=== PATIENT | female | born 1955 | race Caucasian/White ===

== ENCOUNTER 2019-06-23 18:11 | Emergency (ER) | payer MEDICAID, SELFPAY ==
--- NOTE | 2019-06-23 18:24 | XR_ITS ---
WS: [id number] RIGHT KNEE: 3 VIEW(S) TECHNIQUE: AP, oblique(s) and lateral. HISTORY: injury COMPARISON: 10/21/2018 Mild narrowing of the medial and patellofemoral compartments. Chondrocalcinosis in the medial and lat eral compartments. No joint effusion. XR/XR knee RT 3V* [id number] IMPRESSION: 1. Mild osteoarthritis medial and patellofemoral compartments. 2. No fracture.
[2019-06-23 18:50] VITALS: BMI 39.3
--- NOTE | 2019-06-23 19:52 | W.ED.EXTPRO ---
HPI - Extremity Problem General: Chief complaint: Extremity Problem,Nontraumatic Stated complaint: right knee pain Time Seen by Provider: 06/23/19 19:52 History of Present Illness: HPI Narrative: Kellie is a very nice 63-year-old female who comes in complaining of right medial knee pain. She states that she does not remember a specific injury but it is very possible she may have twisted or turned on her knee wrong. She states that she has chronic pain in it for secondary to osteoarthritis. When asked to indicate where her pain was she states is primarily along the medial aspect but when she bears weight it hurts more around to the front. She denies any fever, knee swelling, redness, pain in her thigh or calf, or chest pain or shortness of breath. Associated symptoms: Deny chest pain, fever(s) or rash Review of Systems General: Reports: other (negative unless marked) Const: Denies: fever, chills, body aches, fatigue, malaise or diaphoresis Eyes: Denies: change in vision or blurry vision ENMT: Denies: throat pain, painful swallowing, hoarseness, ear pain, ear discharge, Change in hearing or nasal discharge Card: Denies: chest pain, palpitations, irregular heart rhythm, syncope, pre-syncope, shortness of breath on exertion or shortness of breath when lying down Resp: Denies: shortness of breath, productive cough, non-productive cough, wheezing, coughing up blood or chest congestion GI: Denies: abdominal pain, nausea, vomiting, vomiting blood, coffee grounds in vomit, diarrhea, constipation, cramping, blood in stool or black tarry stool : Denies: flank pain, painful urination, urinary frequency, urinary urgency, decreased urine ouput, urinary incontinence or blood in urine Musc: Reports: joint pain; Denies: neck pain, back pain, extremity pain, extremity swelling, joint swelling, joint warmth or joint stiffness Skin/Breast: Denies: rash, skin tenderness or yellow skin Neuro: Denies: headache, numbness in extremities, weakness in extremities, changes in sensation, lack of coordination, difficulty walking, dizziness, vertigo or confusion Endo: Denies: excessive thirst, tired all the time, cold intolerance, excessive sweating, flushing or hot flashes [place]/Lymph: Denies: easy bruising, easy bleeding, petechiae or enlarged lymph nodes All/Imm: Denies: hives, throat swelling, tongue swelling, facial swelling or acute wheezing PFSH ED PFSH: Medical History Coronary artery disease Fibromyalgia GERD (gastroesophageal reflux disease) Hyperlipidemia Hypertension Surgical History History of left knee replacement Family History Other CAD (coronary artery disease) Cancer Diabetes Social History Smoking and tobacco status: never smoked Physical Exam Extremity: OTHER: Right knee with mild pain while patient along the medial joint line and medial collateral ligament. No warmth to the touch, no swelling noted. No pain in the popliteal fossa. No cordlike structure or pain in the calf or thigh. Negative Homans sign. No evidence of DVT based upon exam. Leg is neurovascularly intact distal. MDM - Extremity (Nontraumatic) MDM Narrative: Medical decision making narrative: Ms. Cash is a very nice 63-year-old female who comes in complaining of right knee pain along the medial joint line and anterior aspect. Her x-rays reveal osteoarthritis changes but no other acute findings. Patient states that she has more pain when she bears weight and the pain radiates around to the front of her knee. At this point time I do not suspect a septic joint as she has no fever, no chills, the knee is not swollen or hot. I did discuss with her the possibility of a DVT although she has no history of DVT. Her pain is only in her knee and not in her lower leg or thigh. Her pain is mostly when she ambulates and not at rest. She adamantly denies any chest pain or shortness of breath. Nonetheless I recommended we do an ultrasound to evaluate for this but she refuses. She was to be discharged home with something for pain. She states she would rather have a work-up done by Dr. Chacon as he is worked on her in the past and she chooses to follow-up with him the weight here and have anything else done. I believe some of this decision is secondary to the pandemic of COVID-19 and she does not want to be around here but simply wants something for pain. I do believe pain medication is warranted here but I wish she would let us evaluate her knee further but she declines. She understands the risks of a DVT including ultimately or severe permanent disability by pulmonary embolism but despite this she refuses any further work-up and wants to be discharged home. Imaging Data^: Rt. Knee : Attestation: I personally reviewed and interpreted this imaging study as follows: My impression: Degenerative changes but no evidence of acute fracture or dislocation. Discharge Plan Discharge Patient Disposition: Home, Self-Care Clinical Impression: Acute knee pain Qualifiers: Laterality: right Qualified Code(s): M25.561 - Pain in right knee Condition: Stable Prescriptions: [place] 5-325 mg tablet 1 tab PO Q6H PRN (Reason: pain) 5 Days Qty: 10 RF: 0 Discharge Orders: Discharge Order (Routine); Ordered 06/23/19 Ordered By: Gertrudis Morelos Referrals: Bhargav Chacon MD [Physician] - 1-3 days Ghulam Pettit MD [Primary Care Provider] - Discharge Diet: Advance as tolerated Discharge Activity: Limit activity as instructed and Use walker/crutches as instructed Patient Instructions: Knee Pain (ED) Activity Restrictions/Additional Instructions: Please return to the ER immediately for any of the signs or symptoms listed on your discharge instruction sheets, worsening/changing of your symptoms, you are not getting better as quickly as expected, or for ANY other cause or concerns. Use your knee immobilizer and crutches at all times and do not bear weight on your leg if you have pain. I have recommended and offered to do an ultrasound to rule out a blood clot in your leg which can be a life-threatening issue but you have refused. If you change your mind or you develop pain in your upper leg or your calf it is imperative you return for further evaluation and care. Be certain to follow-up with Dr. Chacon as soon as possible. Discharge Date/Time: 06/23/19 20:04 Coding Level of Care Code ED Health Safety Engineer for Blaise Burks
--- NOTE | 2019-06-23 21:21 | PC.NURSE ---
assess patient in triage, Dr Morelos saw pt in triage room. pt refused ultrasound of leg. states that she has an appt with ortho dr in july. wrapped pts knee up and provided her with discharge paperwork
--- NOTE | 2019-06-25 09:56 | DCPLANNER ---
manager field had message to schedule follow up appointment for patient with ortho. manager field called the ortho clinic, spoke with Kimmie, gave clinic patients information. manager field was told that patients information would be printed and reviewed. Clinic will call family preservation caseworker and patient with appointment information.
--- NOTE | 2019-06-26 12:40 | DCPLANNER ---
Patient has a follow up appointment scheduled for July at 3:[address] Chacon. Clinic will call patient with appointment information.
--- NOTE | 2019-08-27 15:15 | DCPLANNER ---
Patient did attend appointment scheduled for 07.23.19 with ortho.
== END 2019-06-23 20:04 | disposition home or self-care (01) ==
LOC: ER 20:04
PROVIDERS: Emergency Provider Emergency Medicine; Family Provider Family Medicine; PCP Family Medicine
DX: M25.561 Pain in right knee (principal); I25.10 Atherosclerotic heart disease of native coronary artery without angina pectoris; M79.7 Fibromyalgia; E78.5 Hyperlipidemia, unspecified; K21.9 Gastro-esophageal reflux disease without esophagitis; I10 Essential (primary) hypertension; Z82.49 Family history of ischemic heart disease and other diseases of the circulatory system; Z83.3 Family history of diabetes mellitus
CPT/HCPCS: 12345; 73562; 99281; 99283

== ENCOUNTER 2019-09-21 12:07 | Observation (INO) | payer MEDICAID, SELFPAY ==
[2019-09-18 08:06] VITALS: BMI 38.7
--- NOTE | 2019-09-18 08:16 | ECG_ITS ---
[facility] Test Date: 2019-09-18 Pat Name: Kellie Cash Department: Room: Gender: Female Diagram Clerk: : 1955 Requested By: Jabier Bryant Order Number: [id number] Shyla MD: Santosh Salguero M.D. Measurements Intervals [place] Rate: 57 P: 26 AL: 167 QRS: 5 QRSD: 94 T: 21 QT: 423 QTc: 414 Interpretive Statements SINUS BRADYCARDIA Compared to ECG 05/28/2017 12:56:28 Sinus rhythm no longer present Electronically Signed On 09-18-2019 19:06:14 CDT by Santosh Salguero M.D. [id number]
--- NOTE | 2019-09-18 08:26 | ANES.PREANE2 ---
Pre-Anesthetic Assessment Pre-Anesthetic Assessment: Height/Weight: Height 1.57 m Weight 96.162 kg Preop Diagnosis: Osteoarthritis left knee Proposed Procedure: Operation Date: 09/21/19 09:25 Proposed Procedures p Total Knee Arthroplasty Right/76427 M17.11(Right) - Bhargav Chacon MD Social: Social History: No alcohol and No tobacco Exam: Pre-Anes Outpt Exam: alert, oriented x 3, clear to auscultation bilaterally and regular rate & rhythm Airway: Submandibular: WNL Cervical ROM: WNL MP: 2 Dentition: Other (poor dentation) History/ROS: No significant history except as noted Pulmonary: Pulmonary: None reported CV/HEM: CV/HEM: CAD and HTN : : None reported Hepatic: Hepatic: None reported GI: GI: None reported Metabolic: Metabolic: DM, Hyperlipidemia and Morbid obesity Musc/skel: Musc/skel: Lower Back Pain and OA/DJD Neuropsych: Neuropsych: None reported Anesthetic Plan: ASA status: 3 Anesthesia: Anesthesia Evaluation, Eval. for regional block, General and Regional (specify below) (right AC) Risk of > 500 ml blood loss (7ml/kg in children): No PFSH Anesthesia PFSH: Medical History Coronary artery disease Fibromyalgia GERD (gastroesophageal reflux disease) Hyperlipidemia Hypertension Surgical History History of left knee replacement Family History Other CAD (coronary artery disease) Cancer Diabetes Social History Smoking and tobacco status: never smoked Data Anesthesia Cardiac Studies: No Data to Display
[2019-09-18 09:07] LABS: Basophils # 0.1 10^3/uL (0.0-0.1); Basophils % 0.7 %; Eosinophils # 0.2 10^3/uL (0.0-0.8); Eosinophils % 2.2 %; Hematocrit 40.3 % (37.0-47.0); Hemoglobin 13.4 g/dL (11.5-15.3); Lymphocytes # 2.9 10^3/uL (0.8-4.8); Lymphocytes % 39.6 %; Mean Corpuscular HGB Conc 33.3 g/dL (30.0-36.0); Mean Corpuscular Hemoglobin 31.9 pg (28.0-34.0); Mean Platelet Volume 11.9 fL (7.4-10.4); Monocytes # 0.5 10^3/uL (0.2-0.9); Monocytes % 7.4 %; Neutrophils # 3.59 10^3/uL (1.8-7.7); Neutrophils % 49.8 %; Nucleated Red Blood Cells % 0 %; Platelet Count 218 10^3/cmm (130-400); Red Cell Distribution Width 12.5 % (12.1-15.1); White Blood Count 7.2 10^3/uL (4.0-10.0)
[2019-09-18 09:26] LABS: Add Urine Culture? No; Add Urine Microscopic? YES; Bacteria Urine 1+; Bilirubin Urine Neg (NEGATIVE); Blood Urine Neg (Negative); Glucose Urine UA Norm (Normal); Ketones Urine Negative (Negative); Leukocyte Esterase Urine 2+ (Negative); Mucus Urine 1+; Nitrate Urine Negative (Negative); Protein Urine Neg (Negative); RBC Urine 0-4 /hpf (0-2); Specific Gravity, Urine 1.015 (1.005-1.030); Urine Appearance SL Hazy (CLEAR); Urine Color Yellow (Yellow); Urobilinogen Urine 1 mg/dL (Negative); pH Urine 5 (5-7)
[2019-09-18 10:42] LABS: Alanine Aminotransferase 20 U/L (0-33); Albumin Level 4.2 g/dL (3.5-5.2); Alkaline Phosphatase 72 IU/L (35-105); Anion Gap 15.5 (5-19); Aspartate Amino Transferase 22 U/L (0-32); Blood Urea Nitrogen 10 mg/dL (8-23); Calcium 9.1 mg/dL (8.5-10.5); Carbon Dioxide 27 mmol/L (22-29); Chloride 100 mmol/L (98-107); Globulin 2.7 g/dL (1.3-4.6); Glomerular Filtration Rate 124.6 mL/min (90-130); Glucose 124 mg/dL (65-115); Osmolality Calculated 285 mOsm/kg (285-295); Potassium 3.5 mmol/L (3.5-5.1); Sodium 139 mmol/L (136-145); Total Bilirubin 0.3 mg/dL (0.15-1.2); Total Protein 6.9 g/dL (6.6-8.7)
[2019-09-21] VITALS (20 sets, daily range): BP systolic 123–175; BP diastolic 79–99; PULSE 62–108; RESP 12–18; TEMP 36.4–37; O2SAT 90–100
[2019-09-21] MEDS: sodium chloride 0.9% 1,000 ML 30 ML IV (07:54)
[2019-09-21 07:55] LABS: Glucose Point of Care 144 mg/dL (70-110)
[2019-09-21] MEDS: fentaNYL 50 mcg/mL INJ 2mL 100 MCG IVP (08:35)
--- NOTE | 2019-09-21 08:36 | ANES.PREANE2 ---
Pre-Anesthetic Assessment Pre-Anesthetic Assessment: Height/Weight: Height 1.57 m Weight 96.162 kg Temp Pulse Resp BP Pulse Ox 97.9 F 62 17 155/95 95 09/21/19 07:38 09/21/19 07:38 09/21/19 08:35 09/21/19 07:38 09/21/19 07:38 Preop Diagnosis: Osteoarthritis left knee Proposed Procedure: Operation Date: 09/21/19 09:25 Proposed Procedures p Total Knee Arthroplasty Right/85022 M17.11(Right) - Bhargav Chacon MD Was Beta Quinn taken within 24 hours: Yes Last intake: Intake Last Liquid Date 09/21/19 Last Liquid Time 06:00 Last Solid Date 09/20/19 Last Solid Time 18:00 Social: Social History: No alcohol and No tobacco Exam: Pre-Anes Outpt Exam: alert, oriented x 3, clear to auscultation bilaterally and regular rate & rhythm Airway: Submandibular: WNL Cervical ROM: WNL MP: 2 History/ROS: No significant complaints Pulmonary: Pulmonary: None reported CV/HEM: CV/HEM: HTN : : None reported Hepatic: Hepatic: None reported GI: GI: GERD Metabolic: Metabolic: DM and Morbid obesity Musc/skel: Musc/skel: OA/DJD Neuropsych: Neuropsych: None reported Anesthetic Plan: ASA status: 3 Anesthesia: General and Regional (specify below) Other: Right Adductor Canal Block Risk of > 500 ml blood loss (7ml/kg in children): Yes, adequate IV access and fluids planned Meds/Allergies Current Medications: Current Medications Generic Name Dose Route Start Last Admin Trade Name Freq PRN Reason Stop Dose Admin Sodium Chloride 1,000 mls @ 30 ml s/hr 09/21/19 07:30 09/21/19 07:54 Sodium Chloride 0.9% IV 09/22/19 07:29 30 mls/hr .Q24H ALESSIO Administration PFSH Anesthesia PFSH: Medical History Coronary artery disease Fibromyalgia GERD (gastroesophageal reflux disease) Hyperlipidemia Hypertension Surgical History History of left knee replacement Family History Other CAD (coronary artery disease) Cancer Diabetes Social History Smoking and tobacco status: never smoked Data Anesthesia CBC & Chem 7: 09/18/19 08:42 09/18/19 08:42 Other Labs: Laboratory Results - last 48 hr 09/21/19 07:53 POC Glucose 144 Cardiac Studies: No Data to Display
--- NOTE | 2019-09-21 08:39 | ANES.PREANE2 ---
Pre-Anesthetic Assessment Pre-Anesthetic Assessment: Height/Weight: Height 1.57 m Weight 96.162 kg Temp Pulse Resp BP Pulse Ox 97.9 F 62 17 155/95 95 09/21/19 07:38 09/21/19 07:38 09/21/19 08:35 09/21/19 07:38 09/21/19 07:38 Preop Diagnosis: Osteoarthritis left knee Proposed Procedure: Operation Date: 09/21/19 09:25 Proposed Procedures p Total Knee Arthroplasty Right/15496 M17.11(Right) - Bhargav Chacon MD Last intake: Intake Last Liquid Date 09/21/19 Last Liquid Time 06:00 Last Solid Date 09/20/19 Last Solid Time 18:00 Meds/Allergies Current Medications: Current Medications Generic Name Dose Route Start Last Admin Trade Name Freq PRN Reason Stop Dose Admin Sodium Chloride 1,000 mls @ 30 ml s/hr 09/21/19 07:30 09/21/19 07:54 Sodium Chloride 0.9% IV 09/22/19 07:29 30 mls/hr .Q24H ALESSIO Administration PFSH Anesthesia PFSH: Medical History Coronary artery disease Fibromyalgia GERD (gastroesophageal reflux disease) Hyperlipidemia Hypertension Surgical History History of left knee replacement Family History Other CAD (coronary artery disease) Cancer Diabetes Social History Smoking and tobacco status: never smoked Data Anesthesia CBC & Chem 7: 09/18/19 08:42 09/18/19 08:42 Other Labs: Laboratory Results - last 48 hr 09/21/19 07:53 POC Glucose 144 Cardiac Studies: No Data to Display Anesthesia Procedures Nerve Block ^: Nerve Block 1: Time Out Performed: No Consent: requested by attending/covering physician, risks and benefits reviewed and patient agrees to proceed Nerve block location: adductor canal (Right) Anesthesia monitors applied: pulse oximetry and BP cuff Nerve block position: supine Anesthetic Used: ropivicaine 0.5% (20 ml) Ultrasound used to: recognize landmarks Nerve Stimulator Used?: No Interscalene/Femoral BLK: 4 stimuplex 21 g needle used for position and inplane approach Injection: neg aspiration of heme Patient Tolerated Procedure: well, no complications and other Complications: none
--- NOTE | 2019-09-21 08:52 | P.HP_ITS ---
Same Day Surgery H&P Indication for Procedure/HPI DATE OF PROCEDURE: September 21, 2019 CHIEF COMPLAINT/INDICATIONFOR SURGICAL PROCEDURE: Osteoarthritis right knee PREOP DIAGNOSIS: Osteoarthritis left knee PLANNED PROCEDRUE: Operation Date: 09/21/19 09:25 Proposed Procedures p Total Knee Arthroplasty Right/77633 M17.11(Right) - Bhargav Chacon MD Medications/Allergies* Home Medications Medication Instructions Recorded Confirmed Type aspirin 325 mg PO DAILY 09/18/19 09/21/19 History cetirizine 10 mg PO DAILY 09/18/19 09/21/19 History cholecalciferol (vitamin D3) 25 mcg PO DAILY 09/18/19 09/21/19 History [Vitamin D3] famotidine 20 mg PO BID 09/18/19 09/21/19 History fluoxetine 20 mg PO DAILY 09/18/19 09/21/19 History gabapentin 400 mg PO BID 09/18/19 09/21/19 History indapamide 2.5 mg PO DAILY 09/18/19 09/21/19 History metformin 1,000 mg PO BID 09/18/19 09/21/19 History metoprolol tartrate 25 mg PO BID 09/18/19 09/21/19 History potassium chloride 20 meq PO DAILY 09/18/19 09/21/19 History simvastatin 20 mg PO DAILY 09/18/19 09/21/19 History Allergies/Adverse Reactions Allergy/AdvReac Type Severity Reaction Status Date / Time celecoxib [From Celebrex] Allergy ALGY-Rash Verified 09/21/19 07:38 codeine Allergy ALGY-Rash Verified 09/21/19 07:38 lisinopril Allergy ALGY-Rash Verified 09/21/19 07:38 lorazepam [From Ativan] Allergy ADR-Halluci Verified 09/21/19 07:38 nating naproxen Allergy ALGY-Rash Verified 09/21/19 07:38 nitroglycerin Allergy ALGY-Rash Verified 09/21/19 07:38 oxycodone [From Percodan] Allergy ALGY-Rash Verified 09/21/19 07:38 tramadol [From Ultram] Allergy ALGY-Rash Verified 09/21/19 07:38 Current Medications: Generic Name Dose Route Start Last Admin Trade Name Freq PRN Reason Stop Dose Admin Sodium Chloride 1,000 mls @ 30 mls/hr 09/21/19 07:30 09/21/19 07:54 Sodium Chloride 0.9% IV 09/22/19 07:29 30 mls/hr .Q24H ALESSIO Administration Pertinent History/Comorbid Conditions* Medical History (Updated 07/01/19 @ 00:00 by ) Coronary artery disease Fibromyalgia GERD (gastroesophageal reflux disease) Hyperlipidemia Hypertension Surgical History (Updated 06/23/19 @ 20:56 by Gertrudis Morelos) History of left knee replacement Family History (Updated 06/23/19 @ 20:56 by Gertrudis Morelos) Diabetes CAD (coronary artery disease) Cancer Social History Smoking and tobacco status: never smoked Pertinent Exam Findings alert, oriented x 3, clear to auscultation bilaterally and regular rate & rhythm Recommendations Surgery/Procedure today Coding Level of Care Code Acute Casting Machine Adjuster for Blaise Burks
--- NOTE | 2019-09-21 10:31 | SUR.OPER ---
1027 - Pt's Eliazar updated on surgery progress and pt status via his cell phone.
[2019-09-21] MEDS: tranexamic acid 1,000 mg/10mL SDV 1000 MG IRRIGATION (10:44)
[2019-09-21] MEDS: EPINEPHrine 1 mg/mL INJ XX (10:47)
[2019-09-21] MEDS: ketorolac 30 mg/mL INJ XX (10:47)
--- NOTE | 2019-09-21 11:18 | P.OP_ITS ---
Operative Report Date of procedure: September 21, 2019 Pre-op Diagnosis: Osteoarthritis right knee Post-op diagnosis: same Post-op Findings: Same Procedure Done: Right total knee arthroplasty Implants: Eris total knee arthroplasty components were used includin) Size 3 triathalon cruciate retaining femoral component 2) Size 3 Tritanium tibial component 3) 29 mm /9 mm thickness Tritanium asymetric patella 4) Size 3/11 mm thickness CR tibial bearing insert Pathology: none sent Surgeon: Bhargav Chacon Anesthesia: General and Nerve Block (Adductor canal) Estimated blood loss (mL): 200 Complications: None Findings: Patient had eburnated bone of the medial femoral condyle, medial tibial plateau, patella and trocar Condition: stable Disposition: PACU Procedure: The patient was taken to the operating room. Patient was given 1 g of tranexamic acid . The above anesthesia provided by the anesthesia service. A timeout was performed. The patient was prepped and draped in the usual fashion with the lower extremity exposed. A anterior incision was made, midline, from a point proximal to the patella to the distal tibial tubercle. Knee was entered through a medial parapatellar approach the patella could be displaced laterally and the knee flexed. The patellar fat pad was resected to provide better visibility. Retractors were placed medially and laterally adjacent to the tibial plateau. The femoral canal was drilled in line with the longitudinal axis of the femur. Intramedullary femoral guide for used to make a distal femoral cut in 5 degrees of valgus, resecting 8 mm from the more prominent condyle. Next the extra medullary tibial guide was placed in alignment with the longitudinal axis of the tibia. The cutting guides were set to remove just over 9 mm from the high tibial plateau. The proximal tibia was then cut. The femoral measuring guide was then placed over the distal femur. Rotation was verified checking the relationship of the guide to the condyle and the trochlear groove. The femur was measured and cut for the desired femoral component. The desired tibial baseplate was then chosen. A trial reduction with the femur tibial baseplate and polyethylene was done, assuring that the knee was stable throughout full mot ion. Ligament balancing release of the deep medial collateral ligaments from the tibia and removal of medial osteophytes off of the femur.The tibia was prepared for the tibial baseplate. Patellar thickness was then measured. The patella was cut removing articular cartilage and prepared for appropriate size patellar button. All surfaces were cleaned with pulsatile lavage. The femur tibia and patella were then press-fit into place. The posterior capsule and collateral ligaments were then injected with a solution of 100 mL of 0.2% ropivacaine, 1 mL of a 1:1000 epinephrine solution, and 30 mg of Toradol. Final polyethylene component was then snapped into place into the tibia. 2 grams of tranexamic acid were applied to the wound. The tourniquet was deflated. The tranxanemic acid was left contact with the knee for 5 minutes before the knee was irrigated with saline. The extensor retinaculum was closed with 1 Ethibond. The subcutaneous tissues were closed with 2-0 Vicryl and the skin was closed with skin gama. A compressive dressing was applied. The patient was taken to recovery room in stable condition.
--- NOTE | 2019-09-21 11:34 | XR_ITS ---
WS: [id number] Right knee, AP and lateral views, 09/21/2019 Clinical Data: That is post right total knee Comparison: Right knee, 06/23/2019. Findings: The patient has had a right knee arthroplasty. The components are in good position. Anterior gama are present. XR/XR knee RT 3V* [id number] Impression: Right knee arthroplasty.
--- NOTE | 2019-09-21 11:40 | SUR.PHASEI ---
1139- ORAL AIRWAY AND NASAL TRUMPET REMOVED. SIMPLE MASK IN PLACE AT 6LPM, SAT 98%
[2019-09-21 13:18] LABS: Glucose Point of Care 152 mg/dL (70-110)
[2019-09-21] MEDS: sodium chloride 0.9% 1,000 ML 80 ML IV (13:28)
[2019-09-21] MEDS: chlorhexidine gluconate 0.12% Btl 473 mL 30 ML MUCOUS MEM ×3 (13:29→20:50)
[2019-09-21] MEDS: HYDROcodone-acetaminophen 5-325 mg Tablet 1 TAB PO ×2 (16:07→20:36)
[2019-09-21 17:24] LABS: Glucose Point of Care 138 mg/dL (70-110)
[2019-09-21] MEDS: ondansetron 2 mg/ML SDV 2 mL 4 MG IVP (18:17)
[2019-09-21] MEDS: gabapentin 400 mg Capsule PO (18:19)
[2019-09-21] MEDS: metoprolol tartrate 25 mg Tablet PO (18:19)
[2019-09-21] MEDS: mupirocin oint 22 gm 1 APPLIC TOPICAL (18:19)
[2019-09-21] MEDS: sennosides-docusate Tablet 2 TAB PO (18:19)
[2019-09-21 20:25] LABS: Glucose Point of Care 169 mg/dL (70-110)
[2019-09-22] VITALS (7 sets, daily range): BP systolic 116–132; BP diastolic 65–83; PULSE 67–85; RESP 16–19; TEMP 36.1–36.8; O2SAT 93–94
[2019-09-22] MEDS: sodium chloride 0.9% 1,000 ML 80 ML IV (01:53)
[2019-09-22] MEDS: HYDROcodone-acetaminophen 5-325 mg Tablet 1 TAB PO ×2 (01:56→07:11)
[2019-09-22] MEDS: morphine 4 mg/mL SDV 1 mL 2 MG IVP (03:14)
[2019-09-22 03:56] LABS: Hemoglobin 10.7 g/dL (11.5-15.3)
[2019-09-22 06:32] LABS: Glucose Point of Care 186 mg/dL (70-110)
--- NOTE | 2019-09-22 07:41 | P.PN_ITS ---
Subjective Subjective: Interval history: Patient complains of pain with foot pumps as well as knee. Incomplete pain relief with Brooks 5. Tolerating some p.o. intake. Vitals/I&O/Wt Last Vital Signs Temp 97.4 F L 09/22/19 07:26 Pulse 85 09/22/19 07:26 Resp 16 09/22/19 07:26 BP 116/73 09/22/19 07:26 Pulse Ox 93 09/22/19 07:26 09/21/19 09/22/19 09/22/19 22:59 06:59 14:59 Intake Total 240 / 1600 993.333 / 2593.333 Output Total 810 / 1110 Balance 240 / 1300 183.333 / 1483.333 Physical Exam Narrative: EXAM NARRATIVE: Right knee dressing clean and dry Moves toes and ankle right foot Urinary Catheter Management^: [place]: Cath Placed During This Visit: yes, but has since been removed by the nurse Reason for Continuing Indwelling Catheter: Decision to DC Catheter Urinary Catheter Date of Insertion: 09/21/19 Urinary Catheter Time of Insertion: 09:40 Date Urinary Catheter Removed: 09/22/19 Time Urinary Catheter Discontinued: 07:00 Data : 09/22/19 03:35 09/18/19 08:42 A&P Assessment and plan (1) Status post right knee replacement: Patient with pain unrelieved on Brooks 5. Unfortunately multiple allergies we have is a few options for pain control. Will increase Brooks to 7.5. Continue to mobilize with therapy. Status: Acute (2) Diabetes mellitus: Blood sugars under good control Status: Acute Attestations Medical Necessity Statement*: Will reevaluate for pain control this afternoon. May need additional day hospitalization. Coding Level of Care Code Acute Social Services Director for Blaise Fwd Diagnoses Status post right knee replacement Z96.651 Diabetes mellitus E11.9
[2019-09-22] MEDS: sennosides-docusate Tablet 2 TAB PO ×2 (09:02→17:06)
[2019-09-22] MEDS: fluoxetine 20 mg Capsule PO (09:03)
[2019-09-22] MEDS: atorvastatin 40 mg Tablet 20 MG PO (09:03)
[2019-09-22] MEDS: aspirin 325 mg Tablet PO (09:03)
[2019-09-22] MEDS: cetirizine 10 mg Tablet PO (09:03)
[2019-09-22] MEDS: metoprolol tartrate 25 mg Tablet PO ×2 (09:03→17:06)
[2019-09-22] MEDS: gabapentin 400 mg Capsule PO ×2 (09:03→17:07)
[2019-09-22] MEDS: potassium chloride ER 10 mEq Tablet 20 MEQ PO (09:04)
[2019-09-22] MEDS: mupirocin oint 22 gm 1 APPLIC TOPICAL ×2 (09:05→17:07)
[2019-09-22] MEDS: chlorhexidine gluconate 0.12% Btl 473 mL 30 ML MUCOUS MEM ×2 (09:09→11:57)
[2019-09-22 11:36] LABS: Glucose Point of Care 232 mg/dL (70-110)
[2019-09-22] MEDS: HYDROcodone-acetaminophen 7.5-325 mg Tablet 1 TAB PO (11:58)
[2019-09-22 16:28] LABS: Glucose Point of Care 197 mg/dL (70-110)
--- NOTE | 2019-09-23 12:49 | PM.DCS ---
Discharge Providers Date of Admission: 09/21/19 12:07 Date of Discharge: September 23, 2019 Attending Provider at Admission: Bhargav Chacon MD Attending Provider at Discharge: Bhargav Chacon MD Primary Care Provider: Ghulam Pettit MD Diagnoses at Discharge Discharge Diagnosis (1) Status post right knee replacement: Status: Acute (2) Diabetes mellitus: Status: Acute Reason for Visit Reason for Visit: Primary osteoarthritis of right knee Hospital Course Hospital Course: The patient was admitted for an elective right total knee arthroplasty. Postoperatively she did well. By the first postoperative day her pain was under good control and she was thought stable for discharge. He was managed on aspirin and foot pumps for DVT prophylaxis. She remained hemodynamically stable throughout her hospitalization. Physical Exam Narrative: EXAM NARRATIVE: On the day of discharge Ms. Shailesh gallo incision was clean. She had minimal swelling in her knee and calf. She can flex extend her toes and her ankle without any motor deficits. Her sensation was intact light touch. Urinary Catheter Management^: [place]ak[place]: Cath Placed During This Visit: yes, but has since been removed by the nurse Reason for Continuing Indwelling Catheter: Decision to DC Catheter Urinary Catheter Date of Insertion: 09/21/19 Urinary Catheter Time of Insertion: 09:40 Date Urinary Catheter Removed: 09/22/19 Time Urinary Catheter Discontinued: 07:00 Discharge Data Data Completed and Pending: Completed Studies During Hospitalization Category Date Time Status XR knee RT 3V* [id number] 562 Routine Exams 09/21/19 11:34 Completed Labs from last 24 hours 09/22/19 16:23 POC Glucose 197 Vitals: Last Vital Signs Temp 97.1 F L 09/22/19 17:15 Pulse 72 09/22/19 17:15 Resp 16 09/22/19 17:15 BP 129/78 09/22/19 17:15 Pulse Ox 94 09/22/19 17:15 Discharge Plan Discharge Patient Disposition: Home, Self-Care Condition: Stable Prescriptions: New hydrocodone-acetaminophen 7.5-325 mg Tablet 1 tab PO Q4H PRN (Reason: Moderate Pain) Qty: 30 RF: 0 Continued mupirocin 2 % ointment 1 applic TOPICAL BID Qty: 22 RF: 0 cetirizine 10 mg Tablet 10 mg PO DAILY RF: 0 indapamide 2.5 mg tablet 2.5 mg PO DAILY RF: 0 aspirin 325 mg Tablet 325 mg PO DAILY RF: 0 gabapentin 400 mg capsule 400 mg PO BID RF: 0 potassium chloride 20 mEq tablet,ER particles/crystals 20 meq PO DAILY RF: 0 famotidine 20 mg Tablet 20 mg PO BID RF: 0 simvastatin 20 mg tablet 20 mg PO DAILY RF: 0 metformin 1,000 mg tablet 1,000 mg PO BID RF: 0 fluoxetine 20 mg capsule 20 mg PO DAILY RF: 0 cholecalciferol (vitamin D3) [Vitamin D3] 25 mcg (1,000 unit) Capsule 25 mcg PO DAILY RF: 0 metoprolol tartrate 25 mg tablet 25 mg PO BID RF: 0 Discharge Orders: Discharge Order (Routine); Ordered 09/22/19 Ordered By: Bhargav Chacon Other Ambulatory Orders: Physical Therapy Eval and Treat Outpatient (Order) Timeframe: 2 Days Facility: [facility] - Location: Physical Therapy Ordered By: Bhargav Chacon Referrals: Bhargav Chacon MD [Physician] - 10/05/19 2:15 pm Discharge Activity: Limit activity as instructed Patient Instructions: Type 2 Diabetes, Hydrocodone/Acetaminophen (By mouth), Total Knee Replacement (DC), Surgical Site Infections (GEN) Activity Restrictions/Additional Instructions: Discontinue hospital dressing in 48 hours Change dressing as needed for drainage Okay to sponge bathe and showers while gama in place as long as incision is free of drainage Full weight bearing with walker. Range of motion as tolerated Pain medications: [place] 7.5 Discharge Date/Time: 09/22/19 17:16 Discharge Attestations Time Spent in Discharge Care*: other Quality Metrics Clinical Quality Measures During this hospital stay, did patient experience: None Coding Level of Care Code Acute Mirror Machine Feeder for [facility] Fwd Diagnoses Status post right knee replacement Z96.651 Diabetes mellitus E11.9
== END 2019-09-22 17:16 | disposition home or self-care (01) ==
LOC: MEDSURG 12:07
PROVIDERS: Anesthesiology; Admitting Provider Orthopaedic Surgery; PCP Family Medicine; Visit Provider Orthopaedic Surgery
PROC: (CPT 27447; principal; 2019-09-21 09:25)
DX: M17.11 Unilateral primary osteoarthritis, right knee (principal); E11.9 Type 2 diabetes mellitus without complications; Z79.82 Long term (current) use of aspirin; Z79.84 Long term (current) use of oral hypoglycemic drugs; I25.10 Atherosclerotic heart disease of native coronary artery without angina pectoris; E78.5 Hyperlipidemia, unspecified; M79.7 Fibromyalgia; Z82.49 Family history of ischemic heart disease and other diseases of the circulatory system; Z83.3 Family history of diabetes mellitus; I10 Essential (primary) hypertension; E66.01 Morbid (severe) obesity due to excess calories; Z68.38 Body mass index [BMI] 38.0-38.9, adult; M19.90 Unspecified osteoarthritis, unspecified site
CPT/HCPCS: 27447; 12345; 36415; 36416; 51702; 73562; 80053; 81001; 81003; 82962; 85018; 85025; 93005; 94669; 96361; 96365; 96372; 96374; 96375; 97110; 97116; 97161; 97165; 97530; C1776; G0378; J0171; J0690; J1580; J1815; J1885; J2270; J2405; J2704; J2795; J3010; J3490; J7030

== ENCOUNTER 2019-10-06 09:25 | Outpatient (RCR) | payer SELFPAY | END 2019-10-09 23:59 | disposition home or self-care (01) | LOC: SPT 09:25 | PROVIDERS: PCP Family Medicine; Referring Provider Orthopaedic Surgery; Visit Provider Orthopaedic Surgery | DX: Z47.1 Aftercare following joint replacement surgery (principal); Z96.651 Presence of right artificial knee joint | CPT/HCPCS: 97110; 97161 ==

== ENCOUNTER 2019-10-10 06:00 | Outpatient (RCR) | payer SELFPAY | END 2019-11-09 23:59 | disposition home or self-care (01) | LOC: SPT 06:00 | PROVIDERS: PCP Family Medicine; Referring Provider Orthopaedic Surgery; Visit Provider Orthopaedic Surgery | DX: Z47.1 Aftercare following joint replacement surgery (principal); Z96.651 Presence of right artificial knee joint | CPT/HCPCS: 97110; 97112 ==

== ENCOUNTER → 2019-11-03 10:53 | Outpatient (BNVA) | payer MEDICAID, SELFPAY | PROVIDERS: PCP Family Medicine; Visit Provider Orthopaedic Surgery | DX: Z96.651 Presence of right artificial knee joint (principal) | CPT/HCPCS: 73562 ==

== ENCOUNTER 2020-11-09 09:18 | Emergency (ER) | payer MEDICARE, MEDICAID, SELFPAY ==
[2020-11-09 09:22] VITALS: BP 152/71; PULSE 62; RESP 16; TEMP 37; O2SAT 98; BMI 38.4
--- NOTE | 2020-11-09 09:43 | XR_ITS ---
WS: [id number] Right knee, AP and lateral views, 11/09/2020 Clinical Data: fall Comparison: Right knee, 11/03/2019. Findings: The right knee arthroplasty components remain intact. No loosening is seen. There are no fractures or dislocations. XR/XR knee RT 1-2V 65948 Impression: Right knee arthroplasty.
--- NOTE | 2020-11-09 09:43 | XR_ITS ---
WS: [id number] Left knee, AP and lateral views, 11/09/2020 Clinical Data: fall Comparison: Left knee, 06/03/2018 Findings: The left knee arthroplasty is in good position. The patellar component of the arthroplasty remains in position. The erosive changes of the superior patella are seen but unchanged. No fractures or dislocations are noted. The soft tissues are normal. XR/XR knee LT 1-2V [id number] Impression: Intact left knee arthroplasty.
--- NOTE | 2020-11-09 09:44 | ED_ITS ---
HPI - Extremity Problem General: Chief complaint: Extremity Injury, Lower Stated complaint: FELL 4 DAYS AGO:BILATERAL KNEE(BOTH REPLACED) Time Seen by Provider: 11/09/20 09:21 History of Present Illness: HPI Narrative: Patient states that she fell a few days ago landing on both knees now she has pain in both knees. Says it hurts to ambulate but can bend the knee is not difficulty says she has had a little bit of swelling has been applying ice to those areas. She has a history of bilateral knee replacements. MD Complaint: joint pain Onset (ago): day(s) Pain Consistency: constant Location: knee Severity scale (1-10): 4 Quality: aching Radiation: none Relieving factors: immobilization Exacerbating factors: weight bearing Associated symptoms: Reports no associated symptoms; Deny chest pain, fever(s) or rash Review of Systems Const: Denies: fever(s), chills or body aches Eyes: Denies: change in vision or blurry vision ENMT: Denies: throat pain or nasal congestion Card: Denies: chest pain or dyspnea on exertion Resp: Denies: dyspnea, productive cough or non-productive cough GI: Denies: abdominal pain, nausea or vomiting Musc: Reports: joint pain (Both knees are tender resulting from a fall a few days ago); Denies: extremity pain Skin/Breast: Denies: rash Neuro: Denies: headache(s) Psych: Denies: anxiety or depression [place]/Lymph: Denies: easy bruising [facility] ED PFSH: Medical History (Updated 11/09/20 @ 10:03 by JULIA Silveira) Coronary artery disease Fibromyalgia GERD (gastroesophageal reflux disease) Hyperlipidemia Hypertension Surgical History History of left knee replacement Family History Other CAD (coronary artery disease) Cancer Diabetes Social History Smoking and tobacco status: never smoked Physical Exam Const: COMMON NORMALS: no acute distress, average body habitus and patient oriented x3 HENMT: COMMON NORMALS: normocephalic HEAD & SCALP: normal to inspection and normocephalic FACE & SINUS: normal facial exam Eye: COMMON NORMALS: conjunctivae normal GENERAL EYE: appearance normal, both eyes and all related structures CONJUNCTIVA: Yes conjunctivae normal Neck/C-Spine: COMMON NORMALS: no JVD Chest: COMMONS NORMALS: normal inspection of the chest Resp: COMMON NORMALS: normal respiratory effort Cardio: COMMON NORMALS: no JVD, regular rate and regular rhythm RATE: regular rate RHYTHM: regular rhythm GI: COMMON NORMALS: Normal to inspection, nondistended, normoactive bowel sounds present Extremity: COMMON NORMALS: full ROM RIGHT LOWER EXTREMITY: Yes knee joint (Tender infrapatellar area mild, no swelling) LEFT LOWER EXTREMITY: Yes knee joint (Tenderness infrapatellar minimal swelling.) Neuro: COMMON NORMALS: patient oriented x3 Course Vital Signs: Vital signs: Vital Signs Temperature 98.6 F 11/09/20 09:22 Pulse Rate 62 11/09/20 09:52 Respiratory Rate 16 11/09/20 09:22 Blood Pressure 152/71 11/09/20 09:22 Pulse Oximetry 96 11/09/20 09:52 MDM - Extremity (Nontraumatic) MDM Narrative: Medical decision making narrative: Bilateral knee contusion. Follow-up primary care provider. Discharge Plan Discharge Patient Disposition: Home Clinical Impression: Contusion Qualifiers: Encounter type: initial encounter Contusion area: knee Laterality: unspecified laterality Qualified Code(s): S80.00XA - Contusion of unspecified knee, initial encounter Condition: Stable Prescriptions: No Action oxycodone-acetaminophen [Percocet] 5-325 mg tablet 1 tab PO Q4H PRN (Reason: pain) 7 Days Qty: 40 RF: 0 hydrocodone-acetaminophen [[place]] 5-325 mg tablet 1 tab PO Q4H PRN (Reason: pain) 7 Days Qty: 30 RF: 0 mupirocin 2 % ointment 1 applic TOPICAL BID Qty: 22 RF: 0 cetirizine 10 mg Tablet 10 mg PO DAILY RF: 0 indapamide 2.5 mg tablet 2.5 mg PO DAILY RF: 0 aspirin 325 mg Tablet 325 mg PO DAILY RF: 0 gabapentin 400 mg capsule 400 mg PO BID RF: 0 potassium chloride 20 mEq tablet,ER particles/crystals 20 meq PO DAILY RF: 0 famotidine 20 mg Tablet 20 mg PO BID RF: 0 simvastatin 20 mg tablet 20 mg PO DAILY RF: 0 metformin 1,000 mg tablet 1,000 mg PO BID RF: 0 fluoxetine 20 mg capsule 20 mg PO DAILY RF: 0 cholecalciferol (vitamin D3) [Vitamin D3] 25 mcg (1,000 unit) Capsule 25 mcg PO DAILY RF: 0 metoprolol tartrate 25 mg tablet 25 mg PO BID RF: 0 hydrocodone-acetaminophen 7.5-325 mg Tablet 1 tab PO Q4H PRN (Reason: Moderate Pain) Qty: 30 RF: 0 Discharge Orders: Discharge ED (Routine); Ordered 11/09/20 Ordered By: Yony Mercer Referrals: Ghulam Pettit MD [Primary Care Provider] - Discharge Diet: Usual diet Discharge Activity: Resume usual activity Patient Instructions: Contusion in Adults (ED), Knee Pain (ED) Activity Restrictions/Additional Instructions: Apply ice to the knees as needed. Can take Tylenol for discomfort. Follow-up your primary care provider as necessary. Coding Level of Care Code ED Mobile Unit Assistant for Blaise Fwd Exam Comprehensive
[2020-11-09 09:52] VITALS: PULSE 62; O2SAT 96
== END 2020-11-09 10:41 | disposition home or self-care (01) ==
PROVIDERS: Emergency Provider Nurse Practitioner Family; PCP Family Medicine
DX: S80.02XA Contusion of left knee, initial encounter (principal); S80.01XA Contusion of right knee, initial encounter; W19.XXXA Unspecified fall, initial encounter; Z79.84 Long term (current) use of oral hypoglycemic drugs; Z79.82 Long term (current) use of aspirin; I25.10 Atherosclerotic heart disease of native coronary artery without angina pectoris; E78.5 Hyperlipidemia, unspecified; I10 Essential (primary) hypertension; Z96.653 Presence of artificial knee joint, bilateral
CPT/HCPCS: 73560; 99282

== ENCOUNTER → 2020-11-30 13:54 | Outpatient (BNVA) | payer MEDICARE, MEDICAID, SELFPAY | PROVIDERS: PCP Family Medicine; Referring Provider Nurse Practitioner Family; Visit Provider Podiatrist Foot & Ankle Surgery | DX: M79.671 Pain in right foot (principal); M77.31 Calcaneal spur, right foot | CPT/HCPCS: 73630 ==

== ENCOUNTER 2021-03-20 13:36 | Outpatient (CLI) | payer MEDICARE, MEDICAID, SELFPAY ==
--- NOTE | 2021-03-20 13:50 | MM_ITS ---
WS: [id number] BILATERAL DIGITAL SCREENING MAMMOGRAPHY WITH CAD CLINICAL INFORMATION: SCREENING HISTORY: Screening mammogram. No current complaints. COMPARISON: 019 TECHNIQUE: Bilateral CC and MLO views. FINDINGS: Scattered fibroglandular densities bilaterally. A few tiny stable punctate calcifications. Stable egg shell calcifications. No suspicious focal mass, asymmetry, calcifications, or architectural distortio n. No evidence of malignancy. MM/[place] [id number] IMPRESSION: BI-RADS: 2-Benign FOLLOW UP: 1 Year Follow-up Recommend return to annual screening mammography.
== END 2021-03-20 13:37 | disposition home or self-care (01) ==
PROVIDERS: PCP Family Medicine; Visit Provider Family Medicine
DX: Z12.31 Encounter for screening mammogram for malignant neoplasm of breast (principal)
CPT/HCPCS: 77067

== ENCOUNTER → 2021-03-22 10:58 | Outpatient (BNVA) | payer MEDICARE, MEDICAID, SELFPAY | PROVIDERS: PCP Family Medicine; Visit Provider Nurse Practitioner Family | DX: Z20.822 Contact with and (suspected) exposure to COVID-19 (principal) | CPT/HCPCS: 87635 ==

== ENCOUNTER → 2021-06-20 14:14 | Outpatient (BNVA) | payer MEDICARE, MEDICAID, SELFPAY | PROVIDERS: PCP Family Medicine; Visit Provider Podiatrist Foot & Ankle Surgery | DX: L60.3 Nail dystrophy (principal); E11.42 Type 2 diabetes mellitus with diabetic polyneuropathy; Z87.891 Personal history of nicotine dependence | CPT/HCPCS: 11721 ==

== ENCOUNTER → 2021-07-10 14:44 | Outpatient (BNVA) | payer MEDICARE, MEDICAID, SELFPAY | PROVIDERS: PCP Family Medicine; Visit Provider Internal Medicine Cardiovascular Disease | DX: I25.10 Atherosclerotic heart disease of native coronary artery without angina pectoris (principal); E78.5 Hyperlipidemia, unspecified; I10 Essential (primary) hypertension; K21.9 Gastro-esophageal reflux disease without esophagitis; R40.0 Somnolence; Z87.891 Personal history of nicotine dependence; Z79.82 Long term (current) use of aspirin | CPT/HCPCS: 99214; 99215 ==

== ENCOUNTER 2021-08-15 07:15 | Outpatient (CLI) | payer MEDICARE, MEDICAID, SELFPAY ==
[2021-08-15 07:51] VITALS: BMI 35.4
--- NOTE | 2021-08-15 07:53 | NMCV_ITS ---
NM bienvenido perf SPECT r/s* [id number] Kellie Cash Age: 65 Gender: F : 1955 Exam Date: 08/15/2021 08:58 Ordering Phys: Andres Valencia MD ([email or web address]) Technologist: JOSE A Hodge Exam Location: [facility] Indications: SHORTNESS OF BREATH STRESS TEST Please see separate stress test report in [facility]any for full findings IMAGE PROTOCOL Rest/Stress 1 Lexiscan Day Radiopharmaceutical Dose (mCi) Administration Site Administered by Rest: Tc-99m 10.7 IV JOSE A Martinez Sestamibi Stress:Tc-99m 32.8 IV JOSE A Hodge Sestamitres Rest: 15-Aug-2021 60 Discovery 630 Stress: 15-Aug-2021 30 Discovery 630 0.4mg Lexiscan. Images obtained in supine and prone position. SPECT RESULTS Technical Quality: Excellent Raw Data Analysis: Normal Image Corrections: No attenuation or motion correction applied Summed Stress Score: 5 Summed Rest Score: 5 Summed Difference Score: 1 PERFUSION FINDINGS Small to moderate area of moderately decreased tracer uptake was noted in the basal and mid inferior, mid inferolateral regions. A subtle area of reversibility was noted in the basal inferior region. However with the supine imaging, there was no significant reversible defects. FUNCTIONAL RESULTS (calculated via Gated SPECT) Stress Image LV EF (%): 86 Stress EDV (mL):71 TID: 1.15 Stress ESV (mL):10 FUNCTIONAL FINDINGS: Segmental wall motion analysis revealing no gross wall motion normalities. IMPRESSIONS 1. Myocardial perfusion imaging revealing small to moderate area of persistent decreased tracer uptake in the inferior and inferolateral region with a subtle area of reversibility in the basal inferior region, suggestive of ischemia in the distribution of the right coronary artery. However because of the inconsistency with the supine imaging the reliability is compromised. Slightly elevated transient ischemic dilatation ratio 1.15 also may assist endocardial ischemia. However the clinical correlation recommended. 2. Normal LV ejection fraction 71%. 3. LV wall motion analysis revealing no gross wall motion abnormalities. 4. Normal LV volume No similar previous studies are available for comparison Dr Andres Valencia MD [facility] (Electronically Signed) Final Date: 16 August 2021 09:18 S
--- NOTE | 2021-08-15 07:53 | ECG_ITS ---
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 Interpretive Statements NAME OF STUDY: LEXISCAN SESTAMIBI STRESS TEST INDICATION: Hx of ashd, PROCEDURE: At the baseline, the EKG revealed normal sinus rhythm with normal ST-T. The baseline blood pressure was 131/72 mm Hg with a heart rate of 83 beats/min. Lexiscan was infused over a period of 20 seconds. A total of 0.4 milligrams of Lexiscan was infused. The stress phase was continued for a total of 5 minutes. Heart rate at the end of the stress phase was 108 with a blood pressure 136/73. The EKG at the peak infusion revealed some nonspecific ST-T changes. Sestamibi was injected 20 seconds after the Lexiscan infusion. Blood pressure at the end of the recovery phase was 133/76 with a heart rate of 96 per minute. Some PVCs are noted during the recovery phase. CONCLUSION: 1. Nonspecific EKG changes with the LexiScan infusion 2. No LexiScan induced chest pain or cardiac arrhythmia 3. Normal blood pressure and heart rate response 4. Sestamibi/sestamibi perfusion scan pending; see separate report. Electronically Signed On 08-25-2021 6:38:32 CDT by Andres Valencia M.D. [email or web address]
[2021-08-15] MEDS: ondansetron 2 mg/ML SDV 2 mL 4 MG IVP (09:53)
[2021-08-15] MEDS: regadenoson 0.4 Mg/5 ml Syringe IVP (09:53)
[2021-08-15 09:58] VITALS: BP 133/76; PULSE 96
== END 2021-08-15 07:16 | disposition home or self-care (01) ==
LOC: CDL 07:19
PROVIDERS: PCP Family Medicine; Visit Provider Internal Medicine Cardiovascular Disease
DX: R06.02 Shortness of breath (principal); I25.10 Atherosclerotic heart disease of native coronary artery without angina pectoris
CPT/HCPCS: 78452; 93017; A9500; J2405; J2785

== ENCOUNTER 2021-08-17 10:10 | Emergency (ER) | payer MEDICARE, MEDICAID, SELFPAY ==
[2021-08-17 10:31] VITALS: BP 135/101; PULSE 63; RESP 18; O2SAT 98; BMI 34.5
--- NOTE | 2021-08-17 10:41 | XRR_ITS ---
PROCEDURE INFORMATION: Exam: XR Right Shoulder Exam date and time: 08/17/2021 11:00 AM Age: 65 years old Clinical indication: Pain; Shoulder; Right TECHNIQUE: Imaging protocol: XR Right shoulder. Views: 2 or more views. COMPARISON: CR Chest 2 views* [id number] 11/15/2016 8:38 AM FINDINGS: Bones/joints: No fracture or dislocation. There is mild degenerative changes of the right acromioclavicular joint, manifested by joint space narrowing and small periarticular osteophytes. The glenohumeral joint is well maintained. Soft tissues: Normal. XR/XR shoulder RT min 2V* [id number] IMPRESSION: 1. No acute fracture or dislocation. 2. Mild degenerative changes of the right acromioclavicular joint.
--- NOTE | 2021-08-17 10:42 | W.ED.EXTPRO ---
HPI - Extremity Problem General: Chief complaint: Extremity Injury, Upper Stated complaint: Right arm pain Time Seen by Provider: 08/17/21 10:36 Source: patient Mode of arrival: ambulatory Limitations: no limitations History of Present Illness: Patient is a 65-year-old female who presents to ED today with a complaint of right shoulder pain. Patient states she has been having a soreness and discomfort in her right shoulder for approximately a month now. She states over the past 3 days she feels like shoulder has become more stiff and is now having trouble with range of motion. 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 She is not having any numbness, tingling, loss of sensation. She denies any color or temperature changes to the extremity. No recent injury or trauma. MD Complaint: joint pain Onset (ago): day(s) Pain Consistency: constant Location: right and upper extremity Radiation: none Relieving factors: immobilization Exacerbating factors: range of motion Associated symptoms: Reports no associated symptoms; Deny chest pain, fever(s) or rash Review of Systems Const: Denies: fever(s), chills, body aches, fatigue or malaise Card: Denies: chest pain Resp: Denies: dyspnea GI: Denies: abdominal pain Musc: Reports: joint pain (R shoulder), joint stiffness (R shoulder) and limited range of motion; Denies: neck pain, back pain, extremity pain, extremity swelling, joint swelling, joint redness, joint warmth, muscle weakness or decrease in muscle mass Skin/Breast: Denies: rash Neuro: Denies: headache(s), numbness in extremities, weakness in extremities or sensory changes [facility] ED PFSH: Medical History Atherosclerosis Coronary artery disease Fibromyalgia GERD (gastroesophageal reflux disease) Hyperlipidemia Hypertension Palpitations Paroxysmal cardiac arrhythmia Surgical History History of left knee replacement Family History Mother Diabetes CAD (coronary artery disease) Sister Cancer Brother Cancer Father CAD (coronary artery disease) Denies family history of Clotting disorder Dementia Chronic kidney disease (CKD) Suicide Anesthesia complication Bleeding disorder Lung disease Stroke Social History Smoking and tobacco status: former smoker Physical Exam Const: COMMON NORMALS: no acute distress, patient oriented x3, no limitations and alert GENERAL APPEARANCE: cooperative NUTRITIONAL APPEARANCE: overweight ORIENTATION/CONSCIOUSNESS: Yes awake, Yes oriented to person, Yes oriented to place and Yes oriented to time HENMT: COMMON NORMALS: normocephalic and atraumatic HEAD & SCALP: normal to inspection, normocephalic and atraumatic Neck/C-Spine: COMMON NORMALS: full ROM, no lymphadenopathy and no meningeal signs GENERAL: Yes normal visual inspection CERVICAL SPINE: Yes cervical ROM normal, No pain with cervical ROM, No Cervical spine tenderness, No step off deformity, No Paracervical muscle tenderness, No Paracervical spasm, No Trapezius muscle tenderness and No Lhermitte's sign positive Resp: COMMON NORMALS: normal respiratory effort and clear to auscultation bilaterally AUSCULTATION: clear to auscultation bilaterally Cardio: COMMON NORMALS: regular rate and regular rhythm RATE: regular rate RHYTHM: regular rhythm Back/Pelvis: COMMON NORMALS: thoracic and lumbar spine normal to inspection, no thoracic nor lumbar tenderness and thoraco-lumbar ROM normal Extremity: COMMON NORMALS: capillary refill normal, no joint enlargement and no clubbing, cyanosis or edema GENERAL: Yes normal exam except as noted RIGHT UPPER EXTREMITY: Yes shoulder joint (TTP anterior joint line) Right shoulder: Yes Right shoulder joint ROM exam (pain/limited ROM past about 30-40 deg flexion/abduction), Yes Right shoulder joint neurovascular exam (normal) and Yes Right shoulder joint other findings (sensory intact; no swelling/color temp noted; strength intact) Neuro: EUSEBIO COMA SCALE: document GCS findings Eusebio coma scale eye opening: Spontaneous Eusebio coma scale verbal response: Orientated Eusebio coma scale motor response: Obey commands Eusebio coma scale total score: 15 COMMON NORMALS: patient oriented x3, moves all extremities, no focal motor deficits and no sensory deficits noted SENSORIUM/ORIENTATION: Yes alert, Yes oriented to person, Yes oriented to place and Yes oriented to time MENINGEAL SIGNS: Yes no meningeal signs Skin: COMMON NORMALS: no rashes or lesions noted GENERAL SKIN EXAM: no rashes or lesions noted Course Vital Signs: Vital signs: Vital Signs Pulse Rate 67 08/17/21 11:04 Respiratory Rate 18 08/17/21 10:31 Blood Pressure 149/84 08/17/21 11:04 Pulse Oximetry 99 08/17/21 11:04 MDM - Extremity (Nontraumatic) Medical Decision Making XR shows joint narrowing and osteophyte formation at her AC joint. This time I recommend she follow-up with her primary care provider. If they feel orthopedic follow-up is warranted they could refer her for this. Other options include possible physical therapy. She states she is allergic to all NSAIDS and many pain medications. Discussed steroid use affecting her blood sugars but patient states she has done okay with these previously so will put her these over the next few days. Lab Data Radiology Impressions Shoulder X-Ray 08/17/21 10:41 IMPRESSION: 1. No acute fracture or dislocation. 2. Mild degenerative changes of the right acromioclavicular joint. Discharge Plan Discharge Patient Disposition: Home Clinical Impression: AC joint arthropathy Condition: Stable Prescriptions: New prednisone 10 mg tablet 60 mg PO DAILY 5 Days Qty: 30 0RF No Action trazodone 50 mg tablet 50 mg PO .hs 0RF spironolactone 25 mg tablet 12.5 mg PO DAILY 0RF docusate sodium [Colace] 100 mg capsule 100 mg PO DAILY 0RF cetirizine 10 mg Tablet 10 mg PO DAILY 0RF aspirin 325 mg Tablet 325 mg PO DAILY 0RF gabapentin 400 mg capsule 400 mg PO BID 0RF famotidine 20 mg Tablet 20 mg PO BID 0RF simvastatin 20 mg tablet 20 mg PO DAILY 0RF metformin 1,000 mg tablet 1,000 mg PO BID 0RF fluoxetine 20 mg capsule 20 mg PO DAILY 0RF cholecalciferol (vitamin D3) [Vitamin D3] 25 mcg (1,000 unit) Capsule 25 mcg PO DAILY 0RF metoprolol tartrate 25 mg tablet 25 mg PO BID 0RF potassium chloride 20 mEq tablet,ER particles/crystals 20 meq PO TID 0RF Discharge Orders: Discharge ED (Routine); Ordered 08/17/21 Ordered By: Samira Reynolds Referrals: Ghulam Pettit MD [Primary Care Provider] - Activity Restrictions/Additional Instructions: As we discussed please follow-up with your primary care provider soon as possible for further evaluation and treatment. If they feel an orthopedic referral is necessary they may place this at that time. We will place you on anti-inflammatory medications to see if this will help with your discomfort. You may also try alternating ice and heat to your shoulder. Stand Alone Forms: Work/School Release Coding Level of Care Code ED Plant Custodian for Chg Fwd Exam Comprehensive
[2021-08-17 11:04] VITALS: BP 149/84; PULSE 67; O2SAT 99
[2021-08-17] MEDS: ketorolac 60 mg/2 mL INJ IM (11:27)
[2021-08-17] MEDS: dexamethasone 10 mg/mL INJ 8 MG IM (11:27)
[2021-08-17 12:16] VITALS: BP 118/83; PULSE 68; O2SAT 98
== END 2021-08-17 12:15 | disposition home or self-care (01) ==
PROVIDERS: Emergency Provider Physician Assistant; PCP Family Medicine
DX: M19.011 Primary osteoarthritis, right shoulder (principal)
CPT/HCPCS: 73030; 96372; 99283; J1100; J1885

== ENCOUNTER 2021-08-23 10:00 | Outpatient (CLI) | payer MEDICARE, MEDICAID, SELFPAY | END 2021-08-23 10:01 | disposition home or self-care (01) | LOC: SLEEP 08-24 13:51 | PROVIDERS: PCP Family Medicine; Visit Provider Internal Medicine Cardiovascular Disease | DX: G47.10 Hypersomnia, unspecified (principal); R53.83 Other fatigue | CPT/HCPCS: G0399 ==

== ENCOUNTER → 2021-09-04 15:14 | Outpatient (BNVA) | payer MEDICARE, MEDICAID, SELFPAY | PROVIDERS: Visit Provider Family Medicine | DX: E11.42 Type 2 diabetes mellitus with diabetic polyneuropathy (principal); E78.5 Hyperlipidemia, unspecified; I10 Essential (primary) hypertension; I25.10 Atherosclerotic heart disease of native coronary artery without angina pectoris; K21.9 Gastro-esophageal reflux disease without esophagitis; E87.6 Hypokalemia | CPT/HCPCS: 80053; 80061; 83036; 83735; 85025 ==

== ENCOUNTER → 2021-09-05 10:59 | Outpatient (BNVA) | payer MEDICARE, MEDICAID, SELFPAY | PROVIDERS: PCP Family Medicine; Visit Provider Internal Medicine Cardiovascular Disease | DX: I25.10 Atherosclerotic heart disease of native coronary artery without angina pectoris (principal); E78.5 Hyperlipidemia, unspecified; I10 Essential (primary) hypertension; E11.9 Type 2 diabetes mellitus without complications; Z79.84 Long term (current) use of oral hypoglycemic drugs | CPT/HCPCS: 99214 ==

== ENCOUNTER → 2021-09-19 14:16 | Outpatient (BNVA) | payer MEDICARE, MEDICAID, SELFPAY | PROVIDERS: PCP Family Medicine; Visit Provider Podiatrist Foot & Ankle Surgery | DX: E11.8 Type 2 diabetes mellitus with unspecified complications (principal); M79.673 Pain in unspecified foot; E11.42 Type 2 diabetes mellitus with diabetic polyneuropathy; L60.3 Nail dystrophy; Z79.84 Long term (current) use of oral hypoglycemic drugs | CPT/HCPCS: 11721 ==

== ENCOUNTER → 2021-09-27 13:07 | Outpatient (BNVA) | payer MEDICARE, MEDICAID, SELFPAY | PROVIDERS: PCP Family Medicine; Visit Provider Orthopaedic Surgery | DX: M67.911 Unspecified disorder of synovium and tendon, right shoulder (principal) | CPT/HCPCS: 99213; J0702; J3490 ==

== ENCOUNTER 2021-10-04 12:44 | Outpatient (RCR) | payer MEDICARE, MEDICAID, SELFPAY | END 2021-10-08 23:59 | disposition home or self-care (01) | LOC: SPT 12:44 | PROVIDERS: PCP Family Medicine; Referring Provider Orthopaedic Surgery; Visit Provider Orthopaedic Surgery | DX: M25.511 Pain in right shoulder (principal) | CPT/HCPCS: 97161 ==

== ENCOUNTER 2021-10-09 06:00 | Outpatient (RCR) | payer MEDICARE, MEDICAID, SELFPAY | END 2021-11-08 23:59 | disposition home or self-care (01) | LOC: SPT 06:00 | PROVIDERS: PCP Family Medicine; Visit Provider Orthopaedic Surgery | DX: M67.813 Other specified disorders of tendon, right shoulder (principal) | CPT/HCPCS: 97110 ==

== ENCOUNTER 2021-11-09 06:00 | Outpatient (RCR) | payer MEDICARE, SELFPAY | END 2021-11-09 23:59 | disposition home or self-care (01) | LOC: SPT 06:00 | PROVIDERS: PCP Family Medicine; Visit Provider Orthopaedic Surgery | DX: M25.511 Pain in right shoulder (principal) | CPT/HCPCS: 97110 ==

== ENCOUNTER → 2021-11-15 09:02 | Outpatient (BNVA) | payer MEDICARE, MEDICAID, SELFPAY | PROVIDERS: PCP Family Medicine; Visit Provider Podiatrist Foot & Ankle Surgery | DX: E11.8 Type 2 diabetes mellitus with unspecified complications (principal); E11.42 Type 2 diabetes mellitus with diabetic polyneuropathy; L60.3 Nail dystrophy; M19.071 Primary osteoarthritis, right ankle and foot; Z79.84 Long term (current) use of oral hypoglycemic drugs | CPT/HCPCS: 73630; 99213; 99214 ==

== ENCOUNTER → 2021-12-20 08:10 | Outpatient (BNVA) | payer MEDICARE, MEDICAID, SELFPAY | PROVIDERS: PCP Family Medicine; Visit Provider Podiatrist Foot & Ankle Surgery | DX: M19.071 Primary osteoarthritis, right ankle and foot (principal); Z79.84 Long term (current) use of oral hypoglycemic drugs; E11.8 Type 2 diabetes mellitus with unspecified complications; E11.42 Type 2 diabetes mellitus with diabetic polyneuropathy; L60.3 Nail dystrophy | CPT/HCPCS: 99213; 99214 ==

== ENCOUNTER 2022-01-26 10:04 | Emergency (ER) | payer MEDICARE, MEDICAID, SELFPAY ==
[2022-01-26 10:18] VITALS: BP 144/83; PULSE 62; RESP 16; TEMP 36.9; O2SAT 97; BMI 36.9
--- NOTE | 2022-01-26 10:25 | XR_ITS ---
WS: [id number] Exam: [place] [id number] Date/Time of Exam: 01/26/2022 10:27 AM Reason For Exam: pain No fracture or dislocation. Articular relationships at the elbow and shoulder appear normal. Normal s oft tissues. XR/[place] [id number] IMPRESSION: 1. No fracture or other significant finding.
--- NOTE | 2022-01-26 10:58 | XR_ITS ---
WS: [id number] Exam: XR shoulder RT min 2V* [id number] Date/Time of Exam: 01/26/2022 10:58 AM Reason For Exam: pain No fracture or dislocation noted. Degenerative change and arthrosis at the AC joint. Spurring of the inferior margin of the acromion and clavicle. Mild soft tissue calcification along the humeral head t hat may indicate calcific tendinitis or bursitis. XR/XR shoulder RT min 2V* [id number] IMPRESSION: 1. Degenerative changes. No fracture or dislocation. 2. Soft tissue calcification along the humeral head that might indicate calcifi c tendinitis or bursitis.
[2022-01-26] MEDS: HYDROcodone-acetaminophen 5-325 mg Tablet 2 TAB PO (11:30)
--- NOTE | 2022-01-26 11:57 | PC.SOCIAL ---
Addendum entered by Claudia Lion 02/08/22 11:41: Patient had a follow up appointment scheduled for 01.31.22 with ortho - patient did attend appointment. Original Note: Ortho Follow-Up Referral sent to [facility] ortho for scheduling. Clinic to contact patient with appt. date/time.
--- NOTE | 2022-02-03 07:13 | ED_ITS ---
HPI - Extremity Problem General: Chief complaint: Extremity Injury, Upper Stated complaint: Right arm weakness Time Seen by Provider: 01/26/22 10:25 Source: patient Mode of arrival: ambulatory History of Present Illness: 66-year-old female presents emergency room clean right shoulder pain unable to flex or AB duct. No known injury or trauma no fall began several days ago has progressively worsened. No previous surgery or injury to that shoulder. MD Complaint: joint pain Onset (ago): day(s) Pain Consistency: constant Location: right and upper extremity (shoulder) Associated symptoms: Deny chest pain, fever(s) or rash Review of Systems Const: Denies: fever(s), chills, body aches, change in appetite, fatigue or malaise ENMT: Denies: throat pain, ear or mastoid pain, nasal discharge or nasal congestion Card: Denies: chest pain, edema, dyspnea on exertion or orthopnea Resp: Denies: dyspnea, productive cough or non-productive cough GI: Denies: abdominal pain, nausea, vomiting, hematemesis, coffee ground emesis, diarrhea, constipation, bloating, hematochezia or melena : Denies: flank pain, difficulty voiding, dysuria, urinary frequency or urinary urgency Skin/Breast: Denies: rash or pruritus PFSH ED PFSH: Medical History Atherosclerosis Coronary artery disease Fibromyalgia GERD (gastroesophageal reflux disease) Hyperlipidemia Hypertension Palpitations Paroxysmal cardiac arrhythmia Surgical History History of left knee replacement Family History Mother Diabetes CAD (coronary artery disease) Sister Cancer Brother Cancer Father CAD (coronary artery disease) Denies family history of Clotting disorder Dementia Chronic kidney disease (CKD) Suicide Anesthesia complication Bleeding disorder Lung disease Stroke Social History Smoking and tobacco status: never smoked Alcohol intake: never Female Reproductive History: Spontaneous abortions: No Physical Exam Const: COMMON NORMALS: no acute distress GENERAL APPEARANCE: cooperative and comfortable ORIENTATION/CONSCIOUSNESS: Yes awake, Yes oriented to person, Yes oriented to place and Yes oriented to time HENMT: COMMON NORMALS: normocephalic, atraumatic and hearing grossly normal bilaterally HEAD & SCALP: normocephalic and atraumatic Resp: COMMON NORMALS: normal respiratory effort, No retractions, No use of accessory muscles and clear to auscultation bilaterally AUSCULTATION: clear to auscultation bilaterally Cardio: COMMON NORMALS: regular rate, regular rhythm and No murmurs present (Cardio) RATE: regular rate RHYTHM: regular rhythm Extremity: OTHER: Right shoulder unable to examine beyond his mild palpation patient would not allow any movement. Able to move at the elbow and wrist without difficulty but any attempt at flexion extension external rotation causes severe pain even light palpation causes severe pain. Neuro: SENSORIUM/ORIENTATION: Yes oriented to person, Yes oriented to place and Yes oriented to time Skin: COMMON NORMALS: no rashes or lesions noted GENERAL SKIN EXAM: no rashes or lesions noted Course Vital Signs: Vital signs: Vital Signs Temperature 98.5 F 01/26/22 10:18 Pulse Rate 62 01/26/22 10:18 Respiratory Rate 16 01/26/22 10:18 Blood Pressure 144/83 01/26/22 10:18 Pulse Oximetry 97 01/26/22 10:18 Oxygen Delivery Me thod 01/26/22 10:18 MDM - Extremity (Nontraumatic) Medical Decision Making X-ray negative will place in a sling refer to Ortho. Anti-inflammatories as needed. No use the right arm until cleared by Ortho. Lab Data Radiology Impressions Humerus X-Ray 01/26/22 10:25 IMPRESSION: 1. No fracture or other significant finding. Shoulder X-Ray 01/26/22 10:58 IMPRESSION: 1. Degenerative changes. No fracture or dislocation. 2. Soft tissue calcification along the humeral head that might indicate calcific tendinitis or bursitis. Discharge Plan Discharge Patient Disposition: Home Clinical Impression: Rotator cuff dysfunction Condition: Stable Prescriptions: New diclofenac sodium 75 mg tablet,delayed release (DR/EC) 75 mg PO Q12H PRN (Reason: pain) Qty: 20 0RF No Action docusate sodium [Colace] 100 mg capsule 100 mg PO DAILY cholecalciferol (vitamin D3) [Vitamin D3] 25 mcg (1,000 unit) capsule 25 mcg PO DAILY Qty: 90 2RF gabapentin 400 mg capsule 400 mg PO BID Qty: 180 1RF metoprolol tartrate 25 mg tablet 25 mg PO BID Qty: 180 1RF potassium chloride 20 mEq tablet,ER particles/crystals 20 meq PO TID Qty: 270 1RF simvastatin 20 mg tablet 20 mg PO DAILY Qty: 90 2RF spironolactone 25 mg tablet 12.5 mg PO DAILY Qty: 90 2RF (DME) diabetic supplies, miscellan. Misc See Rx Instructions .ROUTE .MEDSUPPLY Qty: 100 2RF Rx Instructions: As directed famotidine 20 mg tablet 20 mg PO BID Qty: 180 1RF fluoxetine 20 mg capsule 20 mg PO DAILY Qty: 90 2RF oxybutynin chloride 5 mg tablet 5 mg PO DAILY Qty: 90 1RF (DME) lancets [Accu-Chek Softclix Lancets] Misc See Rx Instructions .ROUTE .COMPLEX Qty: 300 5RF Dose Instruction: TEST BLOOD SUGAR DIRECTED Rx Instructions: TEST BLOOD SUGAR DIRECTED (DME) Accu-Chek Guide test strips Strip See Rx Instructions .ROUTE .COMPLEX Qty: 300 5RF Dose Instruction: TEST BLOOD SUGAR DIRECTED Rx Instructions: TEST BLOOD SUGAR DIRECTED cetirizine 10 mg tablet 10 mg PO DAILY Qty: 90 3RF aspirin 325 mg Tablet 325 mg PO DAILY trazodone 100 mg tablet 100 mg PO DAILY metformin 1,000 mg tablet 1,000 mg PO TID Discharge Orders: Discharge ED (Routine); Ordered 01/26/22 Ordered By: Amrit Santana Referrals: Carl Mead DO [Primary Care Provider] - Discharge Diet: Usual diet Discharge Activity: Resume usual activity Patient Instructions: Opioid Safety, Pain Management Activity Restrictions/Additional Instructions: You were seen today for right shoulder pain. Your x-rays were negative. Suspect you have a injury to the rotator cuff. Wear the shoulder immobilizer except when bathing. Case management will make arrangements for you to have a consultation with the orthopedic clinic. Stand Alone Forms: Work/School Release Coding Level of Care Code ED Learning And Development Associate for Blaise Burks
== END 2022-01-26 11:45 | disposition home or self-care (01) ==
PROVIDERS: Emergency Provider Family Medicine; PCP Family Medicine
DX: S43.421A Sprain of right rotator cuff capsule, initial encounter (principal); X58.XXXA Exposure to other specified factors, initial encounter
CPT/HCPCS: 73030; 73060; 99283

== ENCOUNTER 2022-01-31 15:42 | Outpatient (CLI) | payer MEDICARE, MEDICAID, SELFPAY ==
--- NOTE | 2022-01-31 16:00 | MR_ITS ---
WS: [id number] MRI RIGHT FOOT without CONTRAST. COMPARISON: Radiograph 11/15/2021 Multiplanar, multisequence imaging is performed without contrast. There is a marker placed along the dorsal surface of the foot between the proximal first and second m etatarsals. This corresponds to the area of pain. No marrow edema or fractures are identified. There is no underlying soft tissue mass. The anterior and posterior bands of the Lisfranc ligament are inta ct. The anterior band is being slightly distorted by hypertrophic bone formation from the proximal fi rst metatarsal. There is no associated edema. Small muscles of the foot. Normal signal. There is a small amount of artifact along the plantar surfa ce of the proximal fifth second toe. There may be underlying foreign body. No history of prior surger y to this area. Minimal hypertrophic bone formation from the medial cuneiform is closely associated with the marker p laced in the area of pain. MR/MR foot RT wo con* [id number] IMPRESSION: 1. No osseous or soft tissue abnormality. 2. Lisfranc ligaments are intact. 3. No edema or fluid collection. 4. Minimal hypertrophic bone formation from the medial cuneiform is degenerati ve. This does correspond to the marker placed in the area of pain. This study was submitted for interpretation on 02/08/2022 at 2:11 PM.
== END 2022-01-31 15:43 | disposition home or self-care (01) ==
LOC: RAD 15:43
PROVIDERS: PCP Family Medicine; Visit Provider Podiatrist Foot & Ankle Surgery
DX: M67.919 Unspecified disorder of synovium and tendon, unspecified shoulder (principal)
CPT/HCPCS: 73718; 99213

== ENCOUNTER → 2022-02-08 13:46 | Outpatient (BNVA) | payer MEDICARE, MEDICAID, SELFPAY | PROVIDERS: PCP Family Medicine; Visit Provider Podiatrist Foot & Ankle Surgery | DX: E11.8 Type 2 diabetes mellitus with unspecified complications (principal); E11.42 Type 2 diabetes mellitus with diabetic polyneuropathy; L60.3 Nail dystrophy; M19.071 Primary osteoarthritis, right ankle and foot; Z79.84 Long term (current) use of oral hypoglycemic drugs | CPT/HCPCS: 99213 ==

== ENCOUNTER 2022-02-20 11:43 | Outpatient (CLI) | payer MEDICARE, MEDICAID, SELFPAY ==
--- NOTE | 2022-02-20 11:45 | MR_ITS ---
WS: [id number] MRI RIGHT SHOULDER HISTORY: pain COMPARISON: Radiograph 01/26/2022 TECHNIQUE: Multiplanar sequences of the shoulder joint are submitted. Severe AC joint arthritis. Joint space narrowing with osteophytes and fluid. 5 mm osteophyte encroach es upon the supraspinatus tendon with deformity. There is a moderate amount of fluid in the subacromi al and subdeltoid bursa. Subacromial impingement. No os acromion. Biceps tendon is present within the bicipital groove but there is increased T2 signal suggesting intrasubstance degeneration or even a s plit tear. Small partial insertion site tear supraspinatus. There is extensive fraying along the bursal and katy cular surfaces of the tendon. No tear involving the subscapularis or infraspinatus. There is increase d T2 signal but it appears to be fluid within the joint. Moderate atrophy of the supraspinatus muscle . Irregularity involving the cortical surface of the humeral head with loss of cartilage. Mild narrowin g of the glenohumeral joint. No labral tear identified. MR/MR shoulder RT wo con* [id number] IMPRESSION: 1. Severe AC joint arthritis with osteophyte encroachment upon the supraspinat us tendon. 2. Moderate subacromial impingement. 3. Insertion site tear supraspinatus tendon. There is extensive fraying along both the bursal and articular surfaces of the distal supraspinatus tendon. 4. Moderate supraspinatus atrophy. 5. Biceps tendinopathy.
== END 2022-02-20 11:44 | disposition home or self-care (01) ==
LOC: RAD 11:43
PROVIDERS: PCP Family Medicine; Visit Provider Orthopaedic Surgery
DX: M67.919 Unspecified disorder of synovium and tendon, unspecified shoulder (principal); M13.811 Other specified arthritis, right shoulder
CPT/HCPCS: 73221

== ENCOUNTER → 2022-03-07 10:00 | Outpatient (BNVA) | payer MEDICARE, MEDICAID, SELFPAY | PROVIDERS: PCP Family Medicine; Visit Provider Orthopaedic Surgery | DX: M75.101 Unspecified rotator cuff tear or rupture of right shoulder, not specified as traumatic (principal); M25.811 Other specified joint disorders, right shoulder; M19.011 Primary osteoarthritis, right shoulder | CPT/HCPCS: 99213 ==

== ENCOUNTER → 2022-03-13 10:05 | Outpatient (BNVA) | payer MEDICARE, MEDICAID, SELFPAY | PROVIDERS: PCP Family Medicine; Visit Provider Internal Medicine Cardiovascular Disease | DX: Z01.818 Encounter for other preprocedural examination (principal); I25.10 Atherosclerotic heart disease of native coronary artery without angina pectoris; E78.2 Mixed hyperlipidemia; I10 Essential (primary) hypertension; E11.9 Type 2 diabetes mellitus without complications; Z79.84 Long term (current) use of oral hypoglycemic drugs | CPT/HCPCS: 93005; 99214 ==

== ENCOUNTER 2022-03-22 05:48 | Day surgery (SDC) | payer MEDICARE, MEDICAID, SELFPAY ==
[2022-03-21 11:36] VITALS: BMI 37.5
[2022-03-22] VITALS (9 sets, daily range): BP systolic 137–178; BP diastolic 66–86; PULSE 56–69; RESP 11–18; TEMP 36.2–36.3; O2SAT 93–99
[2022-03-22 06:24] LABS: Glucose Point of Care 118 mg/dL (70-110)
[2022-03-22] MEDS: sodium chloride 0.9% 1,000 ML 30 ML IV (06:30)
[2022-03-22] MEDS: acetaminophen 500 mg Tablet 1000 MG PO (06:31)
--- NOTE | 2022-03-22 07:00 | W.PM.OPSUD ---
Surgery/Procedure H&P Update DATE OF PROCEDURE: March 22, 2022 DATE H&P PERFORMED: 02/27/22 H&P UPDATE INFORMATION: I have reviewed H&P completed within last 30 days PREOP DIAGNOSIS: Rotator cuff tear PLANNED PROCEDURE: Operation Date: 03/22/22 07:00 Proposed Procedures p right rotator cuff repair:88419,M75.01(Right) - Bhargav Chacon MD s Shoulder Arthroscopy(Right) - Bhargav Chacon MD
--- NOTE | 2022-03-22 07:04 | P.ANESASSM_ITS ---
Pre-Anesthetic Assessment Height/Weight: Height 1.57 m Weight 92.986 kg Temp Pulse Resp BP Pulse Ox O2 Del Method 97.1 F L 56 L 18 137/81 97 03/22/22 06:27 03/22/22 06:27 03/22/22 06:27 03/22/22 06:27 03/22/22 06:27 03/22/22 06:27 Preop Diagnosis: Rotator cuff tear Operation Date: 03/22/22 07:00 Proposed Procedures p right rotator cuff repair:59928,M75.01(Right) - Bhargav Chacon MD s Shoulder Arthroscopy(Right) - Bhargav Chacon MD Familial anesthetic complications: None Was Beta Quinn taken within 24 hours: Yes Was Clonidine taken within 24 hours: N/A Last intake: Intake Last Liquid Date 03/21/22 Last Liquid Time 20:00 Last Solid Date 03/21/22 Last Solid Time 20:00 Social No alcohol and No tobacco Exam alert, oriented x 3, clear to auscultation bilaterally and regular rate & rhythm Airway Mallampati: Class III Dentition: chipped (2 bad teeth) CV/HEM Arrythmia (bradycardia), Coronary Artery Disease (mild - medically treated), Hypertension and Palpitations GI Gastroesophageal Reflux Disease Metabolic Diabetes Mellitus, Hyperlipidemia and Morbid Obesity [facility] Fibromyalgia Anesthetic Plan ASA status: 3 Anesthesia: General and Regional (specify below) Risk of > 500 ml blood loss (7ml/kg in children): No Medications/Allergies Home Medications Medication Instructions Recorded Confirmed Last Taken Type aspirin 325 mg tablet 325 mg PO DAILY 09/18/19 03/21/22 03/14/22 History docusate sodium 100 mg capsule 100 mg PO DAILY 07/10/21 03/21/22 03/21/22 History (Colace) cholecalciferol (vitamin D3) 25 25 mcg PO DAILY #90 caps 10/11/21 03/21/22 03/21/22 Rx mcg (1,000 unit) capsule (Vitamin D3) diabetic supplies, miscellan. #100 ea 10/11/21 03/13/22 Unknown Rx famotidine 20 mg tablet 20 mg PO BID #180 tabs 10/11/21 03/21/22 03/21/22 Rx fluoxetine 20 mg capsule 20 mg PO DAILY #90 caps 10/11/21 03/21/22 03/21/22 Rx gabapentin 400 mg capsule 400 mg PO BID #180 caps 10/11/21 03/21/22 03/21/22 Rx metoprolol tartrate 25 mg tablet 25 mg PO BID #180 tabs 10/11/21 03/21/22 03/22/22 Rx potassium chloride 20 mEq 20 meq PO TID #270 tabs 10/11/21 03/21/22 03/21/22 Rx tablet,extended release(part/cryst) simvastatin 20 mg tablet 20 mg PO DAILY #90 tabs 10/11/21 03/21/22 03/21/22 Rx spironolactone 25 mg tablet 12.5 mg PO DAILY #90 tabs 10/11/21 03/21/22 03/21/22 Rx blood sugar diagnostic (Accu-Chek #300 strips 12/26/21 03/13/22 Unknown Rx Guide test strips) lancets (Accu-Chek Softclix #300 ea 12/26/21 03/13/22 Unknown Rx Lancets) oxybutynin chloride 5 mg tablet 5 mg PO DAILY #90 tabs 01/01/22 03/21/22 03/21/22 Rx cetirizine 10 mg tablet 10 mg PO DAILY #90 tabs 01/22/22 03/21/22 03/21/22 Rx diclofenac sodium 75 mg 75 mg PO Q12H PRN pain #20 tabs 01/26/22 03/22/22 03/21/22 Rx tablet,delayed release metformin 1,000 mg tablet 1,000 mg PO TID 01/26/22 03/21/22 03/20/22 History trazodone 100 mg tablet 100 mg PO DAILY 01/26/22 03/21/22 03/21/22 History Allergies Allergy/AdvReac Type Severity Reaction Status Date / Time celecoxib [From Celebrex] Allergy ALGY-Rash Verified 03/21/22 11:29 codeine Allergy ALGY-Rash Verified 03/21/22 11:29 lisinopril Allergy ALGY-Rash Verified 03/21/22 11:29 lorazepam [From Ativan] Allergy ADR-Halluci Verified 03/21/22 11:29 nating naproxen Allergy ALGY-Rash Verified 03/21/22 11:29 nitroglycerin Allergy ALGY-Rash Verified 03/21/22 11:29 oxycodone [From Percodan] Allergy ALGY-Rash Verified 03/21/22 11:29 tramadol [From Ultram] Allergy ALGY-Rash Verified 03/21/22 11:29 Current Medications Generic Name Dose Route Start Last Admin Trade Name Amolq PRN Reason Stop Dose Admin Sodium Chloride 1,000 mls @ 30 mls/hr 03/22/22 06:00 03/22/22 06:30 Sodium Chloride 0.9% IV 03/23/22 05:59 30 mls/hr .Q24H ALESSIO Administration PFSH Anesthesia Medical History Atherosclerosis Coronary artery disease Fibromyalgia GERD (gastroesophageal reflux disease) Hyperlipidemia Hypertension Palpitations Paroxysmal cardiac arrhythmia Surgical History History of left knee replacement Family History Mother Diabetes CAD (coronary artery disease) Sister Cancer Brother Cancer Father CAD (coronary artery disease) Denies family history of Clotting disorder Dementia Chronic kidney disease (CKD) Suicide Anesthesia complication Bleeding disorder Lung disease Stroke Social History Smoking and tobacco status: never smoked Alcohol intake: never Female Reproductive History Spontaneous abortions: No Data Anesthesia Cardiac Studies: Sestamibi Stress Test (Cardiology) 08/15
--- NOTE | 2022-03-22 07:04 | ANES.PROC ---
Anesthesia Procedures Procedure/Date: 03/22/22 interscalene nerve block Procedure Narrative: 50 mcg fentanyl premed given due to lorazepam allergy. time out performed. assisted by dr barrera Nerve Block ^: Nerve Block 1: Main Anesthesia: general anesthesia Time Out Performed: Yes Consent: requested by attending/covering physician, from patient, risks and benefits reviewed and patient agrees to proceed Nerve block location: interscalene Anesthesia monitors applied: pulse oximetry Nerve block position: semi sitting Anesthetic Used: ropivicaine 0.5% and with decadron Amount of anesthesia used (mL): 20 Ultrasound used to: recognize landmarks and visualize and ID interscalene groove Nerve Stimulator Used?: Yes (twitch present a 0.6, not present at 0.3) Interscalene/Femoral BLK: 2 stimuplex 22 g needle used for position and inplane approach, visualize local anesthetic spread and no vascular puncture identified Injection: neg aspiration of heme and paresthesia +/- (no paresthesia) Patient Tolerated Procedure: well and no complications
--- NOTE | 2022-03-22 09:29 | P.OP_ITS ---
Operative Report Date of procedure: March 22, 2022 Pre-op diagnosis: Preop Diagnosis right rotator cuff tear, impingement, osteoarthritis acromioclavicular joint Post-op diagnosis: same Procedure done: Arthrocopic repair rotator cuff, subacromial decompression, distal clavicle excision right shoulder Implants: Brown and Nephew Helicoil 4.5 mm anchors x2 and 5.5 mm anchor x1 Pathology: none sent Surgeon: Bhargav Chacon Anesthesia: General and Nerve Block (Interscalene) Estimated blood loss (mL): 20 Complications: None Findings: The patient had a full-thickness tear of her rotator cuff involving the anterior supraspinatus approximately a centimeter and a half from anterior to posterior with a centimeter of retraction. She had prominent subacromial spurring. Had hypertrophy and degenerative changes of her acromioclavicular joint Condition: stable Disposition: PACU Brief History: The patient is a 66-year-old female who developed atraumatic right shoulder pain that is failed to respond to conservative measures. MRI revealed full-thickness rotator cuff tearing impingement and and a large degenerative acromioclavicular joint. She had clinical tenderness over her distal clavicle festinating distal clavicle excision. She had a tight subacromial space and a decompression was performed to provide more room for rotator cuff repair Procedure: Patient was given interscalene block in holding. She was given 2 g of Ancef and taken to the operating room. He was given a general anesthesia and positioned in the lateral position with the right shoulder exposed. He was prepped and draped in the lateral position with the right arm in 15 pounds of traction. A timeout was performed. The posterior portal was made 2 cm inferior medial to the posterior corner of the acromion. The scope cannula and trocar were driven into the glenohumeral joint. Anterior working portal was made in the rotator interval. The diagnostic portion arthroscopy was performed. She was noted to have a previous rupture of the long head of her biceps tendon. The full-thickness tearing of the rotator cuff was encountered. Really no significant humeral head or glenoid chondromalacia was noted. The scope was then moved to the subacromial spac in the 8 mm cannula placed through the anterior portal. A lateral working portal was localized with a scalpel blade and a 8 mm cannula placed there as well. Abundant bursal tissue was removed revealing prominent anterior curvature to the acromion. A 5 5 acromion has introduced and approximately 5 mm of anterior and inferior acromion were removed. Attention was then focused on the degenerative symptomatic distal clavicle. Working through the anterior portal the distal clavicle was outlined. An acromionizer was introduced and approximately 8 mm of distal clavicle were removed. Hemostasis provided with the Brown and Nephew Werewolf cautery. Final attention was focused on the rotator cuff. The tear actually consisted of a fairly good quality tendon and the tendon could be mobilized laterally with a relative ease. The footprint was debrided with an incisor shaver. Along the medial edge of the footprint a Brown and Nephew Helicoil 4.5 mm anchor was placed and using the Brown and Nephew FirstPass suture passer the 2 tape sutures were passed through the cuff approximately a centimeter from the edge of the tear. These were secured drawing the medial cuff to bone. Next a single Brown and Nephew Helicoil 4.5 anchor was placed in the anterior lateral position. Bone quality was marginal but the anchor seemed sufficiently secure. 1 end of tape was passed through that anterior edge and and that secured drawing the anterior lateral free edge down to bone. A second 4.5 mm an chor was placed anterior laterally with poor purchase with the anchor pulling out of a bone. A Brown and Nephew Helicoil 5.5 mm anchor was placed in a more lateral position with a better purchase. The tape was then passed through the anterior edge of the rotator cuff and secured drawing that edge down to bone. At the scope equipment was removed. Portals were closed with 3-0 Prolene. Sterile 4 x 4's ABD pads and a Medipore dressing were applied. The patient was placed in abduction pillow and taken recovery room in stable condition.
--- NOTE | 2022-03-22 12:52 | ANE.PACU2 ---
Inpatient post-anesthesia follow up: Airway intact: Yes Vital signs: Temperature 97.3 F Pulse Rate 62 Respiratory Rate 16 Blood Pressure 168/86 Pulse Oximetry 94 Oxygen Delivery Me thod Room Air Oxygen Flow Rate 1 Fraction of Inspir ed Oxygen Hydration adequate: Yes Nausea and vomiting: No Pain level: 1 Mental status: Baseline
== END 2022-03-22 12:00 | disposition home or self-care (01) ==
PROVIDERS: PCP Family Medicine; Visit Provider Orthopaedic Surgery
PROC: (CPT 23120; principal; 2022-03-22 07:00)
PROC: (CPT 29805; 2022-03-22 07:00)
DX: M75.101 Unspecified rotator cuff tear or rupture of right shoulder, not specified as traumatic (principal); M25.811 Other specified joint disorders, right shoulder; M19.011 Primary osteoarthritis, right shoulder; I25.10 Atherosclerotic heart disease of native coronary artery without angina pectoris; I10 Essential (primary) hypertension; K21.9 Gastro-esophageal reflux disease without esophagitis; E11.9 Type 2 diabetes mellitus without complications; E78.5 Hyperlipidemia, unspecified; E66.01 Morbid (severe) obesity due to excess calories; Z68.37 Body mass index [BMI] 37.0-37.9, adult; M79.7 Fibromyalgia; Z79.82 Long term (current) use of aspirin; Z79.84 Long term (current) use of oral hypoglycemic drugs
CPT/HCPCS: 23120; 29826; 29827; 36416; 82962; C1713; J1100; J2370; J2405; J2704; J2710; J2795; J3010; J3490; J7030

== ENCOUNTER → 2022-04-03 07:59 | Outpatient (BNVA) | payer MEDICARE, MEDICAID, SELFPAY | PROVIDERS: PCP Family Medicine; Visit Provider Orthopaedic Surgery | DX: Z98.890 Other specified postprocedural states (principal) | CPT/HCPCS: 99024 ==

== ENCOUNTER → 2022-04-09 14:47 | Outpatient (BNVA) | payer MEDICARE, MEDICAID, SELFPAY | PROVIDERS: PCP Family Medicine; Visit Provider Family Medicine | DX: E78.2 Mixed hyperlipidemia (principal); R79.89 Other specified abnormal findings of blood chemistry; F32.9 Major depressive disorder, single episode, unspecified; E87.6 Hypokalemia; E11.42 Type 2 diabetes mellitus with diabetic polyneuropathy; E55.9 Vitamin D deficiency, unspecified | CPT/HCPCS: 80053; 80061; 83036; 83735; 85025 ==

== ENCOUNTER 2022-04-13 08:33 | Outpatient (RCR) | payer MEDICARE, MEDICAID, SELFPAY | END 2022-05-08 23:59 | disposition home or self-care (01) | LOC: SPT 08:33 | PROVIDERS: PCP Family Medicine; Visit Provider Orthopaedic Surgery | DX: Z47.89 Encounter for other orthopedic aftercare (principal); M25.511 Pain in right shoulder; M25.611 Stiffness of right shoulder, not elsewhere classified | CPT/HCPCS: 97140; 97150; 97161; 97530 ==

== ENCOUNTER → 2022-04-25 09:22 | Outpatient (BNVA) | payer MEDICARE, MEDICAID, SELFPAY | PROVIDERS: PCP Family Medicine; Visit Provider Orthopaedic Surgery | DX: Z98.890 Other specified postprocedural states (principal) | CPT/HCPCS: 99024 ==

== ENCOUNTER 2022-05-09 06:00 | Outpatient (RCR) | payer MEDICARE, MEDICAID, SELFPAY | END 2022-06-08 23:59 | disposition home or self-care (01) | LOC: SPT 06:00 | PROVIDERS: PCP Family Medicine; Visit Provider Orthopaedic Surgery | DX: Z47.89 Encounter for other orthopedic aftercare (principal) | CPT/HCPCS: 97110; 97140; 97530 ==

== ENCOUNTER → 2022-05-16 10:12 | Outpatient (BNVA) | payer MEDICARE, MEDICAID, SELFPAY | PROVIDERS: PCP Family Medicine; Visit Provider Podiatrist Foot & Ankle Surgery | DX: E11.42 Type 2 diabetes mellitus with diabetic polyneuropathy (principal); L60.3 Nail dystrophy; Z79.84 Long term (current) use of oral hypoglycemic drugs | CPT/HCPCS: 11721 ==

== ENCOUNTER → 2022-05-22 09:08 | Outpatient (BNVA) | payer MEDICARE, MEDICAID, SELFPAY | PROVIDERS: PCP Family Medicine; Visit Provider Orthopaedic Surgery | DX: Z47.89 Encounter for other orthopedic aftercare (principal) | CPT/HCPCS: 99024 ==

== ENCOUNTER 2022-06-06 08:52 | Outpatient (CLI) | payer MEDICARE, MEDICAID, SELFPAY ==
--- NOTE | 2022-06-06 09:00 | MM_ITS ---
WS: [id number] VIEWS: MLO and CC views both breasts. 3D digital tomosynthesis is also included in this exam. Comparison made with prior exam of 01/01/2013, 01/14/2014, 01/06/2016, 03/29/2017, 06/25/2018, 03/20/2021 .. Findings: A small focus of new punctate grouped microcalcifications noted in the upper outer quadrant of the le ft breast at the mid depth. No associated mass or architectural distortion. No new finding in the rig ht breast. Magnification compression spot imaging of the left breast in the CC, MLO and 90 degree la teral projections would be recommended for further workup. The breasts are fatty. MM/[place] [id number] Impression: BI-RADS: 0-Incomplete: Need additional imaging evaluation FOLLOW-UP: See Report This mammogram was also analyzed by the Computer Aided Detection System R2 Imag e Account Resolution Specialist.
== END 2022-06-06 08:53 | disposition home or self-care (01) ==
PROVIDERS: PCP Family Medicine; Visit Provider Family Medicine
DX: Z12.31 Encounter for screening mammogram for malignant neoplasm of breast (principal)
CPT/HCPCS: 77063; 77067

== ENCOUNTER → 2022-06-19 09:05 | Outpatient (BNVA) | payer MEDICARE, MEDICAID, SELFPAY | PROVIDERS: PCP Family Medicine; Visit Provider Orthopaedic Surgery | DX: Z98.890 Other specified postprocedural states (principal) | CPT/HCPCS: 99024 ==

== ENCOUNTER 2022-06-21 08:38 | Outpatient (CLI) | payer MEDICARE, MEDICAID, SELFPAY ==
--- NOTE | 2022-06-21 08:52 | MM_ITS ---
WS: [id number] LEFT 3D TOMOSYNTHESIS DIGITAL MAMMOGRAPHY WITH CAD CLINICAL INFORMATION: calcification on left breast HISTORY: Calcifications LEFT breast. COMPARISON: June 06, 2022 TECHNIQUE: 3 views of the left breast were obtained. FINDINGS: Scattered fibroglandular densities of the left breast. Spot magnification views again demonstrate clu stered calcifications upper outer LEFT breast with a punctate appearance. These are probably benign a nd recommend 6 month follow-up to confirm stability. . MM/[place] [id number] IMPRESSION: BI-RADS: 3-Probably Benign FOLLOW UP: 6 Month Follow-up Recommend 6 month follow-up LEFT breast diagnostic mammography with spot magnif ication views of the calcifications
== END 2022-06-21 08:39 | disposition home or self-care (01) ==
LOC: RAD 08:43
PROVIDERS: PCP Family Medicine; Visit Provider Family Medicine
DX: R92.1 Mammographic calcification found on diagnostic imaging of breast (principal)
CPT/HCPCS: 77061; G0279

== ENCOUNTER 2022-07-09 08:19 | Outpatient (RCR) | payer MEDICARE, MEDICAID, SELFPAY ==
--- NOTE | 2022-07-09 08:33 | MR_ITS ---
WS: [id number] EXAMINATION: MR shoulder RT wo con* [id number] ORDER DATE: 07/09/2022 8:40 AM COMPARISON: MRI February 20, 2022 HISTORY: S/P R ROTATOR CUFF REPAIR/PAIN CONTRAST: None. TECHNIQUE: Axial T2 STAR, coronal proton density fat sat, sagittal T2 fat sat, sagittal proton densit y fat sat, axial proton density fat sat, coronal T2 fat sat, and coronal T1 performed. After contrast , axial T1 fat sat, coronal T1 fat sat, and sagittal T1 fat sat were performed. FINDINGS: Interval postoperative changes rotator cuff repair. Postoperative changes AC joint with resection of the distal clavicle appears new from previous. Associated subacromial and subdeltoid fluid. Subacromi al space has been decompressed. Distal supraspinatus tendon appears improved compared to previous wit h intact distal tendon. Tendinopathy with a small amount of fluid in the distal supraspinatus. Chronic atrophy of the distal supraspinatus. Fluid and edema involving the deltoid muscle laterally may be postoperative. Normal in fraspinatus. Normal teres minor. Chronic thinning of the subscapularis appears similar to previous. B iceps tendon is difficult to visualize in the bicipital groove today due to postoperative changes Fraying of the glenoid labrum. Some images degraded due to motion artifact. MR/MR shoulder RT wo con* [id number] IMPRESSION: 1. Moderate amount of fluid in the AC joint with resection distal clavicle pos toperative changes the AC joint with from previous. Subacromial subdeltoid flui d. 2. Fluid and edema involving the deltoid muscle laterally at the level of the humeral head may be postoperative. 3. Distal supraspinatus tendon appears intact with chronic atrophy. This is im proved in appearance compared to previous. 4. Rotator cuff is otherwise intact. 5. Biceps tendon within the proximal bicipital groove difficult to visualize d ue to artifact from surgery and rotator cuff anchors.
== END 2022-08-08 23:59 | disposition home or self-care (01) ==
LOC: SPT 08:19
PROVIDERS: PCP Family Medicine; Visit Provider Orthopaedic Surgery
DX: Z47.89 Encounter for other orthopedic aftercare (principal)
CPT/HCPCS: 73221; 97110

== ENCOUNTER → 2022-07-12 11:40 | Outpatient (BNVA) | payer MEDICARE, MEDICAID, SELFPAY | PROVIDERS: PCP Family Medicine; Visit Provider Nurse Practitioner | DX: M25.512 Pain in left shoulder (principal) | CPT/HCPCS: 73030 ==

== ENCOUNTER → 2022-07-17 14:25 | Outpatient (BNVA) | payer MEDICARE, MEDICAID, SELFPAY | PROVIDERS: PCP Family Medicine; Visit Provider Nurse Practitioner Family | DX: M67.912 Unspecified disorder of synovium and tendon, left shoulder (principal) | CPT/HCPCS: 99214 ==

== ENCOUNTER 2022-08-02 10:58 | Outpatient (CLI) | payer MEDICARE, MEDICAID, SELFPAY ==
--- NOTE | 2022-08-02 11:00 | MR_ITS ---
WS: [id number] MRI LEFT SHOULDER HISTORY: shoulder pain COMPARISON: LEFT shoulder radiograph 07/12/2022 TECHNIQUE: Multiplanar sequences of the shoulder joint are submitted. Technically limited quality examination due to significant motion artifact. Severe AC joint arthritis. Fluid through the AC ligament with encroachment upon the myotendinous inse rtion of the supraspinatus. Moderate subacromial and subdeltoid bursal distention. Biceps tendon appe ars abnormal but detail is limited. No os acromion. Fluid gap distal supraspinatus tendon. The tendon is retracted to the superior humeral head. Addition al increased T2 signal in the myotendinous location of the supraspinatus at the level of the AC joint where there is encroachment. Suspect focal injury to the supraspinatus myotendinous insertion. Moder ate atrophy of the supraspinatus muscle. Tendinopathy distal subscapularis tendon. Infraspinatus tend on with mild tendinopathy. No full-thickness tear identified. Small joint effusion surrounding the humeral head. No marrow edema. Intrasubstance fraying involving the labrum but no tear identified. Limited visualization of the labrum. MR/MR shoulder LT wo con* [id number] IMPRESSION: 1. Quality is limited by motion artifact. 2. Complete tear distal supraspinatus tendon with retraction to the superior h umeral head. Moderate atrophy supraspinatus muscle. 3. Additional supraspinatus myotendinous edema and injury at the level of the AC joint encroachment. 4. Severe AC joint arthritis with osteophytes encroaching upon the myotendinou s portion of the supraspinatus. 5. Poor visualization of the biceps tendon and the labrum.
== END 2022-08-02 10:59 ==
LOC: RAD 10:58
PROVIDERS: PCP Family Medicine; Visit Provider Nurse Practitioner Family
DX: M67.912 Unspecified disorder of synovium and tendon, left shoulder (principal)
CPT/HCPCS: 73221; 99214

== ENCOUNTER → 2022-08-13 09:53 | Outpatient (BNVA) | payer MEDICARE, MEDICAID, SELFPAY | PROVIDERS: PCP Family Medicine; Visit Provider Nurse Practitioner Family | DX: I25.10 Atherosclerotic heart disease of native coronary artery without angina pectoris (principal); I10 Essential (primary) hypertension; R07.9 Chest pain, unspecified; R00.1 Bradycardia, unspecified | CPT/HCPCS: 93005; 93225; 99214 ==

== ENCOUNTER 2022-08-13 12:01 | Outpatient (RCR) | payer MEDICARE, MEDICAID, SELFPAY | END 2022-09-07 23:59 | disposition home or self-care (01) | LOC: SPT 12:01 | PROVIDERS: PCP Family Medicine; Visit Provider Orthopaedic Surgery | DX: Z47.89 Encounter for other orthopedic aftercare (principal) | CPT/HCPCS: 97110 ==

== ENCOUNTER → 2022-08-14 15:37 | Outpatient (BNVA) | payer MEDICARE, MEDICAID, SELFPAY | PROVIDERS: PCP Family Medicine; Visit Provider Orthopaedic Surgery | DX: M75.102 Unspecified rotator cuff tear or rupture of left shoulder, not specified as traumatic (principal) | CPT/HCPCS: 99213 ==

== ENCOUNTER 2022-08-21 08:35 | Outpatient (CLI) | payer MEDICARE, MEDICAID, SELFPAY ==
--- NOTE | 2022-08-21 | ECG_ITS ---
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 Interpretive Statements NAME OF STUDY: LEXISCAN SESTAMIBI STRESS TEST INDICATION: [Chest Pain] Procedure: At the baseline, the blood pressure was 163/83 mmHg with a heart rate of 50 bpm. The electrocardiogram showed sinus bradycardia, normal axis with normal ST and T's. The Lexiscan was infused over a period of 20 seconds. A total of 0.4 mg of Lexiscan was infused. The stress phase was continued for a total of 5 minutes. Heart rate was at the end of stress phase was 85 bpm and a blood pressure of 142/88 mmHg. The EKG at the peak infusion revealed normal sinus rhythm with no significant ST-T wave changes. Sestamibi was injected 20 seconds after the Lexiscan infusion. Blood pressure at the end of recovery phase was 145/82 mmHg with a heart rate of 88 bpm. Conclusion: 1. Normal EKG response to Lexiscan infusion 2. No Lexiscan induced chest pain or cardiac arrhythmia. 3. Normal blood pressure and heart rate response. 4. Sestamibi/sestamibi perfusion scan pending; see separate report. Electronically Signed On 08-31-2022 15:11:25 CDT by Geovany Chen M.D. [id number]
[2022-08-21 08:54] VITALS: BMI 39.1
--- NOTE | 2022-08-21 08:54 | NMCV_ITS ---
NM bienvenido perf SPECT r/s* [id number] Kellie Cash Age: 66 Gender: F : 1955 Exam Date: 08/21/2022 10:06 Ordering Phys: Cora Delgado Technologist: JOSE A Hodge Exam Location: [facility] Indications: CHEST PAIN STRESS TEST Please [facility] for [facility] IMAGE PROTOCOL Rest/Stress 1 Lexiscan Day Radiopharmaceutical Dose (mCi) Administration Site Administered by Rest: Tc-99m 10.5 IV Ellis Hernandez, [employer] SUPER[employer]OR Sestamibi Stress:Tc-99m 32.2 IV JOSE A Hodge Sestamitres Rest: 21-Aug-2022 60 Discovery 630 Stress: 21-Aug-2022 30 Discovery 630 0.4mg Lexiscan. Supine position only as patient was unable to lay prone. SPECT RESULTS Technical Quality: Good Raw Data Analysis: Breast attenuation Image Corrections: No attenuation or motion correction applied Summed Stress Score: 1 Summed Rest Score: 3 Summed Difference Score: 0 PERFUSION FINDINGS SPECT images demonstrate homogeneous tracer distribution throughout the myocardium. FUNCTIONAL RESULTS (calculated via Gated SPECT) Stress Image LV EF (%): 76 Stress EDV (mL):78 TID: 0.79 Stress ESV (mL):19 FUNCTIONAL FINDINGS: There is normal left ventricular systolic function. IMPRESSIONS 1. Normal myocardial perfusion imaging with no evidence of ischemia 2. LV systolic function is normal Geovany Chen MD (Electronically Signed) Final Date: 23 August 2022 15:17 S
[2022-08-21] MEDS: regadenoson 0.4 Mg/5 ml Syringe IVP (11:27)
[2022-08-21 11:39] VITALS: BP 148/82; PULSE 82
== END 2022-08-21 08:36 | disposition home or self-care (01) ==
LOC: CDL 08:37
PROVIDERS: PCP Family Medicine; Visit Provider Nurse Practitioner Family
DX: R07.9 Chest pain, unspecified (principal); I20.9 Angina pectoris, unspecified
CPT/HCPCS: 36415; 78452; 93017; 96374; A9500; J2785

== ENCOUNTER 2022-08-23 05:38 | Day surgery (SDC) | payer MEDICARE, MEDICAID, SELFPAY ==
[2022-08-22 14:55] VITALS: BMI 39.6
[2022-08-23] VITALS (9 sets, daily range): BP systolic 117–162; BP diastolic 86–117; PULSE 57–89; RESP 16–18; TEMP 36.1–36.3; O2SAT 92–100
[2022-08-23 06:19] LABS: Glucose Point of Care 128 mg/dL (70-110)
[2022-08-23] MEDS: sodium chloride 0.9% 1,000 ML 30 ML IV (06:19)
[2022-08-23] MEDS: gabapentin 300 mg Capsule PO (06:19)
[2022-08-23] MEDS: acetaminophen 500 mg Tablet 1000 MG PO (06:19)
--- NOTE | 2022-08-23 07:01 | W.PM.OPSUD ---
Surgery/Procedure H&P Update DATE OF PROCEDURE: August 23, 2022 DATE H&P PERFORMED: 08/14/22 H&P UPDATE INFORMATION: I have reviewed H&P completed within last 30 days PREOP DIAGNOSIS: Left rotator cuff tear PLANNED PROCEDURE: Operation Date: 08/23/22 07:00 Proposed Procedures p [arthroscopic left rotator cuff repair/ 45673], M75.102(Left) - Bhargav Chacon MD
[2022-08-23] MEDS: ceFAZolin 2,000 MG in sodium chloride 0.9% (plus) 50 ML 100 MG IV (07:12)
[2022-08-23] MEDS: EPINEPHrine 1 mg/mL INJ 2 MG XX (07:59)
--- NOTE | 2022-08-23 08:55 | PM.OP ---
Operative Report Date of procedure: August 23, 2022 Pre-op diagnosis: Preop Diagnosis Left rotator cuff tear Post-op diagnosis: same (Left rotator cuff tear, left shoulder impingement) Implants: Brown and Nephew Helicoil 4.5 mm anchor with tape x2, Brown and Nephew Helicoil 5.0 mm knotless x2 Pathology: none sent Surgeon: Bhargav Chacon Anesthesia: General and Nerve Block (Interscalene) Estimated blood loss (mL): 25 Findings: Kellie had a full-thickness tear of her rotator cuff extending from the bicipital groove posteriorly approximately 2 cm with a centimeter and a half to tendinous retraction. Tendon quality was excellent. Her bone quality was compromised but felt to be satisfactory for anchor fixation with modification of technique. She had spurring of the leading edge of her acromion. She had a previous rupture of her biceps tendon. Condition: stable Disposition: PACU Brief History: The patient is a 66-year-old female with a 1 month history of traumatic onset left shoulder pain that began when she attempted to pull a door open with her left arm. An MRI revealed a full-thickness rotator cuff tearing. As this was a traumatic tear with persistent pain rotator cuff repair was chosen to improve pain and function Procedure: Kellie was taken to the operating room after an interscalene block was provided. She was given 2 g of Ancef and a general anesthesia. She was positioned in the lateral position with her left shoulder exposed. It was prepped and draped in the usual fashion. A timeout was performed. The shoulder was entered through a posterior portal made 2 cm inferior medial to the posterior corner of the acromion. A scope cannula and trocar were driven into the glenohumeral joint. An 8 mm inflow cannula was placed anteriorly. The diagnostic portion of the glenohumeral arthroscopy was performed. The biceps tendon was absent. The tearing of the rotator cuff was identified. The humeral head and glenoid were free of chondromalacia. The scope was then moved to the subacromial space and a anterior and lateral working portal fashion to. Initially bursal tissue was removed using the Brown and Nephew Werewolf probe. The rotator cuff tear was outlined. The leading edge of the acromion was outlined. Through the lateral portal a 5.5 mm acromionizer was introduced and approximately 5 mm of anterior and inferior acromion removed making room for the repair and eliminating any bursal compressive force on the cuff. Next attention was paid to the rotator cuff. From her previous surgery her bone quality was known to be compromised and efforts were made to improve as much subchondral bone at the rotator cuff insertion as possible. The greater tuberosity was lightly debrided at the rotator cuff insertion exposing punctate areas of bleeding. Through a lateral stab wound a Brown and Nephew Helicoil 4.5 mm anchor was placed in the posterior medial footprint. A Brown and NephX-[employer] Imaging FirstPass suture passer was used to shuttle each limb of tape through the rotator cuff approximately 8 mm from the edge with a 2 sutures 5 mm apart. A second anchor was placed in the anterior medial rotator cuff footprint and the sutures passed in identical fashion. The sutures from each anchor were secured with a sliding Hutchinson knot and alternating half hitches. Next 1 suture from each anchor was brought through the lateral cannula and passed through a Brown and Nephew Helicoil knotless anchor. The posterior and lateral of the tuberosity were penetrated superficially with an awl and the anchor placed drawing the lateral cuff to bone. A second identical anchor was placed anterior laterally passing the 2 remaining sutures through that anchor further reinforcing the lateral cuff repair. Intraoperative images showed excellent compression of the cuff to the tuberosity. Arthroscopic [place] was removed. Portals were closed with 3-0 Prolene. Sterile dressings were applied. The patient was extubated and taken to recovery room in stable condition.
[2022-08-23] MEDS: HYDROcodone-acetaminophen 7.5-325 mg Tablet 1 TAB PO (10:22)
--- NOTE | 2022-08-23 11:45 | ANES.PREANE2 ---
Pre-Anesthetic Assessment Height/Weight: Height 1.57 m Weight 98.43 kg Temp Pulse Resp BP Pulse Ox O2 Del Method O2 Flow Rate 97.0 F L 71 18 135/86 93 Room Air 8 08/23/22 09:55 08/23/22 10:38 08/23/22 10:38 08/23/22 10:38 08/23/22 10:38 08/23/22 10:38 08/23/22 09:26 Preop Diagnosis: Left rotator cuff tear Operation Date: 08/23/22 07:00 Proposed Procedures p [arthroscopic left rotator cuff repair/ 36111], M75.102(Left) - Bhargav Chacon MD Familial anesthetic complications: none Was Beta Quinn taken within 24 hours: Yes Was Clonidine taken within 24 hours: N/A Last intake: Intake Last Liquid Date 08/22/22 Last Liquid Time 21:00 Last Solid Date 08/22/22 Last Solid Time 19:00 Social Tobacco and No alcohol Exam alert, oriented x 3 and regular rate & rhythm Airway Submandibular: within normal limits Cervical ROM: within normal limits Mallampati: Class II Dentition: false Pulmonary Chronic Obstructive Pulmonary Disease CV/HEM Coronary Artery Disease and Hypertension GI Gastroesophageal Reflux Disease Metabolic Diabetes Mellitus, Hyperlipidemia and Morbid Obesity Neuropsych Anxiety and Depression Anesthetic Plan ASA status: 3 Anesthesia: General and Regional (specify below) (Left interscalene blk) Medications/Allergies Home Medications Medication Instructions Recorded Confirmed Last Taken Type aspirin 325 mg tablet 325 mg PO DAILY 09/18/19 08/23/22 08/16/22 History docusate sodium 100 mg capsule 100 mg PO DAILY 07/10/21 08/23/22 08/22/22 History (Colace) cholecalciferol (vitamin D3) 25 25 mcg PO DAILY #90 caps 10/11/21 08/23/22 08/22/22 Rx mcg (1,000 unit) capsule (Vitamin D3) diabetic supplies, [employer]. #100 ea 10/11/21 08/22/22 Unknown Rx spironolactone 25 mg tablet 12.5 mg PO DAILY #90 tabs 10/11/21 08/23/22 08/22/22 Rx blood sugar diagnostic (Accu-Chek #300 strips 12/26/21 08/22/22 Unknown Rx Guide test strips) lancets (Accu-Chek Softclix #300 ea 12/26/21 08/22/22 Unknown Rx Lancets) cetirizine 10 mg tablet 10 mg PO DAILY #90 tabs 01/22/22 08/23/22 08/22/22 Rx diclofenac sodium 75 mg 75 mg PO Q12H PRN pain #20 tabs 01/26/22 08/23/22 08/22/22 Rx tablet,delayed release gabapentin 400 mg capsule 400 mg PO BID #180 caps 04/09/22 08/23/22 08/22/22 Rx famotidine 20 mg tablet 20 mg PO BID 08/22/22 08/23/22 08/22/22 History fluoxetine 20 mg capsule 20 mg PO DAILY 08/22/22 08/23/22 08/22/22 History metformin 1,000 mg tablet 1,000 mg PO BID 08/22/22 08/23/22 08/22/22 History metoprolol tartrate 25 mg tablet 25 mg PO BID 08/22/22 08/23/22 08/23/22 History oxybutynin chloride 5 mg tablet 5 mg PO DAILY 08/22/22 08/23/22 08/22/22 History potassium chloride 20 mEq 20 meq PO TID 08/22/22 08/23/22 08/22/22 History tablet,extended release(part/cryst) simvastatin 20 mg tablet 20 mg PO DAILY 08/22/22 08/23/22 08/22/22 History trazodone 100 mg tablet 100 mg PO DAILY 08/22/22 08/23/22 08/22/22 History hydrocodone 7.5 mg-acetaminophen 1 tab PO Q6H PRN pain 7 days #30 08/23/22 Unknown Rx 325 mg tablet tabs Allergies Allergy/AdvReac Type Severity Reaction Status Date / Time celecoxib [From Celebrex] Allergy ALGY-Rash Verified 08/23/22 05:55 codeine Allergy ALGY-Rash Verified 08/23/22 05:55 lisinopril Allergy ALGY-Rash Verified 08/23/22 05:55 lorazepam [From Ativan] Allergy ADR-Halluci Verified 08/23/22 05:55 nating naproxen Allergy ALGY-Rash Verified 08/23/22 05:55 nitroglycerin Allergy ALGY-Rash Verified 08/23/22 05:55 oxycodone [From Percodan] Allergy ALGY-Rash Verified 08/23/22 05:55 tramadol [From Ultram] Allergy ALGY-Rash Verified 08/23/22 05:55 [facility] Anesthesia Medical History Atherosclerosis Chest pain Coronary artery disease Fibromyalgia GERD (gastroesophageal reflux disease) Hyperlipidemia Hypertension Palpitations Paroxysmal cardiac arrhythmia Surgical History History of left knee replacement Family History Mother Diabetes CAD (coronary artery disease) Sister Cancer Brother Cancer Father CAD (coronary artery disease) Denies family history of Clotting disorder Dementia Chronic kidney disease (CKD) Suicide Anesthesia complication Bleeding disorder Lung disease Stroke Social History Smoking and tobacco status: never smoked Alcohol intake: never Substance/Drug Use: never Female Reproductive History Spontaneous abortions: No Data Anesthesia Cardiac Studies: Sestamibi Stress Test (Cardiology) 08/21/22 Anesthesia Procedures Nerve Block Nerve Block 1: Main Anesthesia: general anesthesia Time Out Performed: Yes Consent: requested by attending/covering physician, from patient, risks and benefits reviewed and patient agrees to proceed Nerve block location: interscalene (left) Anesthesia monitors applied: pulse oximetry, EKG, BP cuff and oxygen Nerve block position: semi sitting Anesthetic Used: ropivicaine 0.5% Amount of anesthesia used (mL): 30 Ultrasound used to: recognize landmarks and visualize and ID brachial plexus Nerve Stimulator Used?: No Interscalene/Femoral BLK: 2 stimuplex 22 g needle used for position and inplane approach Injection: neg aspiration of heme Patient Tolerated Procedure: well Complications: none
--- NOTE | 2022-08-23 15:38 | ANE.PACU2 ---
Inpatient post-anesthesia follow up: Airway intact: Yes Vital signs: Temperature 97.0 F Pulse Rate 71 Respiratory Rate 18 Blood Pressure 135/86 Pulse Oximetry 93 Oxygen Delivery Me thod Room Air Oxygen Flow Rate 8 Fraction of Inspir ed Oxygen Hydration adequate: Yes Nausea and vomiting: No Pain level: 1 Mental status: Baseline
== END 2022-08-23 10:50 | disposition home or self-care (01) ==
PROVIDERS: PCP Family Medicine; Visit Provider Orthopaedic Surgery
PROC: 0LQ24ZZ Repair Left Shoulder Tendon, Percutaneous Endoscopic Approach (ICD-10-PCS; CPT 29827; principal; 2022-08-23 07:00)
DX: M75.122 Complete rotator cuff tear or rupture of left shoulder, not specified as traumatic (principal); M75.42 Impingement syndrome of left shoulder; J44.9 Chronic obstructive pulmonary disease, unspecified; I25.10 Atherosclerotic heart disease of native coronary artery without angina pectoris; I10 Essential (primary) hypertension; K21.9 Gastro-esophageal reflux disease without esophagitis; E11.9 Type 2 diabetes mellitus without complications; E78.5 Hyperlipidemia, unspecified; E66.01 Morbid (severe) obesity due to excess calories; Z68.39 Body mass index [BMI] 39.0-39.9, adult; Z79.84 Long term (current) use of oral hypoglycemic drugs; Z79.82 Long term (current) use of aspirin
CPT/HCPCS: 29827; 36416; 82962; C1713; J0171; J0690; J1100; J2250; J2370; J2405; J2704; J2795; J3010; J3490; J7030

== ENCOUNTER → 2022-08-30 08:38 | Outpatient (BNVA) | payer MEDICARE, MEDICAID, SELFPAY | PROVIDERS: PCP Family Medicine; Visit Provider Podiatrist Foot & Ankle Surgery | DX: E11.8 Type 2 diabetes mellitus with unspecified complications (principal); E11.42 Type 2 diabetes mellitus with diabetic polyneuropathy; L60.3 Nail dystrophy; M19.079 Primary osteoarthritis, unspecified ankle and foot; Z79.84 Long term (current) use of oral hypoglycemic drugs | CPT/HCPCS: 11721 ==

== ENCOUNTER → 2022-09-05 09:55 | Outpatient (BNVA) | payer MEDICARE, MEDICAID, SELFPAY | PROVIDERS: PCP Family Medicine; Visit Provider Nurse Practitioner Family | DX: Z98.890 Other specified postprocedural states (principal) | CPT/HCPCS: 99024 ==

== ENCOUNTER 2022-09-08 06:00 | Outpatient (RCR) | payer MEDICARE, MEDICAID, SELFPAY | END 2022-10-08 23:59 | disposition home or self-care (01) | LOC: SPT 06:00 | PROVIDERS: PCP Family Medicine; Visit Provider Orthopaedic Surgery | DX: Z47.89 Encounter for other orthopedic aftercare (principal) | CPT/HCPCS: 97110 ==

== ENCOUNTER → 2022-09-17 08:43 | Outpatient (BNVA) | payer MEDICARE, MEDICAID, SELFPAY | PROVIDERS: PCP Family Medicine; Visit Provider Nurse Practitioner Family | DX: I25.10 Atherosclerotic heart disease of native coronary artery without angina pectoris (principal); R60.0 Localized edema; I10 Essential (primary) hypertension | CPT/HCPCS: 36415; 80048; 83880; 99214 ==

== ENCOUNTER → 2022-09-24 10:04 | Outpatient (BNVA) | payer MEDICARE, MEDICAID, SELFPAY | PROVIDERS: PCP Family Medicine; Visit Provider Family Medicine | DX: E11.9 Type 2 diabetes mellitus without complications (principal) | CPT/HCPCS: 82652; 83036 ==

== ENCOUNTER → 2022-10-03 12:38 | Outpatient (BNVA) | payer MEDICARE, MEDICAID, SELFPAY | PROVIDERS: PCP Family Medicine; Visit Provider Nurse Practitioner Family | DX: Z98.890 Other specified postprocedural states (principal) | CPT/HCPCS: 99024; 99213 ==

== ENCOUNTER 2022-10-17 08:40 | Outpatient (RCR) | payer MEDICARE, MEDICAID, SELFPAY | END 2022-11-08 23:59 | disposition home or self-care (01) | LOC: SPT 08:40 | PROVIDERS: PCP Family Medicine; Visit Provider Nurse Practitioner Family | DX: Z47.89 Encounter for other orthopedic aftercare (principal) | CPT/HCPCS: 97110; 97161 ==

== ENCOUNTER → 2022-10-31 08:06 | Outpatient (BNVA) | payer MEDICARE, MEDICAID, SELFPAY | PROVIDERS: PCP Family Medicine; Visit Provider Nurse Practitioner Family | DX: S43.82XA Sprain of other specified parts of left shoulder girdle, initial encounter; V89.2XXA Person injured in unspecified motor-vehicle accident, traffic, initial encounter; Z98.890 Other specified postprocedural states | CPT/HCPCS: 73030; 99213 ==

== ENCOUNTER 2022-11-09 06:00 | Outpatient (RCR) | payer MEDICARE, MEDICAID, SELFPAY | END 2022-12-08 23:59 | disposition home or self-care (01) | LOC: SPT 06:00 | PROVIDERS: PCP Family Medicine; Visit Provider Nurse Practitioner Family | DX: Z98.890 Other specified postprocedural states (principal) | CPT/HCPCS: 97110 ==

== ENCOUNTER → 2022-11-30 09:34 | Outpatient (BNVA) | payer MEDICARE, MEDICAID, SELFPAY | PROVIDERS: PCP Family Medicine; Visit Provider Physician Assistant | DX: Z98.890 Other specified postprocedural states; S43.80XA Sprain of other specified parts of unspecified shoulder girdle, initial encounter; X58.XXXA Exposure to other specified factors, initial encounter | CPT/HCPCS: 99213 ==

== ENCOUNTER → 2022-12-06 10:29 | Outpatient (BNVA) | payer MEDICARE, MEDICAID, SELFPAY | PROVIDERS: PCP Family Medicine; Visit Provider Podiatrist Foot & Ankle Surgery | DX: E11.42 Type 2 diabetes mellitus with diabetic polyneuropathy (principal); L60.3 Nail dystrophy; M19.079 Primary osteoarthritis, unspecified ankle and foot; Z79.84 Long term (current) use of oral hypoglycemic drugs | CPT/HCPCS: 11721 ==

== ENCOUNTER 2022-12-09 06:00 | Outpatient (RCR) | payer MEDICARE, MEDICAID, SELFPAY | END 2023-01-08 23:59 | disposition home or self-care (01) | LOC: SPT 06:00 | PROVIDERS: PCP Family Medicine; Visit Provider Physician Assistant | DX: Z47.89 Encounter for other orthopedic aftercare (principal); Z98.890 Other specified postprocedural states | CPT/HCPCS: 97110 ==

== ENCOUNTER 2023-01-09 06:00 | Outpatient (RCR) | payer MEDICARE, MEDICAID, SELFPAY | END 2023-01-23 23:59 | disposition home or self-care (01) | LOC: SPT 06:00 | PROVIDERS: PCP Family Medicine; Visit Provider Physician Assistant | DX: Z47.89 Encounter for other orthopedic aftercare (principal); M25.512 Pain in left shoulder; M62.81 Muscle weakness (generalized) | CPT/HCPCS: 97110 ==

== ENCOUNTER → 2023-01-11 08:03 | Outpatient (BNVA) | payer MEDICARE, MEDICAID, SELFPAY | PROVIDERS: PCP Family Medicine; Visit Provider Physician Assistant | DX: M75.42 Impingement syndrome of left shoulder; S49.92XA Unspecified injury of left shoulder and upper arm, initial encounter; S43.80XA Sprain of other specified parts of unspecified shoulder girdle, initial encounter; V89.2XXA Person injured in unspecified motor-vehicle accident, traffic, initial encounter | CPT/HCPCS: 73030; 99213 ==

== ENCOUNTER 2023-01-28 12:50 | Outpatient (CLI) | payer MEDICARE, MEDICAID, SELFPAY ==
--- NOTE | 2023-01-28 12:59 | MM_ITS ---
WS: [id number] LEFT 3D TOMOSYNTHESIS DIGITAL MAMMOGRAPHY WITH CAD CLINICAL INFORMATION: Left breast abnormal mammo, LT breast calcifications. HISTORY: 6-month follow-up calcifications. COMPARISON: 06/21/2022 TECHNIQUE: 3 views of the left breast were obtained. FINDINGS: Scattered fibroglandular densities of the left breast. Previously described clustered calcifications upper outer LEFT breast with a punctate appearance are unchanged since 06/21/2022. Stability is reassu ring and these have a benign punctate appearance and recommend return to annual screen mammography. IMPRESSION: MM/[place] [id number] BI-RADS: 2-Benign FOLLOW UP: 1 Year Follow-up Recommend return to annual screening mammography.
== END 2023-01-28 12:51 | disposition home or self-care (01) ==
LOC: RAD 12:50
PROVIDERS: PCP Family Medicine; Visit Provider Family Medicine
DX: R92.1 Mammographic calcification found on diagnostic imaging of breast (principal); R92.8 Other abnormal and inconclusive findings on diagnostic imaging of breast
CPT/HCPCS: 77061; G0279

== ENCOUNTER → 2023-02-27 09:17 | Outpatient (BNVA) | payer MEDICARE, MEDICAID, SELFPAY | PROVIDERS: PCP Family Medicine; Visit Provider Podiatrist Foot & Ankle Surgery | DX: E11.42 Type 2 diabetes mellitus with diabetic polyneuropathy; L60.3 Nail dystrophy; M19.071 Primary osteoarthritis, right ankle and foot; M19.072 Primary osteoarthritis, left ankle and foot; Z79.84 Long term (current) use of oral hypoglycemic drugs | CPT/HCPCS: 11721 ==

== ENCOUNTER 2023-03-07 07:40 | Outpatient (CLI) | payer MEDICARE, MEDICAID, SELFPAY ==
--- NOTE | 2023-03-07 07:44 | MR_ITS ---
WS: [id number] MRI LEFT SHOULDER NONCONTRAST TECHNIQUE: Sagittal T2, coronal T1, T2 and proton density imaging. Axial gradient PDE imaging. CLINICAL INFORMATION: SHOULDER PAIN/ROTATOR CUFF IMPINGEMENT SYNDROME COMPARISON: 08/02/2022 FINDINGS: Postoperative changes rotator cuff anchors are new compared to previous. Advanced degenerative arthri tis at the AC joint with fluid and edema. Mild downsloping acromion. Supraspinatus has been repaired compared to previous. Chronic thinning of the supraspinatus which appears intact. Chronic thinning of the infraspinatus which appears intact. Small amount of subacromial and subdeltoid fluid. Tendinopat hy distal infraspinatus. Teres minor appears intact. Tendinopathy subscapularis tendon distally which appears intact. Tiny bic eps tendon within the bicipital groove. Distal biceps tendon visualized within the bicipital groove. Degenerative fraying of the glenoid labrum. Moderate degenerative narrowing of the glenohumeral artic ulation. Intra-articular biceps tendon appears intact. IMPRESSION: 1. Rotator cuff repair is new from previous. No evidence of recurrent tear. 2. Supraspinatus and infraspinatus appear intact with chronic thinning. Tendinopathy distal infraspi natus. 3. Advanced arthritis of the AC joint with fluid and edema. Subacromial subdeltoid fluid. 4. Tendinopathy distal supraspinatus. 5. Tiny biceps tendon appears intact within the bicipital groove. Intra-articular biceps tendon appe ars intact. 6. No other acute findings.
== END 2023-03-07 07:41 | disposition home or self-care (01) ==
LOC: RAD 07:40
PROVIDERS: PCP Family Medicine; Visit Provider Physician Assistant
DX: M75.42 Impingement syndrome of left shoulder (principal); Z98.890 Other specified postprocedural states; M19.012 Primary osteoarthritis, left shoulder
CPT/HCPCS: 73221

== ENCOUNTER → 2023-03-20 08:50 | Outpatient (BNVA) | payer MEDICARE, MEDICAID, SELFPAY | PROVIDERS: PCP Family Medicine; Visit Provider Family Medicine | DX: E11.42 Type 2 diabetes mellitus with diabetic polyneuropathy (principal); I10 Essential (primary) hypertension; E78.5 Hyperlipidemia, unspecified; E11.9 Type 2 diabetes mellitus without complications; R79.89 Other specified abnormal findings of blood chemistry; E55.9 Vitamin D deficiency, unspecified | CPT/HCPCS: 80053; 80061; 82306; 83036; 83735; 84443; 85025 ==

== ENCOUNTER → 2023-03-27 11:25 | Outpatient (BNVA) | payer MEDICARE, MEDICAID, SELFPAY | PROVIDERS: PCP Family Medicine; Visit Provider Internal Medicine Cardiovascular Disease | DX: I25.10 Atherosclerotic heart disease of native coronary artery without angina pectoris (principal); E78.2 Mixed hyperlipidemia; I10 Essential (primary) hypertension; R00.2 Palpitations | CPT/HCPCS: 99214 ==

== ENCOUNTER → 2023-03-28 10:49 | Outpatient (BNVA) | payer MEDICARE, MEDICAID, SELFPAY | PROVIDERS: PCP Family Medicine; Visit Provider Surgery | DX: R10.13 Epigastric pain (principal); K44.9 Diaphragmatic hernia without obstruction or gangrene; M75.42 Impingement syndrome of left shoulder; M19.012 Primary osteoarthritis, left shoulder | CPT/HCPCS: 20610; 99204; 99214; J3301 ==

== ENCOUNTER → 2023-04-16 09:24 | Outpatient (BNVA) | payer MEDICARE, MEDICAID, SELFPAY | PROVIDERS: PCP Family Medicine; Referring Provider Student in an Organized Health Care Education/Training Program; Visit Provider Orthopaedic Surgery | DX: M54.2 Cervicalgia (principal) | CPT/HCPCS: 72050; 99203 ==

== ENCOUNTER 2023-04-24 06:41 | Day surgery (SDC) | payer MEDICARE, MEDICAID, SELFPAY ==
[2023-04-24 06:57] VITALS: BP 169/75; PULSE 53; RESP 18; TEMP 36; O2SAT 96; BMI 39.1
[2023-04-24] MEDS: sodium chloride 0.9% 1,000 ML 30 ML IV (07:04)
[2023-04-24 07:06] LABS: Glucose Point of Care 129 mg/dL (70-110)
--- NOTE | 2023-04-24 07:36 | ANES.PREANE2 ---
Pre-Anesthetic Assessment Height/Weight: Height 1.57 m Weight 97.069 kg Temp Pulse Resp BP Pulse Ox O2 Del Method 96.8 F L 53 L 18 169/75 96 Room Air 04/24/23 06:57 04/24/23 06:57 04/24/23 06:57 04/24/23 06:57 04/24/23 06:57 04/24/23 06:57 Preop Diagnosis: gerd Operation Date: 04/24/23 08:00 [place] p [id number] egd R10.13(Not Applicable) - Manuel Spencer, DO Was Beta Quinn taken within 24 hours: Yes Was Clonidine taken within 24 hours: N/A Last intake: Intake Last Liquid Date 04/23/23 Last Liquid Time 20:00 Last Solid Date 04/23/23 Last Solid Time 17:00 Social No alcohol and No tobacco Exam alert, oriented x 3, clear to auscultation bilaterally and regular rate & rhythm Airway Submandibular: within normal limits Cervical ROM: within normal limits Mallampati: Class I Dentition: chipped Comments: Comments: many missing and chipped teeth History/ROS No significant history except as noted Pulmonary None reported CV/HEM Coronary Artery Disease and Hypertension None reported Hepatic None reported GI Gastroesophageal Reflux Disease and Hiatal Hernia Metabolic Diabetes Mellitus, Hyperlipidemia and Morbid Obesity Musc/skel Lower Back Pain Neuropsych Depression Anesthetic Plan ASA status: 3 Anesthesia: Anesthesia Evaluation and General Risk of > 500 ml blood loss (7ml/kg in children): Yes, adequate IV access and fluids planned Medications/Allergies Home Medications Medication Instructions Recorded Confirmed Last Taken Type aspirin 325 mg tablet 325 mg PO DAILY 09/18/19 04/24/23 04/20/23 History docusate sodium 100 mg capsule 100 mg PO DAILY 07/10/21 04/24/23 04/23/23 History (Colace) cholecalciferol (vitamin D3) 25 25 mcg PO DAILY #90 caps 10/11/21 04/24/23 04/23/23 Rx mcg (1,000 unit) capsule (Vitamin D3) diabetic supplies, [employer]ellan. #100 ea 10/11/21 04/16/23 Unknown Rx cetirizine 10 mg tablet 10 mg PO DAILY #90 tabs 01/22/22 04/24/23 04/23/23 Rx trazodone 100 mg tablet 100 mg PO DAILY 08/22/22 04/24/23 04/23/23 History blood sugar diagnostic (Accu-Chek #300 strips 01/02/23 04/16/23 Unknown Rx Guide test strips) lancets (Accu-Chek Softclix #300 ea 01/02/23 04/16/23 Unknown Rx Lancets) alcohol swabs (DropSafe Alcohol 1 pad topical PER PKG DIR #300 ea 02/04/23 04/16/23 Unknown Rx Prep Pads) [id number] 3.5 4 drp otic (ear) Q8H #10 mL 02/11/23 04/24/23 Unknown Rx mg-10,000 unit/mL-1 % ear drops,susp pantoprazole 40 mg tablet,delayed 40 mg PO BID 6 weeks #84 tabs 03/28/23 04/24/23 04/21/23 Rx release (Protonix) hydrocodone 7.5 mg-acetaminophen 1 tab PO Q6H pain 30 days #90 tabs 04/17/23 04/24/23 04/23/23 Rx 325 mg tablet fluoxetine 20 mg capsule 20 mg PO DAILY 04/24/23 04/24/23 04/23/23 History fluticasone propionate 50 1 spray intranasal BID 04/24/23 04/24/23 04/23/23 History mcg/actuation nasal spray,suspension gabapentin 400 mg capsule 400 mg PO BID 04/24/23 04/24/23 04/23/23 History metformin 1,000 mg tablet 1,000 mg PO BID 04/24/23 04/24/23 04/23/23 History metoprolol tartrate 25 mg tablet 25 mg PO DAILY 04/24/23 04/24/23 04/24/23 History oxybutynin chloride 5 mg tablet 5 mg PO DAILY 04/24/23 04/24/23 04/23/23 History potassium chloride 20 mEq 20 meq PO TID 04/24/23 04/24/23 04/23/23 History tablet,extended release(part/cryst) simvastatin 20 mg tablet 20 mg PO DAILY 04/24/23 04/24/23 04/23/23 History spironolactone 25 mg tablet 12.5 mg PO DAILY 04/24/23 04/24/23 04/23/23 History Allergies Allergy/AdvReac Type Severity Reaction Status Date / Time celecoxib [From Celebrex] Allergy ALGY-Rash Verified 04/24/23 06:51 codeine Allergy ALGY-Rash Verified 04/24/23 06:51 lisinopril Allergy ALGY-Rash Verified 04/24/23 06:51 lorazepam [From Ativan] Allergy ADR-Halluci Verified 04/24/23 06:51 nating naproxen Allergy ALGY-Rash Verified 04/24/23 06:51 nitroglycerin Allergy ALGY-Rash Verified 04/24/23 06:51 oxycodone [From Percodan] Allergy ALGY-Rash Verified 04/24/23 06:51 tramadol [From Ultram] Allergy ALGY-Rash Verified 04/24/23 06:51 Current Medications Generic Name Dose Route Start Last Admin Trade Name Freq PRN Reason Stop Dose Admin Sodium Chloride 1,000 mls @ 30 mls/hr 04/24/23 07:00 04/24/23 07:04 Sodium Chloride 0.9% IV 04/25/23 06:59 30 mls/hr .Q24H ALESSIO Administration PFSH Anesthesia Medical History Neuropathy Chest pain Atherosclerosis Paroxysmal cardiac arrhythmia Palpitations Hypertension Coronary artery disease Hyperlipidemia GERD (gastroesophageal reflux disease) Fibromyalgia Surgical History Hx of tubal ligation Hx of appendectomy History of bilateral carpal tunnel release Hx of cataract extraction History of back surgery History of bilateral knee replacement Hx of non-cataract eye surgery History of left knee replacement Family History Mother Diabetes CAD (coronary artery disease) Sister Cancer Brother Cancer Father CAD (coronary artery disease) Denies family history of Clotting disorder Dementia Chronic kidney disease (CKD) Suicide Anesthesia complication Bleeding disorder Lung disease Stroke Social History Smoking and tobacco/nicotine status: never used tobacco/nicotine Alcohol intake: never Substance/Drug Use: never Female Reproductive History Spontaneous abortions: No Data Anesthesia Cardiac Studies: Sestamibi Stress Test (Cardiology) 08/21/22
--- NOTE | 2023-04-24 07:58 | W.PM.OPSUD ---
Surgery/Procedure H&P Update DATE OF PROCEDURE: April 24, 2023 DATE H&P PERFORMED: 03/28/23 H&P UPDATE INFORMATION: I have reviewed H&P completed within last 30 days, I have examined patient prior to procedure and No changes to prior documentation PREOP DIAGNOSIS: gerd PLANNED PROCEDURE: Operation Date: 04/24/23 08:00 Proposed Procedures p [id number] egd R10.13(Not Applicable) - Manuel Spencer, DO
[2023-04-24 08:07] VITALS: BP 115/79; PULSE 70; RESP 16; TEMP 36.1; O2SAT 96
[2023-04-24 08:20] VITALS: BP 129/86; PULSE 71; RESP 18; O2SAT 93
--- NOTE | 2023-04-24 14:47 | ANE.PACU2 ---
Inpatient post-anesthesia follow up: Airway intact: Yes Vital signs: Temperature 97.0 F Pulse Rate 71 Respiratory Rate 18 Blood Pressure 129/86 Pulse Oximetry 93 Oxygen Delivery Me thod Room Air Oxygen Flow Rate Fraction of Inspir ed Oxygen Hydration adequate: Yes Nausea and vomiting: No Pain level: 2 Mental status: Baseline
== END 2023-04-24 08:31 | disposition home or self-care (01) ==
PROVIDERS: PCP Family Medicine; Visit Provider Surgery
PROC: 0DJ08ZZ Inspection of Upper Intestinal Tract, Via Natural or Artificial Opening Endoscopic (ICD-10-PCS; CPT 43235; principal; 2023-04-24 08:00)
DX: R10.13 Epigastric pain (principal); K21.9 Gastro-esophageal reflux disease without esophagitis; K29.20 Alcoholic gastritis without bleeding; I25.10 Atherosclerotic heart disease of native coronary artery without angina pectoris; I10 Essential (primary) hypertension; E11.9 Type 2 diabetes mellitus without complications; E78.5 Hyperlipidemia, unspecified; E66.01 Morbid (severe) obesity due to excess calories; Z68.39 Body mass index [BMI] 39.0-39.9, adult; Z79.82 Long term (current) use of aspirin; Z79.84 Long term (current) use of oral hypoglycemic drugs
CPT/HCPCS: 36416; 43239; 82962; 88305; 88342; J2704; J3010; J3490; J7030

== ENCOUNTER → 2023-05-17 10:45 | Outpatient (BNVA) | payer MEDICARE, MEDICAID, SELFPAY | PROVIDERS: Visit Provider Surgery | DX: Z09 Encounter for follow-up examination after completed treatment for conditions other than malignant neoplasm (principal); K21.9 Gastro-esophageal reflux disease without esophagitis; K44.9 Diaphragmatic hernia without obstruction or gangrene; R10.13 Epigastric pain | CPT/HCPCS: 99214 ==

== ENCOUNTER 2023-05-28 11:30 | Outpatient (RCR) | payer MEDICARE, MEDICAID, SELFPAY | END 2023-06-09 23:59 | disposition home or self-care (01) | LOC: SPT 11:30 | PROVIDERS: PCP Family Medicine; Visit Provider Orthopaedic Surgery | DX: M54.2 Cervicalgia (principal); M25.519 Pain in unspecified shoulder | CPT/HCPCS: 97110; 97161; 99214 ==

== ENCOUNTER 2023-06-10 06:00 | Outpatient (RCR) | payer MEDICARE, MEDICAID, SELFPAY | END 2023-07-02 23:59 | disposition home or self-care (01) | LOC: SPT 06:00 | PROVIDERS: PCP Family Medicine; Visit Provider Orthopaedic Surgery | DX: M54.2 Cervicalgia (principal); M25.519 Pain in unspecified shoulder | CPT/HCPCS: 97110 ==

== ENCOUNTER → 2023-06-18 09:41 | Outpatient (BNVA) | payer MEDICARE, MEDICAID, SELFPAY | PROVIDERS: PCP Family Medicine; Visit Provider Family Medicine | DX: S69.91XA Unspecified injury of right wrist, hand and finger(s), initial encounter (principal); X58.XXXA Exposure to other specified factors, initial encounter; M79.641 Pain in right hand; M19.041 Primary osteoarthritis, right hand | CPT/HCPCS: 73120 ==

== ENCOUNTER → 2023-07-19 10:04 | Outpatient (BNVA) | payer MEDICARE, MEDICAID, SELFPAY | PROVIDERS: PCP Family Medicine; Visit Provider Student in an Organized Health Care Education/Training Program | DX: M75.42 Impingement syndrome of left shoulder (principal); M19.012 Primary osteoarthritis, left shoulder | CPT/HCPCS: 99213 ==

== ENCOUNTER → 2023-07-25 13:54 | Outpatient (BNVA) | payer MEDICARE, MEDICAID, SELFPAY | PROVIDERS: PCP Family Medicine; Visit Provider Orthopaedic Surgery | DX: Z09 Encounter for follow-up examination after completed treatment for conditions other than malignant neoplasm | CPT/HCPCS: 99214 ==

== ENCOUNTER → 2023-08-14 07:41 | Outpatient (BNVA) | payer MEDICARE, MEDICAID, SELFPAY | PROVIDERS: PCP Family Medicine; Visit Provider Podiatrist Foot & Ankle Surgery | DX: E11.8 Type 2 diabetes mellitus with unspecified complications (principal); E11.42 Type 2 diabetes mellitus with diabetic polyneuropathy; M19.071 Primary osteoarthritis, right ankle and foot; M19.072 Primary osteoarthritis, left ankle and foot; M21.41 Flat foot [pes planus] (acquired), right foot; M21.42 Flat foot [pes planus] (acquired), left foot; L60.3 Nail dystrophy | CPT/HCPCS: 11721 ==

== ENCOUNTER → 2023-08-20 12:53 | Outpatient (BNVA) | payer MEDICARE, MEDICAID, SELFPAY | PROVIDERS: PCP Family Medicine; Visit Provider Student in an Organized Health Care Education/Training Program | DX: Z01.818 Encounter for other preprocedural examination (principal) | CPT/HCPCS: 36415; 80053; 81001; 85025 ==

== ENCOUNTER → 2023-09-17 09:40 | Outpatient (BNVA) | payer MEDICARE, SELFPAY | PROVIDERS: PCP Family Medicine; Visit Provider Family Medicine | DX: Z01.818 Encounter for other preprocedural examination (principal) | CPT/HCPCS: 80048; 83036; 85025; 93005 ==

== ENCOUNTER → 2023-09-18 08:32 | Outpatient (BNVA) | payer MEDICARE, SELFPAY | PROVIDERS: PCP Family Medicine; Visit Provider Family Medicine | DX: Z01.818 Encounter for other preprocedural examination (principal) | CPT/HCPCS: 81003 ==

== ENCOUNTER → 2023-09-26 10:13 | Outpatient (BNVA) | payer MEDICARE, SELFPAY | PROVIDERS: PCP Family Medicine; Visit Provider Internal Medicine Cardiovascular Disease | DX: I25.10 Atherosclerotic heart disease of native coronary artery without angina pectoris (principal); E78.2 Mixed hyperlipidemia; I10 Essential (primary) hypertension; R00.2 Palpitations | CPT/HCPCS: 99214 ==

== ENCOUNTER 2023-10-03 10:13 | Day surgery (SDC) | payer MEDICARE, SELFPAY ==
[2023-10-03] VITALS (8 sets, daily range): BP systolic 130–164; BP diastolic 76–98; PULSE 65–92; RESP 16–18; TEMP 36.2–36.4; O2SAT 93–100; BMI 36.6
[2023-10-03 10:55] LABS: Glucose Point of Care 112 mg/dL (70-110)
[2023-10-03] MEDS: sodium chloride 0.9% 1,000 ML 30 ML IV (10:56)
[2023-10-03] MEDS: scopolamine 1.5 Patch 1 PATCH TRANSDERMA (10:56)
[2023-10-03] MEDS: acetaminophen 1,000 MG/100 ML PIGGYBACK 400 MG IV (10:57)
--- NOTE | 2023-10-03 11:05 | ANES.PREANE2 ---
Pre-Anesthetic Assessment Height/Weight: Height 1.57 m Weight 90.718 kg Temp Pulse Resp BP Pulse Ox O2 Del Method 97.6 F 68 18 130/80 98 Room Air 10/03/23 10:34 10/03/23 10:34 10/03/23 10:34 10/03/23 10:34 10/03/23 10:34 10/03/23 10:34 Operation Date: 10/03/23 12:15 Proposed Procedures p Shoulder Arthroscopy(Left) - Krzysztof Milka, DO s Subacromial Decompression(Left) - Krzysztof Kershaw, DO s AC Joint Resection(Left) - Krzysztof Milka, DO Familial anesthetic complications: None Was Beta Quinn taken within 24 hours: N/A Was Clonidine taken within 24 hours: N/A Last intake: Intake Last Liquid Date 10/02/23 Last Liquid Time 21:00 Last Solid Date 10/02/23 Last Solid Time 20:00 Social No alcohol and No tobacco Exam alert, oriented x 3, clear to auscultation bilaterally and regular rate & rhythm Airway Mallampati: Class III Dentition: other (mutiple missing) CV/HEM Coronary Artery Disease and Hypertension Denies SOB, CP, or CAO 09/17/23: ECG 12 lead Interpretive Statements SINUS RHYTHM Compared to ECG 08/13/2022 10:36:29 Sinus bradycardia no longer present 08/21/22 Sestamibi Stress Test Request EKG Portion 1.? Normal EKG response to Lexiscan infusion 2.? No Lexiscan induced chest pain or cardiac arrhythmia. 3.? Normal blood pressure and heart rate response. 4.? Sestamibi/sestamibi perfusion scan pending; see separate report. Imaging 1. Normal myocardial perfusion imaging with no evidence of ischemia 2. LV systolic function is normal 08/15/21 Stress Test Imaging 1.? Myocardial perfusion imaging revealing small to moderate area of persistent ?decreased tracer uptake in the inferior and inferolateral region with a subtle ?area of reversibility in the basal inferior region, suggestive of ischemia in ?the distribution of the right coronary artery.? However because of the ?inconsistency with the supine imaging the reliability is compromised.? Slightly ?elevated transient ischemic dilatation ratio 1.15 also may assist endocardial ?ischemia.? However the clinical correlation recommended. ?2.? Normal LV ejection fraction 71%. ?3.? LV wall motion analysis revealing no gross wall motion abnormalities. ?4.? Normal LV volume ?No similar previous studies are available for comparison EKG Portion 1.? Nonspecific EKG changes with the LexiScan infusion 2. No LexiScan induced chest pain or cardiac arrhythmia 3. Normal blood pressure and heart rate response 09/02/19 ECG SINUS BRADYCARDIA Compared to ECG 05/28/2017 12:56:28 Sinus rhythm no longer present 10/30/17 Echo Normal left ventricular size and systolic function, EF 67 %. No regional wall motion abnormalities. Normal diastolic function. Mild mitral annular calcification. Trace tricuspid valve regurgitation. Estimated pulmonary artery peak systolic pressure of 21 mmHg. There is no pericardial effusion. There are no intracardiac masses. 10/25/14 LHC Mild diffuse disease in the mid and distal LAD No other significant stenotic lesions Normal LV ejection fraction Minimally elevated LVEDP 10/20/14 Stress Test 1. Myocardial perfusion imaging revealed a subtle areas of reversible defect in the basal inferior wall region, suggestive of ischemia in the distribution of the right coronary artery 2. Left ventricular wall motion analysis revealed wall motion abnormalities as mentioned above 3. Left ventricular ejection fraction was estimated to be within normal limits, 58%. 4. Left ventricular volume was within normal limits. 1. Abormal EKG response to LexiScan infusion suggestive of ischemia in the anterolateral and inferior leads 2. No LexiScan induced chest pain or cardiac arrhythmia 3. Normal blood pressure and heart rate response No previous study is available for comparison GI Gastroesophageal Reflux Disease and Hiatal Hernia Metabolic Diabetes Mellitus and Morbid Obesity [facility] [place] Fibromyalgia Anesthetic Plan ASA status: 3 Anesthesia: General and Regional (specify below) Risk of > 500 ml blood loss (7ml/kg in children): No Medications/Allergies Home Medications Medication Instructions Recorded Confirmed Last Taken Type aspirin 325 mg tablet 325 mg PO DAILY 09/18/19 10/02/23 09/28/23 History docusate sodium 100 mg capsule 100 mg PO DAILY 07/10/21 10/02/23 10/02/23 History (Colace) cholecalciferol (vitamin D3) 25 25 mcg PO DAILY #90 caps 10/11/21 10/02/23 10/02/23 Rx mcg (1,000 unit) capsule (Vitamin D3) diabetic supplies, miscellan. #100 ea 10/11/21 09/18/23 Unknown Rx cetirizine 10 mg tablet 10 mg PO DAILY #90 tabs 01/22/22 10/02/23 10/02/23 Rx blood sugar diagnostic (Accu-Chek #300 strips 01/02/23 09/18/23 Unknown Rx Guide test strips) lancets (Accu-Chek Softclix #300 ea 01/02/23 09/18/23 Unknown Rx Lancets) alcohol swabs (DropSafe Alcohol 1 pad topical PER PKG DIR #300 ea 02/04/23 09/18/23 Unknown Rx Prep Pads) fluoxetine 20 mg capsule 20 mg PO DAILY 04/24/23 10/02/23 10/02/23 History fluticasone propionate 50 1 spray intranasal BID 04/24/23 10/02/23 04/23/23 History mcg/actuation nasal spray,suspension metformin 1,000 mg tablet 1,000 mg PO BID 04/24/23 10/02/23 10/02/23 History oxybutynin chloride 5 mg tablet 5 mg PO DAILY 04/24/23 10/02/23 10/02/23 History simvastatin 20 mg tablet 20 mg PO DAILY 04/24/23 10/02/23 10/02/23 History spironolactone 25 mg tablet 12.5 mg PO DAILY 04/24/23 10/02/23 10/02/23 History pantoprazole 40 mg tablet,delayed 40 mg PO BID 1 month #60 tabs 05/17/23 10/02/23 10/03/23 Rx release (Protonix) diaetic shoes with 3 inserts #1 ea 05/29/23 09/18/23 Unknown Rx gabapentin 400 mg capsule 400 mg PO BID #90 caps 06/18/23 10/02/23 10/02/23 Rx trazodone 100 mg tablet 100 mg PO DAILY #90 tabs 06/18/23 10/02/23 10/02/23 Rx hydrocodone 7.5 mg-acetaminophen 1 tab PO Q6H pain 30 days #120 tabs 09/18/23 10/02/23 Unknown Rx 325 mg tablet hydrocodone 5 mg-acetaminophen 325 1 tab PO Q6H PRN pain 5 days #20 10/03/23 Unknown Rx mg tablet tabs metoprolol tartrate 25 mg tablet 25 mg PO BID 10/03/23 10/03/23 10/03/23 08:00 History ondansetron 4 mg disintegrating 4 mg PO Q8H PRN nausea and 10/03/23 Unknown Rx tablet vomiting 3 days #9 tabs potassium chloride 20 mEq 20 meq PO TID 10/03/23 10/03/23 10/02/23 History tablet,extended release(part/cryst) semaglutide 0.25 mg or 0.5 mg (2 0.5 mg SUBCUT Q7D 10/03/23 10/03/23 09/20/23 History mg/3 mL) subcutaneous pen injector (Ozempic) Allergies Allergy/AdvReac Type Severity Reaction Status Date / Time celecoxib [From Celebrex] Allergy ALGY-Rash Verified 09/26/23 10:50 codeine Allergy ALGY-Rash Verified 09/26/23 10:50 lisinopril Allergy ALGY-Rash Verified 09/26/23 10:50 lorazepam [From Ativan] Allergy ADR-Halluci Verified 09/26/23 10:50 nating naproxen Allergy ALGY-Rash Verified 09/26/23 10:50 nitroglycerin Allergy ALGY-Rash Verified 09/26/23 10:50 oxycodone [From Percodan] Allergy ALGY-Rash Verified 09/26/23 10:50 tramadol [From Ultram] Allergy ALGY-Rash Verified 09/26/23 10:50 Current Medications Generic Name Dose Route Start Last Admin Trade Name Freq PRN Reason Stop Dose Admin Sodium Chloride 1,000 mls @ 30 mls/hr 10/03/23 10:30 10/03/23 10:56 Sodium Chloride 0.9% IV 10/04/23 10:29 30 mls/hr .Q24H ALESSIO Administration PFSH Anesthesia Medical History Neuropathy Chest pain Atherosclerosis Paroxysmal cardiac arrhythmia Palpitations Hypertension Coronary artery disease Hyperlipidemia GERD (gastroesophageal reflux disease) Fibromyalgia Surgical History Hx of tubal ligation Hx of appendectomy History of bilateral carpal tunnel release Hx of cataract extraction History of back surgery History of bilateral knee replacement Hx of non-cataract eye surgery History of left knee replacement Family History Mother Diabetes CAD (coronary artery disease) Sister Cancer Brother Cancer Father CAD (coronary artery disease) Denies family history of Clotting disorder Dementia Chronic kidney disease (CKD) Suicide Anesthesia complication Bleeding disorder Lung disease Stroke Social History Smoking and tobacco/nicotine status: never used tobacco/nicotine Alcohol intake: never Substance/Drug Use: never Female Reproductive History Spontaneous abortions: No Data Anesthesia 10/03/23 10:54 Cardiac Studies: Sestamibi Stress Test (Cardiology) 08/21/22
--- NOTE | 2023-10-03 11:12 | P.HP_ITS ---
Same Day Surgery H&P Indication for Procedure/HPI DATE OF PROCEDURE: October 03, 2023 CHIEF COMPLAINT/INDICATIONFOR SURGICAL PROCEDURE: Left shoulder AC joint arthritis subacromial impingement and biceps tendinitis PREOP DIAGNOSIS: Left shoulder AC joint arthritis, subacromial impingement, biceps tendiniti PLANNED PROCEDURE: Operation Date: 10/03/23 12:15 Proposed Procedures p Shoulder Arthroscopy(Left) - Krzysztof Jarquin, DO s Subacromial Decompression(Left) - Krzysztof Jarquin, DO s AC Joint Resection(Left) - Krzysztof Alvarezatt, DO Medications/Allergies* Home Medications Medication Instructions Recorded Confirmed Type aspirin 325 mg tablet 325 mg PO DAILY 09/18/19 10/02/23 History docusate sodium 100 mg capsule 100 mg PO DAILY 07/10/21 10/02/23 History (Colace) fluoxetine 20 mg capsule 20 mg PO DAILY 04/24/23 10/02/23 History fluticasone propionate 50 1 spray intranasal BID 04/24/23 10/02/23 History mcg/actuation nasal spray,suspension metformin 1,000 mg tablet 1,000 mg PO BID 04/24/23 10/02/23 History oxybutynin chloride 5 mg tablet 5 mg PO DAILY 04/24/23 10/02/23 History simvastatin 20 mg tablet 20 mg PO DAILY 04/24/23 10/02/23 History spironolactone 25 mg tablet 12.5 mg PO DAILY 04/24/23 10/02/23 History metoprolol tartrate 25 mg tablet 25 mg PO BID 10/03/23 10/03/23 History potassium chloride 20 mEq 20 meq PO TID 10/03/23 10/03/23 History tablet,extended release(part/cryst) semaglutide 0.25 mg or 0.5 mg (2 0.5 mg SUBCUT Q7D 10/03/23 10/03/23 History mg/3 mL) subcutaneous pen injector (Ozempic) Allergies/Adverse Reactions Allergy/AdvReac Type Severity Reaction Status Date / Time celecoxib [From Celebrex] Allergy ALGY-Rash Verified 09/26/23 10:50 codeine Allergy ALGY-Rash Verified 09/26/23 10:50 lisinopril Allergy ALGY-Rash Verified 09/26/23 10:50 lorazepam [From Ativan] Allergy ADR-Halluci Verified 09/26/23 10:50 nating naproxen Allergy ALGY-Rash Verified 09/26/23 10:50 nitroglycerin Allergy ALGY-Rash Verified 09/26/23 10:50 oxycodone [From Percodan] Allergy ALGY-Rash Verified 09/26/23 10:50 tramadol [From Ultram] Allergy ALGY-Rash Verified 09/26/23 10:50 Current Medications: Generic Name Dose Route Start Last Admin Trade Name Freq PRN Reason Stop Dose Admin Sodium Chloride 1,000 mls @ 30 mls/hr 10/03/23 10:30 10/03/23 10:56 Sodium Chloride 0.9% IV 10/04/23 10:29 30 mls/hr .Q24H ALESSIO Administration Pertinent History/Comorbid Conditions* Medical History (Updated 08/11/23 @ 08:51 by Carl Mead DO) Neuropathy Chest pain Atherosclerosis Paroxysmal cardiac arrhythmia Palpitations Hypertension Coronary artery disease Hyperlipidemia GERD (gastroesophageal reflux disease) Fibromyalgia Surgical History (Updated 03/27/23 @ 12:14 by Andres Valencia MD) Hx of tubal ligation Hx of appendectomy History of bilateral carpal tunnel release Hx of cataract extraction History of back surgery History of bilateral knee replacement Hx of non-cataract eye surgery History of left knee replacement Family History (Updated 07/10/21 @ 15:05 by Beatrice Clarke RN) Diabetes Mother CAD (coronary artery disease) Mother Father Cancer Sister Brother Denies family history of Clotting disorder Dementia Chronic kidney disease (CKD) Suicide Anesthesia complication Bleeding disorder Lung disease Stroke Social History Smoking and tobacco/nicotine status: never used tobacco/nicotine Alcohol intake: never Substance/Drug Use: never Pertinent Exam Findings alert, oriented x 3, operative site marked and procedure specific exam findings Please refer to detailed orthopedic examination on 08/20/2023 detailed below: Left Shoulder- Tenderness over C-spine with pain with Spurling's -ROM active 0-160 with pain at end range of motion -Tenderness over ac joint and clavicle, positive crossover arm Neer's test with tenderness over AC joint -Patient has some weakness and pain with [place], [place], speeds, positive Leal impingement -Still has some weakness with external and internal rotation -Radial pulse 2+. Fingers are warm and well-perfused with normal cap refill under 2 seconds. Normal vice president integrated strength. Recommendations Surgery/Procedure today Other Plans: Plan proceed to the OR today for left shoulder diagnostic and surgical arthroscopy with subacromial decompression, AC joint resection, possible biceps tenotomy versus tenodesis. Patient understands the ins and outs procedure the risk benefits complication alternatives of surgery and through shared decision- making elects proceed with surgical intervention. All questions answered at this time. Coding Level of Care Code Acute Code for Chg Fwd
[2023-10-03 11:22] LABS: Blood Urea Nitrogen 11 mg/dL (8-23); Calcium 8.9 mg/dL (8.5-10.5); Carbon Dioxide 22 mmol/L (22-29); Chloride 106 mmol/L (98-107); Glomerular Filtration Rate 83.5 mL/min (90-130); Glucose 114 mg/dL (65-115); Osmolality Calculated 294 mOsm/kg (285-295); Sodium 142 mmol/L (136-145)
[2023-10-03 11:30] LABS: Anion Gap 18.5 (5-19); Potassium 4.5 mmol/L (3.5-5.1)
--- NOTE | 2023-10-03 11:30 | ANES.PROC ---
Anesthesia Procedures Procedure/Date: 10/03/23 Nerve Block ^: Nerve Block 1: Main Anesthesia: general anesthesia Time Out Performed: Yes Consent: requested by attending/covering physician, from patient, from other, risks and benefits reviewed and patient agrees to proceed Nerve block location: interscalene (L) Anesthesia monitors applied: pulse oximetry, EKG, BP cuff and oxygen Nerve block position: semi sitting Anesthetic Used: ropivicaine 0.5% (20 ml) and with decadron (4 mg) Ultrasound used to: recognize landmarks, visualize and ID brachial plexus, in supraclavicular region and visualize and ID interscalene groove Nerve Stimulator Used?: No Interscalene/Femoral BLK: 2 stimuplex 22 g needle used for position and inplane approach, visualize local anesthetic spread and no vascular puncture identified Injection: neg aspiration of heme Patient Tolerated Procedure: well Complications: none
[2023-10-03] MEDS: ceFAZolin 2,000 MG in sodium chloride 0.9% (plus) 50 ML 100 MG IV (12:42)
[2023-10-03] MEDS: EPINEPHrine 1 mg/mL INJ 6 MG XX (13:29)
--- NOTE | 2023-10-03 14:56 | P.BOP_ITS ---
Date of Procedure: [10/03/2023] Surgeon: Krzysztof Jarquin DO Second Class Welder(s): None Procedure(s) performed: Left shoulder diagnostic and surgical arthroscopy with revision rotator cuff repair (medium) Left shoulder diagnostic and surgical arthroscopy with rotator cuff graft augmentation with Arthrex cuff mend Left shoulder diagnostic and surgical arthroscopy with biceps tenotomy Left shoulder diagnostic and surgical arthroscopy with labral debridement Left shoulder diagnostic and surgical arthroscopy with subacromial decompression (bursectomy and acromioplasty) Left shoulder diagnostic and surgical arthroscopy with AC joint resection (distal clavicle excision) Findings of the procedure(s): Patient was found to have recurrent left rotator cuff tear as well as significant biceps tearing and instability of biceps tendon anchor. At this point in time underwent biceps tenotomy underwent left shoulder rotator cuff revision repair as well as given this being a revision utilize Arthrex cuff mend rotator cuff graft augmentation. Risk the procedure went as planned without issues or complications. Estimated blood loss: 15 mL Specimen(s) removed: None Post-operative diagnosis: Left shoulder recurrent rotator cuff tear, biceps long head tendon tear, AC joint arthritis, subacromial impingement, circumferential labral tearing
--- NOTE | 2023-10-03 15:04 | P.OP_ITS ---
Operative Report Date of procedure: October 03, 2023 Surgeon: Krzysztof Jarquin DO Procedure: Preoperative diagnosis: Left shoulder AC joint arthritis subacromial impingement and biceps tendinitis Post-op diagnosis: Left shoulder recurrent rotator cuff tear, biceps long head tendon tear, AC joint arthritis, subacromial impingement, circumferential labral tearing Procedure done: Left shoulder diagnostic and surgical arthroscopy with revision rotator cuff repair (medium) Left shoulder diagnostic and surgical arthroscopy with rotator cuff graft augmentation with Arthrex cuff mend Left shoulder diagnostic and surgical arthroscopy with biceps tenotomy Left shoulder diagnostic and surgical arthroscopy with labral debridement Left shoulder diagnostic and surgical arthroscopy with subacromial decompression (bursectomy and acromioplasty) Left shoulder diagnostic and surgical arthroscopy with AC joint resection (distal clavicle excision) Surgeon: Krzysztof Jarquin DO Estimated blood loss: 15mL IV fluids: 600 mL Implants: Arthrex 4.75 swivel locks x2 with fibertape and fiberwire Arthrex Aflex 402 cuff mend for rotator cuff graft augmentation Arthrex 1.5 fiber stitch x 2 Arthrex 3.5 mm push lock bio composite anchors x 2 Complications: None Condition: stable Disposition: same day Brief History: Patient been seen and worked up in the outpatient setting for Left?shoulder?pain. Patient said previous history of left shoulder arthroscopy with cuff repair. Pt had an MRI which showed findings below.? Patient's failed conservative treatment and has weakness and persistent pain.? We talked about treatment options far as nonoperative and operative intervention..? We talked about risk benefits complication alternatives surgical nonsurgical treatment options.? Understanding risk of surgery patient agrees to proceed with surgical intervention.? All questions have been answered at this time.? Patient elects proceed with surgery and consent obtained in office. IMPRESSION: 1. Rotator cuff repair is new from previous. No evidence of recurrent tear. 2. Supraspinatus and infraspinatus appear intact with chronic thinning. Tendinopathy distal infraspinatus. 3. Advanced arthritis of the AC joint with fluid and edema. Subacromial subdeltoid fluid. 4. Tendinopathy distal supraspinatus. 5. Tiny biceps tendon appears intact within the bicipital groove. Intra- articular biceps tendon appears intact. 6. No other acute findings. Procedure: Patient seen evaluated in the preoperative holding area.? Consent reviewed and signed with patient.? Once again reviewed patient's MRI results as well as? planned surgical intervention.? Correct extremity marked.? Patient seen evaluated by anesthesia department.? Once ready for surgery was taken back to the operative suite.? Patient then subsequently underwent anesthesia per the anesthesia department was transported onto the OR table.? Patient was then placed into a lateral decubitus position with a beanbag and was appropriately secured to the bed.? All bony prominences well-padded.? Patient then had the Left upper extremity was then prepped and draped in standard orthopedic fashion.? Patient received appropriate preoperative antibiotics.? Final timeout performed. The Left upper extremity was then held in hanging from traction utilizing sterile technique.? Next started with standard diagnostic and surgical arthroscopy with posterior portal position introduced arthroscope into the glenohumeral joint.? Visualized the glenohumeral joint I then introduced a spinal needle within the rotator cuff interval to confirm appropriate anterior portal placement.? Once this was confirmed I then made my small incision and then introduced my arthroscopic shaver into the glenohumeral joint.? After thorough debridement was clearly evident patient had a significant erythema as well as positive liftoff sign of the biceps anchor and biceps tendon tear as it was pulled within the joint completely frayed and shredded bicep tendon was appreciated and unstable as it attaches to the bicep anchor. Given the poor intra-articular tendon quality decision made for tenotomy. Introduced a thermal wand and a biceps tenotomy was performed to completion With appropriate release this retracted and stayed proximally before entering the intertubercular groove. Next I evaluated the subscapularis tendon which was intact and no evidence of tear just minimal fraying appreciated. ?Next there was significant labral tearing at biceps anchor and circumferential.? ? I then subsequently utilized a a arthroscopic shaver and thermal wand to perform a labral debridement.? This point time I then visualized the glenohumeral joint.? The glenohumeral joint was found to have grade 2-3? chondromalacia throughout.? Infrapatellar pouch was free of loose bodies from viewing the posterior portal.? Next a visualized the rotator cuff superiorly and there was a small area of the undersurface of the repair for possible retear. Marked dislocation and then subsequently went to the subacromial space.?? This completed my work within the glenohumeral joint all fluid was suctioned free of the joint.? ?Next I reintroduced the arthroscope posteriorly.? And went to the subacromial space.? I established my lateral working portal at the site of which my spinal needle was marking of the previous rotator cuff repair site. I first proceeded with my bony work of the subacromial space and AC joint. I subsequently utilize thermal wand marching anteriorly off of the anterior edge of the acromion leading me straight to the AC joint AC joint with significant arthritic significant osteophyte formation. I then subsequently proceeded with AC joint resection I placed a bur through my anterior portal in line with the AC joint and then subsequently performed a standard AC joint resection to greater than 1 cm in size. Once I was satisfied with this I then reintroduced the acromionizer to the lateral portal and performed a acromioplasty to open up the subacromial space as well as to prevent from any further impingement within the rotator cuff. Once this was done I then proceeded with my inspection of the rotator cuff. Previous suture anchors were identified. There was a evidence of a medium sized retear. I was able to bluntly probed through a hole which had a complete tear. Decision at this point was made for a single medial row and lateral row anchor on my repair. I then subsequently used arthroscopic shaver laterally to debride the rotator cuff as well as utilized a bur and ring curette to decorticate the footprint to allow for rotator cuff healing in preparation for a revision repair. I remove the excess suture from the prior repair and then subsequently proceeded with my rotator cuff repair. The passport cannula was placed medially. I utilized a spinal needle to place an accessory portal for the medial row anchor with appropriate man's angle perpendicular to the humeral head. I placed a single medial row anchor with fiber tape and FiberWire. I subsequently placed 4 passes from anteriorly to posterior through the rotator cuff. Once this was done I then subsequently utilized a thermal wand and debrided bilateral footprint picked in appropriate position for the rotator cuff tendon had appropriate excursion to fix the rotator cuff tear.. At this point in time they were loaded into a 4.75 swivel lock suture anchor I subsequently punched and then under appropriate tension free repair impacted and secured the 4.[address] in place had excellent fixation repair the excess sutures were then subsequently cut. Shoulder was then taken through range of motion and rotator cuff repair moved as a unit. I was satisfied with this repair however given this was a revision and some of the tendon quality seemed poor I elected to augment my rotator cuff repair with Arthrex a flex cuff mend graft augmentation. After reviewing at this and while mobilizing of the rotator cuff tendon it was deemed that given this is a revision as well as the rotator cuff tissue was noticeably thin I then elected to augment my repair with graft augmentation with Arthrex cuff mend. Arthrex cuff mend was then prepared on the back table per protocol. I subsequently then placed this in the subacromial space on top of the rotator cuff repair. I in standard technique fashion used to fiber stitch sutures and tagged the graft medially both on the anterior and posterior aspects dependence with appropriate spread. And then the 2 fiber link luggage tag sutures on the laterals were then loaded onto 3.5 mm swivel locks which were then advanced and punched and secured under no tension and secured just lateral to the previous suture anchors from rotator cuff repair. All excess suture was then subsequently removed and showed satisfactory placement of graft augmentation with cuff mend. This completed my rotator cuff repair. Shoulder was taken through range of motion and the repair moved as a unit with no evidence of loss of fixation. ?I then switched the arthroscope to the lateral portal to confirm this tension- free repair.? I took the?shoulder?through range of motion and the rotator cuff repair and augmentation was stable and moved as a unit. ?Next I then introduced the arthroscopic shaver posteriorly to complete my subacromial decompression appropriate complaining all the way up to the lateral edge of the acromion.? This completed the surgery.? All fluid was suctioned from the?shoulder.? All instruments were removed.? The lateral incision was then closed deep 0 Vicryl 2-0 Vicryl and with nylon stitches for skin.? As well as the portal sites closed with portal nylon stitches.? Xeroform 4 x 4's ABD and tape was then applied to the Left?shoulder?and was placed into a?shoulder?abduction pillow sling for rotator cuff repair.? Patient was then awakened from anesthesia and then taken back to PACU in stable condition.? Patient tolerated procedure without any issues. Disposition: Patient taken back in stable condition recovering well.? Dressings on in place clean dry and intact.? Will be nonweightbearing to the Left upper extremity.? Follow rotator cuff repair protocol.? Patient to follow-up with me in the office in 2 weeks.? Patient will receive appropriate discharge instruction as well as pain medication postoperatively.? All questions answered.? We will contact the office for any questions or concerns.
[2023-10-03] MEDS: HYDROcodone-acetaminophen 10-325 mg Tablet 1 TAB PO (16:37)
--- NOTE | 2023-10-03 16:50 | ANE.PACU2 ---
Inpatient post-anesthesia follow up: Airway intact: Yes Vital signs: Temperature 97.4 F Pulse Rate 76 Respiratory Rate 17 Blood Pressure 158/82 Pulse Oximetry 93 Oxygen Delivery Me thod Room Air Oxygen Flow Rate 8 Fraction of Inspir ed Oxygen Hydration adequate: Yes Nausea and vomiting: No Pain level: 1 Mental status: Baseline
== END 2023-10-03 16:52 | disposition home or self-care (01) ==
PROVIDERS: Anesthesiology; PCP Family Medicine; Visit Provider Student in an Organized Health Care Education/Training Program
PROC: (CPT 29805; principal; 2023-10-03 12:05)
PROC: (CPT 29826; 2023-10-03 12:05)
PROC: 0RSH0ZZ Reposition Left Acromioclavicular Joint, Open Approach (ICD-10-PCS; CPT 29824; 2023-10-03 12:05)
PROC: (CPT 23430; 2023-10-03 12:05)
PROC: 0LQ24ZZ Repair Left Shoulder Tendon, Percutaneous Endoscopic Approach (ICD-10-PCS; CPT 29827; 2023-10-03 12:05)
PROC: (CPT 29824; 2023-10-03 12:05)
DX: M19.012 Primary osteoarthritis, left shoulder (principal); M25.812 Other specified joint disorders, left shoulder; M75.22 Bicipital tendinitis, left shoulder; I25.10 Atherosclerotic heart disease of native coronary artery without angina pectoris; I10 Essential (primary) hypertension; K21.9 Gastro-esophageal reflux disease without esophagitis; E11.9 Type 2 diabetes mellitus without complications; E66.01 Morbid (severe) obesity due to excess calories; Z68.36 Body mass index [BMI] 36.0-36.9, adult; M79.7 Fibromyalgia; Z79.82 Long term (current) use of aspirin; Z79.84 Long term (current) use of oral hypoglycemic drugs; E78.5 Hyperlipidemia, unspecified
CPT/HCPCS: 29824; 29826; 29827; 29828; 36415; 36416; 80048; 82962; C1713; J0131; J0171; J0690; J1100; J2405; J2704; J2795; J3010; J3490; J7030

== ENCOUNTER → 2023-10-14 14:02 | Outpatient (BNVA) | payer MEDICARE, SELFPAY | PROVIDERS: PCP Family Medicine; Visit Provider Physician Assistant | DX: Z98.890 Other specified postprocedural states; M25.562 Pain in left knee | CPT/HCPCS: 73560; 73565; 99024 ==

== ENCOUNTER → 2023-11-13 07:46 | Outpatient (BNVA) | payer MEDICARE, SELFPAY | PROVIDERS: PCP Family Medicine; Visit Provider Podiatrist Foot & Ankle Surgery | DX: E11.8 Type 2 diabetes mellitus with unspecified complications (principal); E11.42 Type 2 diabetes mellitus with diabetic polyneuropathy; L60.3 Nail dystrophy; Z79.84 Long term (current) use of oral hypoglycemic drugs | CPT/HCPCS: 11721 ==

== ENCOUNTER 2023-11-20 08:24 | Outpatient (RCR) | payer MEDICARE, MEDICAID, SELFPAY | END 2023-12-09 23:59 | disposition home or self-care (01) | LOC: SPT 08:24 | PROVIDERS: Visit Provider Physician Assistant | DX: M75.102 Unspecified rotator cuff tear or rupture of left shoulder, not specified as traumatic (principal) | CPT/HCPCS: 97110; 97162; 97530 ==

== ENCOUNTER → 2023-11-28 09:35 | Outpatient (BNVA) | payer MEDICARE, MEDICAID, SELFPAY | PROVIDERS: Visit Provider Family Medicine | DX: E11.9 Type 2 diabetes mellitus without complications (principal) | CPT/HCPCS: 82043 ==

== ENCOUNTER 2023-12-10 06:30 | Outpatient (RCR) | payer MEDICARE, SELFPAY | END 2024-01-09 23:59 | disposition home or self-care (01) | LOC: SPT 06:30 | PROVIDERS: Visit Provider Physician Assistant | DX: Z98.890 Other specified postprocedural states (principal) | CPT/HCPCS: 97110 ==

== ENCOUNTER → 2023-12-24 13:47 | Outpatient (BNVA) | payer MEDICARE, SELFPAY | PROVIDERS: Visit Provider Physician Assistant | DX: Z98.890 Other specified postprocedural states (principal) | CPT/HCPCS: 99213 ==

== ENCOUNTER 2024-01-10 06:00 | Outpatient (RCR) | payer MEDICARE, SELFPAY | END 2024-01-17 23:59 | disposition home or self-care (01) | LOC: SPT 06:00 | PROVIDERS: Visit Provider Physician Assistant | DX: Z98.890 Other specified postprocedural states (principal) | CPT/HCPCS: 97110 ==

== ENCOUNTER 2024-02-14 09:55 | Outpatient (CLI) | payer MEDICARE, SELFPAY ==
--- NOTE | 2024-02-14 10:30 | MM_ITS ---
WS: [id number] BILATERAL SCREENING DIGITAL TOMOSYNTHESIS MAMMOGRAM WITH CAD HISTORY: screening for breast ca COMPARISON: 01/28/2023, 06/21/2022, 06/06/2022, 03/29/2017 Bilateral CC and MLO views with tomosynthesis and synthetic mammography submitted. Computer aided det ection analyzed. Breast composition: There are scattered areas of fibroglandular density. No suspicious masses, microc alcifications or architectural distortion. Benign calcifications in each breast. No suspicious mass. MM/MM scr BI tomosynthesis [id number] IMPRESSION: BI-RADS: 2 - Benign. FOLLOW UP: 1 Year Follow-up
== END 2024-02-14 09:56 | disposition home or self-care (01) ==
LOC: RAD 09:55
PROVIDERS: PCP Family Medicine; Visit Provider Family Medicine
DX: Z12.31 Encounter for screening mammogram for malignant neoplasm of breast (principal); R92.323 Mammographic fibroglandular density, bilateral breasts; R92.1 Mammographic calcification found on diagnostic imaging of breast
CPT/HCPCS: 77063; 77067

== ENCOUNTER → 2024-02-17 07:36 | Outpatient (BNVA) | payer MEDICARE, SELFPAY | PROVIDERS: PCP Family Medicine; Visit Provider Podiatrist Foot & Ankle Surgery | DX: E11.8 Type 2 diabetes mellitus with unspecified complications (principal); E11.42 Type 2 diabetes mellitus with diabetic polyneuropathy; L60.3 Nail dystrophy; Z79.84 Long term (current) use of oral hypoglycemic drugs | CPT/HCPCS: 11721 ==

== ENCOUNTER 2024-03-10 14:45 | Outpatient (CLI) | payer MEDICARE, SELFPAY ==
--- NOTE | 2024-03-10 15:00 | XR_ITS ---
WS: [email or web address] SCREENING DEXA SCAN [facility] CLINICAL INFORMATION: postmenopausal COMPARISON: 2018 FINDINGS: The LEFT forearm bone mineral density measures 0.91. This corresponds to a T score score of 0.3 and Z score of 2.0. Left femoral neck bone mineral density measures 1.079 g/cm2. This corresponds to a T score of 0.6 and Z score of 1.4. Right femoral neck bone mineral density measures 1.074 g/cm2. This corresponds to a T score 0.5of and Z score of 1.4. Mean femoral neck bone mineral density measures 1.076 g/cm2. This corresponds to a T score of 0.5 and Z score of 1.4. XR/XR DEXA axial skeleton* [id number] IMPRESSION: Normal bone mineralization LEFT forearm. Normal bone mineralization femoral nec ks. Patient's FRAX calculated 10 year probability for major osteoporotic fracture i s 12.2% and osteoporotic hip fracture is 0.7%. Bone mineral density LEFT forearm decreased -0.1% Bone mineral density femoral necks decreased -2.8%
== END 2024-03-10 14:46 | disposition home or self-care (01) ==
PROVIDERS: PCP Family Medicine; Visit Provider Family Medicine
DX: Z13.820 Encounter for screening for osteoporosis (principal); Z78.0 Asymptomatic menopausal state
CPT/HCPCS: 77080

== ENCOUNTER → 2024-04-02 09:17 | Outpatient (BNVA) | payer MEDICARE, MEDICAID, SELFPAY | PROVIDERS: PCP Family Medicine; Visit Provider Nurse Practitioner Family | DX: I25.10 Atherosclerotic heart disease of native coronary artery without angina pectoris (principal); E78.2 Mixed hyperlipidemia; I10 Essential (primary) hypertension; R00.2 Palpitations; Z87.891 Personal history of nicotine dependence | CPT/HCPCS: 99213 ==

== ENCOUNTER 2024-04-06 20:00 | Outpatient (CLI) | payer MEDICARE, SELFPAY | END 2024-04-06 20:01 | disposition home or self-care (01) | LOC: SLEEP 22:34 | PROVIDERS: PCP Family Medicine; Visit Provider Anesthesiology Pain Medicine | DX: G47.33 Obstructive sleep apnea (adult) (pediatric) (principal) | CPT/HCPCS: 95811 ==

== ENCOUNTER → 2024-04-21 11:48 | Outpatient (BNVA) | payer MEDICARE, SELFPAY | PROVIDERS: PCP Family Medicine; Visit Provider Family Medicine | DX: E11.9 Type 2 diabetes mellitus without complications (principal); E78.2 Mixed hyperlipidemia; I25.10 Atherosclerotic heart disease of native coronary artery without angina pectoris; I10 Essential (primary) hypertension | CPT/HCPCS: 80053; 80061; 83036; 84439; 84443; 85025 ==

== ENCOUNTER → 2024-04-22 13:19 | Outpatient (BNVA) | payer MEDICARE, SELFPAY | PROVIDERS: PCP Family Medicine; Visit Provider Physician Assistant | DX: Z98.890 Other specified postprocedural states (principal); M25.512 Pain in left shoulder | CPT/HCPCS: 20610; 99213; J3301 ==

== ENCOUNTER → 2024-04-27 09:31 | Outpatient (BNVA) | payer MEDICARE, SELFPAY | PROVIDERS: PCP Family Medicine; Visit Provider Surgery | DX: K21.9 Gastro-esophageal reflux disease without esophagitis (principal); Z12.11 Encounter for screening for malignant neoplasm of colon; Z12.12 Encounter for screening for malignant neoplasm of rectum; K44.9 Diaphragmatic hernia without obstruction or gangrene | CPT/HCPCS: 99214 ==

== ENCOUNTER 2024-04-29 12:29 | Emergency (ER) | payer MEDICARE, MEDICAID, SELFPAY ==
[2024-04-29 12:51] VITALS: BP 120/76; PULSE 70; RESP 16; TEMP 36.5; O2SAT 98; BMI 33.5
--- NOTE | 2024-04-29 13:08 | XR_ITS ---
WS: [email or web address] Exam: XR ribs RT mn 3V w CXR1V [id number] Date/Time of Exam: 04/29/2024 1:11 PM Reason For Exam: Trauma No acute RIGHT rib fracture. The lungs are fully inflated and clear. No pleural or pulmonary reactive changes noted. Normal cardiomediastinal silhouette. No pleural effusion. XR/XR ribs RT mn 3V w CXR1V [id number] IMPRESSION: 1. No acute rib fracture. 2. No acute cardiopulmonary process noted.
--- NOTE | 2024-04-29 13:08 | XR_ITS ---
WS: [email or web address] Exam: XR wrist RT min 3V* [id number] Date/Time of Exam: 04/29/2024 1:11 PM Reason For Exam: Trauma No acute fracture. Moderately advanced degenerative change at the first CMC joint. Degenerative changes involving the greater and lesser multangular. Calcification of the triangular fibrocartilage. Soft tissues are unremarkable. XR/XR wrist RT min 3V* [id number] IMPRESSION: 1. No acute fracture. Degenerative changes and chondrocalcinosis.
--- NOTE | 2024-04-29 13:08 | XR_ITS ---
WS: [email or web address] Exam: XR shoulder RT min 2V* [id number] Date/Time of Exam: 04/29/2024 1:11 PM Reason For Exam: Trauma No acute fracture. Degenerative changes of the AC joint and glenohumeral joint. Postoperative changes of distal clavicle. Large soft tissue calcification just superior to the humeral head that might reflect calcific bursitis or tendinitis. XR/XR shoulder RT min 2V* [id number] IMPRESSION: 1. No acute fracture visualized. 2. Degenerative changes. Soft tissue calcification just above the humeral head that might reflect calcific tendinitis or bursitis.
[2024-04-29 13:11] VITALS: BP 128/71; PULSE 75; O2SAT 99
--- NOTE | 2024-04-29 13:16 | XR_ITS ---
WS: [email or web address] Exam: XR elbow RT min 3V* [id number] Date/Time of Exam: 04/29/2024 1:16 PM Reason For Exam: trauma No acute fracture. Mild degenerative change. Chondrocalcinosis noted along the radial head. Osteophyte formation along the lateral humeral condyle. No joint effusion. IMPRESSION1. Degenerative change. No fracture.
--- NOTE | 2024-04-29 13:18 | ED_ITS ---
HPI - Extremity Problem General: Chief complaint: Extremity Injury, Upper Stated complaint: right side shoulder and rib pain Time Seen by Provider: 04/29/24 13:08 History of Present Illness: 60-year-old male [facility] after slipping and falling landing right shoulder elbow and wrist pain as well as right rib pain. She did not strike her head she did not lose consciousness she has been ambulatory send she has no pain in her lower extremities or hips. She denies any other injuries. Associated symptoms: Reports chest pain (Right rib pain); Deny fever(s) or rash Related Data Home Medications ?Medication ?Instructions ?Recorded ?Confirmed aspirin 325 mg tablet 325 mg PO DAILY 09/18/19 docusate sodium 100 mg capsule 100 mg PO BID PRN cons tipation 07/10/21 04/29/24 (Colace) fluoxetine 20 mg capsule 20 mg PO DAILY 04/24/2304/11 fluticasone propionate 50 1 spray intranasal DAILY PRN 04/24/23 04/29/24 mcg/actuation nasal Allergy Symptoms spray,suspension metformin 1,000 mg tablet 1,000 mg PO BID 04/24/23 oxybutynin chloride 5 mg tablet 5 mg PO DAILY 04/24/23 04/29/24 simvastatin 20 mg tablet 20 mg PO DAILY 04/24/2304/11 spironolactone 25 mg tablet 12.5 mg PO DAILY 04/24/23 04/29/24 metoprolol tartrate 25 mg tablet 25 mg PO BID 10/03/23 04/29/24 hydrocodone 7.5 mg-acetaminophen See Rx Instructions . Route .COMPLEX 04/29/24 04/29/24 325 mg tablet Previous Rx's ?Medication ?Instructions ?Recorded cholecalciferol (vitamin D3) 25 25 mcg PO DAILY #90 ca ps 10/11/21 mcg (1,000 unit) capsule (Vitamin D3) diabetic supplies, myAchycellan. #100 ea 10/11/21 cetirizine 10 mg tablet 10 mg PO DAILY #90 tabs 01/09 06/30 lancets (Accu-Chek Softclix #300 ea 01/02/23 Lancets) diaetic shoes with 3 inserts #1 ea 05/29/23 trazodone 100 mg tablet 100 mg PO DAILY #90 tabs 01/ 05/25 gabapentin 400 mg capsule 400 mg PO BID Neuropathy #12 0 caps 03/18/24 pantoprazole 40 mg tablet,delayed 40 mg PO BID 1 month #120 tabs 03/18/24 release (Protonix) semaglutide 0.25 mg or 0.5 mg (2 0.5 mg (0.736 mL) SUB CUT Q7D #3 mL 03/18/24 mg/3 mL) subcutaneous pen injector (Ozempic) blood sugar diagnostic (Accu-Chek #300 strips 04/17/24 Guide test strips) potassium chloride 20 mEq 20 meq PO BID #180 tabs 04/11 06/02 tablet,extended release(part/cryst) Allergies Allergy/AdvReac Type Severity Reaction Status Date / Time celecoxib (From Celebrex) Allergy ALGY-Rash Verified 04/29/24 12:56 codeine Allergy ALGY-Rash Verified 04/29/24 12:56 lisinopril Allergy ALGY-Rash Verified 04/29/24 12:56 lorazepam (From Ativan) Allergy ADR-Halluci Verified 04/29/24 12:56 nating naproxen Allergy ALGY-Rash Verified 04/29/24 12:56 nitroglycerin Allergy ALGY-Rash Verified 04/29/24 12:56 oxycodone (From Percodan) Allergy ALGY-Rash Verified 04/29/24 12:56 tramadol (From Ultram) Allergy ALGY-Rash Verified 04/29/24 12:56 Review of Systems Const: Denies: fever(s) or chills Card: Reports: chest pain (Right rib pain) Resp: Denies: dyspnea GI: Denies: abdominal pain : Denies: dysuria, urinary frequency or urinary urgency Musc: Reports: extremity pain and joint pain; Denies: neck pain or back pain Skin/Breast: Denies: rash PFSH ED PFSH: Medical History Obesity Chronic back pain greater than 3 months duration goes to pain clinic for hydrocodone Type 2 diabetes mellitus without complications Urge incontinence of urine GERD without esophagitis Diabetic peripheral neuropathy associated with type 2 diabetes mellitus Insomnia Major depression Neuropathy Atherosclerosis Paroxysmal cardiac arrhythmia Palpitations Hypertension Coronary artery disease Hyperlipidemia Fibromyalgia Surgical History Hx of colonoscopy 2.23.15--normal; repeat 10 yrs Hx of coronary angiogram 8.17.15 mild CAD; no intervention Hx of esophagogastroduodenoscopy normal Hx of bone marrow donation History of arthroplasty of left shoulder History of arthroscopy of left shoulder History of arthroscopy of right shoulder Hx of tubal ligation Hx of appendectomy History of bilateral carpal tunnel release Hx of cataract extraction OU History of back surgery History of bilateral knee replacement Hx of non-cataract eye surgery for floaters Family History Mother Diabetes CAD (coronary artery disease) Sister Breast cancer 3 sisters with breast cancer Brother Leukemia Father CAD (coronary artery disease) Denies family history of Clotting disorder Dementia Chronic kidney disease (CKD) Suicide Anesthesia complication Bleeding disorder Lung disease Stroke Social History Smoking and tobacco/nicotine status: former use of tobacco/nicotine Quit status (tobacco/nicotine): has quit using Year quit tobacco: quit 1990s Alcohol intake: never Substance/Drug Use: never Household members: spouse and family Marital status: Number of children: 4 Highest education level completed: High School Graduate Current occupational status: retired 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 Female Reproductive History: Spontaneous abortions: No Physical Exam Const: GENERAL APPEARANCE: cooperative ORIENTATION/CONSCIOUSNESS: Yes awake, Yes oriented to person, Yes oriented to place and Yes oriented to time HENMT: COMMON NORMALS: normocephalic, atraumatic and hearing grossly normal bilaterally HEAD & SCALP: normocephalic and atraumatic Resp: COMMON NORMALS: normal respiratory effort, No retractions, No use of accessory muscles and clear to auscultation bilaterally AUSCULTATION: clear to auscultation bilaterally Cardio: COMMON NORMALS: regular rate, regular rhythm and No murmurs present (Cardio) RATE: regular rate RHYTHM: regular rhythm GI: COMMON NORMALS: Soft to palpation and No hepatosplenomegaly present AUSCULTATION: Yes normoactive bowel sounds PALPATION: Yes Soft to palpation, No Tenderness to palpation present (GI), No Guarding due to palpation present (GI) and Yes No hepatosplenomegaly present Extremity: COMMON NORMALS: normal to inspection, capillary refill normal, no clubbing, cyanosis or edema, no calf tenderness and no pedal edema Neuro: SENSORIUM/ORIENTATION: Yes oriented to person, Yes oriented to place and Yes oriented to time Skin: COMMON NORMALS: no rashes or lesions noted GENERAL SKIN EXAM: no rashes or lesions noted Course Vital Signs: Vital signs: Vital Signs Temperature 97.7 F 04/29/24 12:51 Pulse Rate 77 04/29/24 14:11 Respiratory Rate 16 04/29/24 12:51 Blood Pressure 150/104 04/29/24 14:11 Pulse Oximetry 96 04/29/24 14:11 Oxygen Delivery Me thod Room Air 04/29/24 13:11 MDM - Extremity (Nontraumatic) Medical Decision Making No fractures on 8 or any of the areas identified she does have quite a bit discomfort think she sprained her shoulder and likely her wrist as well place her in a sling. Tylenol ibuprofen ice if not improving follow-up with her primary care doctor and can reevaluate if needed. Advised patient she is likely to be more sore tomorrow than she is today. Lab Data Radiology Impressions Ribs X-Ray 04/29/24 13:08 IMPRESSION: 1. No acute rib fracture. 2. No acute cardiopulmonary process noted. Shoulder X-Ray 04/29/24 13:08 IMPRESSION: 1. No acute fracture visualized. 2. Degenerative changes. Soft tissue calcification just above the humeral head that might reflect calcific tendinitis or bursitis. Wrist X-Ray 04/29/24 13:08 IMPRESSION: 1. No acute fracture. Degenerative changes and chondrocalcinosis. All radiology interpretation(s) finalized by discharge Discharge Plan Discharge Patient Disposition: Home Clinical Impression: Fall, Sprain of shoulder, right, Sprain of wrist, right Condition: Stable Prescriptions: No Action docusate sodium [Colace] 100 mg capsule 100 mg PO BID PRN (Reason: constipation) (DME) diaetic shoes with 3 inserts See Rx Instructions .Route .MEDSUPPLY Qty: 1 0RF Rx Instructions: As directed to HOME cholecalciferol (vitamin D3) [Vitamin D3] 25 mcg (1,000 unit) capsule 25 mcg PO DAILY Qty: 90 2RF (DME) diabetic supplies, miscellan. Misc See Rx Instructions .ROUTE .MEDSUPPLY Qty: 100 2RF Rx Instructions: As directed cetirizine 10 mg tablet 10 mg PO DAILY Qty: 90 3RF (DME) lancets [Accu-Chek Softclix Lancets] Misc See Rx Instructions .ROUTE .COMPLEX Qty: 300 10RF Dose Instruction: TEST BLOOD SUGAR DIRECTED Rx Instructions: TEST BLOOD SUGAR DIRECTED trazodone 100 mg tablet 100 mg PO DAILY Qty: 90 3RF gabapentin 400 mg capsule 400 mg PO BID Qty: 120 6RF pantoprazole [Protonix] 40 mg tablet,delayed release (DR/EC) 40 mg PO BID 30 Days Qty: 120 6RF Ozempic 0.25 mg or 0.5 mg (2 mg/3 mL) pen injector 0.5 mg SUBCUT Q7D Qty: 3 6RF Rx Instructions: INJECT 0.5mg SUBCUTANEOUSLY EVERY 7 DAYS (DME) Accu-Chek Guide test strips Strip See Rx Instructions .ROUTE .COMPLEX Qty: 300 10RF Dose Instruction: TEST BLOOD SUGAR DIRECTED Rx Instructions: TEST BLOOD SUGAR DIRECTED potassium chloride 20 mEq tablet,ER particles/crystals 20 meq PO BID Qty: 180 0RF aspirin 325 mg Tablet 325 mg PO DAILY metoprolol tartrate 25 mg tablet 25 mg PO BID Rx Instructions: TAKE 1 TABLET TWICE DAILY hydrocodone-acetaminophen 7.5-325 mg tablet See Rx Instructions .ROUTE .COMPLEX Rx Instructions: TAKE 1 TO 2 TABLETS BY MOUTH EVERY 4 TO 6 HOURS NEEDED FOR PAIN MAX OF FIVE PER DAY, hold within 4 hrs of planned sleep FOR 28 DAYS spironolactone 25 mg tablet 12.5 mg PO DAILY Rx Instructions: TAKE 1/2 TABLET EVERY DAY simvastatin 20 mg tablet 20 mg PO DAILY Rx Instructions: TAKE 1 TABLET EVERY DAY metformin 1,000 mg tablet 1,000 mg PO BID Rx Instructions: TAKE 1 TABLET TWICE DAILY oxybutynin chloride 5 mg tablet 5 mg PO DAILY Rx Instructions: TAKE 1 TABLET EVERY DAY fluoxetine 20 mg capsule 20 mg PO DAILY Rx Instructions: TAKE 1 CAPSULE EVERY DAY fluticasone propionate 50 mcg/actuation spray,suspension 1 spray intranasal DAILY PRN (Reason: Allergy Symptoms) Rx Instructions: USE 1 SPRAY IN EACH NOSTRIL TWICE DAILY Discharge Orders: Discharge ED (Routine); Ordered 04/29/24 Ordered By: Amrit Santana Referrals: Nati Mcclure MD [Primary Care Provider] - Discharge Diet: Usual diet Discharge Activity: Increase activity as tolerated Patient Instructions: Opioid Safety, Pain Management Activity Restrictions/Additional Instructions: Thank you for choosing [facility] for your healthcare needs today. It is very important that you follow up as instructed or that you return to the Emergency Department should you have concerns or if your condition changes or worsens in any way. You are seen in the emergency room after a fall x-rays of your wrist elbow and shoulder and ribs on the right side were all negative for acute fracture. Is likely you will be very sore for the next few days due to the fall. You were given an arm sling to use for comfort. You can use Tylenol and ibuprofen in addition to this if not improving or worsens follow-up your primary care doctor. Print Language: Indonesian Coding Level of Care Code ED [employer] for [employer]
[2024-04-29 14:11] VITALS: BP 150/104; PULSE 77; O2SAT 96
== END 2024-04-29 14:12 | disposition home or self-care (01) ==
PROVIDERS: Emergency Provider Family Medicine; PCP Family Medicine
DX: S43.401A Unspecified sprain of right shoulder joint, initial encounter (principal); S63.501A Unspecified sprain of right wrist, initial encounter; W19.XXXA Unspecified fall, initial encounter; Z79.84 Long term (current) use of oral hypoglycemic drugs; Z87.891 Personal history of nicotine dependence; E11.40 Type 2 diabetes mellitus with diabetic neuropathy, unspecified; I25.10 Atherosclerotic heart disease of native coronary artery without angina pectoris; E78.5 Hyperlipidemia, unspecified
CPT/HCPCS: 71101; 73030; 73080; 73110; 99284

== ENCOUNTER 2024-05-06 09:03 | Day surgery (SDC) | payer MEDICARE, MEDICAID, SELFPAY ==
[2024-05-06 09:31] VITALS: BP 143/81; PULSE 73; RESP 18; TEMP 36.1; O2SAT 97; BMI 32.9
[2024-05-06 09:42] LABS: Glucose Point of Care 96 mg/dL (70-110)
[2024-05-06] MEDS: sodium chloride 0.9% 500 ML 15 ML IV (09:43)
--- NOTE | 2024-05-06 09:43 | ANES.PREANE2 ---
Pre-Anesthetic Assessment Height/Weight: Height 1.57 m Weight 81.647 kg Temp Pulse Resp BP Pulse Ox O2 Del Method 97.0 F L 73 18 143/81 97 Room Air 05/06/24 09:05/06/24 09:31 05/06/24 09:31 05/06/24 09:31 05/06/24 09:31 05/06/24 09:31 Operation Date: 05/06/24 10:15 Proposed Procedures p EGD 07488, 50477, G0105, K21.9, Z12.11x2, K44.9(Not Applicable) - Manuel Spencer DO s Colonoscopy(Not Applicable) - Manuel Spencer DO Last intake: Intake Last Liquid Date 05/05/24 Last Liquid Time 21:00 Last Solid Date 05/04/24 Last Solid Time 17:00 Social No alcohol and No tobacco Exam alert, oriented x 3, clear to auscultation bilaterally and regular rate & rhythm Airway Submandibular: within normal limits Cervical ROM: within normal limits Mallampati: Class II Dentition: full History/ROS No significant history except as noted Pulmonary Sleep Apnea (Non-compliant) CV/HEM Coronary Artery Disease and Palpitations PT states chest pain form chart is from palpitations. She feels the palpitations. No pain with exertion or signs of angina. None reported Hepatic None reported GI Gastroesophageal Reflux Disease Asymptomatic Metabolic Diabetes Mellitus and Hyperlipidemia BG 96. [facility] [place] [place] Fibromyalgia Neuropsych Neuropathy and None reported Anesthetic Plan ASA status: 3 Anesthesia: MAC Medications/Allergies Home Medications ?Medication ?Instructions ?Recorded ?Confirmed ?Last Taken ?Type aspirin 325 mg tablet 325 mg PO DAILY 09/18/19 05/06/24 04/29/24 History docusate sodium 100 mg capsule 100 mg PO BID PRN constipation 07/10/21 05/06/24 05/05/24 History (Colace) cholecalciferol (vitamin D3) 25 25 mcg PO DAILY #90 caps 10/11/21 05/06/24 05/05/24 Rx mcg (1,000 unit) capsule (Vitamin D3) diabetic supplies, miscellan. #100 ea 10/11/21 04/29/24 Unknown Rx cetirizine 10 mg tablet 10 mg PO DAILY #90 tabs 01/22/22 05/06/24 05/05/24 Rx lancets (Accu-Chek Softclix #300 ea 01/02/23 04/29/24 Unknown Rx Lancets) fluoxetine 20 mg capsule 20 mg PO DAILY 04/24/23 05/06/24 05/05/24 History fluticasone propionate 50 1 spray intranasal DAILY PRN 04/24/23 05/06/24 05/05/24 History mcg/actuation nasal Allergy Symptoms spray,suspension metformin 1,000 mg tablet 1,000 mg PO BID 04/24/23 05/06/24 05/05/24 History oxybutynin chloride 5 mg tablet 5 mg PO DAILY 04/24/23 05/06/24 05/05/24 History simvastatin 20 mg tablet 20 mg PO DAILY 04/24/23 05/04/24 05/04/24 History spironolactone 25 mg tablet 12.5 mg PO DAILY 04/24/23 05/04/24 05/04/24 History diaetic shoes with 3 inserts #1 ea 05/29/23 04/29/24 Unknown Rx metoprolol tartrate 25 mg tablet 25 mg PO BID 10/03/23 05/06/24 05/06/24 History trazodone 100 mg tablet 100 mg PO DAILY #90 tabs 03/15/24 05/04/24 05/04/24 Rx gabapentin 400 mg capsule 400 mg PO BID Neuropathy #120 caps 03/18/24 05/06/24 05/05/24 Rx pantoprazole 40 mg tablet,delayed 40 mg PO BID 1 month #120 tabs 03/18/24 05/06/24 05/06/24 Rx release (Protonix) semaglutide 0.25 mg or 0.5 mg (2 0.5 mg (0.736 mL) SUBCUT Q7D #3 mL 03/18/24 05/06/24 04/26/24 Rx mg/3 mL) subcutaneous pen injector (Ozempic) blood sugar diagnostic (Accu-Chek #300 strips 04/17/24 04/29/24 Unknown Rx Guide test strips) potassium chloride 20 mEq 20 meq PO BID #180 tabs 04/23/24 05/06/24 05/05/24 Rx tablet,extended release(part/cryst) hydrocodone 7.5 mg-acetaminophen See Rx Instructions .Route .COMPLEX 04/29/24 05/06/24 05/05/24 History 325 mg tablet Allergies Allergy/AdvReac Type Severity Reaction Status Date / Time celecoxib (From Celebrex) Allergy ALGY-Rash Verified 05/06/24 09:29 codeine Allergy ALGY-Rash Verified 05/06/24 09:29 lisinopril Allergy ALGY-Rash Verified 05/06/24 09:29 lorazepam (From Ativan) Allergy ADR-Halluci Verified 05/06/24 09:29 nating naproxen Allergy ALGY-Rash Verified 05/06/24 09:29 nitroglycerin Allergy ALGY-Rash Verified 05/06/24 09:29 oxycodone (From Percodan) Allergy ALGY-Rash Verified 05/06/24 09:29 tramadol (From Ultram) Allergy ALGY-Rash Verified 05/06/24 09:29 Semaglutide taken 24 April 2024, K+, metformin, gabapentin, spironolactone PFSH Anesthesia Medical History Obesity Chronic back pain greater than 3 months duration goes to pain clinic for hydrocodone Type 2 diabetes mellitus without complications Urge incontinence of urine GERD without esophagitis Diabetic peripheral neuropathy associated with type 2 diabetes mellitus Insomnia Major depression Neuropathy Atherosclerosis Paroxysmal cardiac arrhythmia Palpitations Hypertension Coronary artery disease Hyperlipidemia Fibromyalgia Surgical History Hx of colonoscopy 2.23.15--normal; repeat 10 yrs Hx of coronary angiogram 8.17.15 mild CAD; no intervention Hx of esophagogastroduodenoscopy normal Hx of bone marrow donation History of arthroplasty of left shoulder History of arthroscopy of left shoulder History of arthroscopy of right shoulder Hx of tubal ligation Hx of appendectomy History of bilateral carpal tunnel release Hx of cataract extraction OU History of back surgery History of bilateral knee replacement Hx of non-cataract eye surgery for floaters Family History Mother Diabetes CAD (coronary artery disease) Sister Breast cancer 3 sisters with breast cancer Brother Leukemia Father CAD (coronary artery disease) Denies family history of Clotting disorder Dementia Chronic kidney disease (CKD) Suicide Anesthesia complication Bleeding disorder Lung disease Stroke Social History Smoking and tobacco/nicotine status: former use of tobacco/nicotine Quit status (tobacco/nicotine): has quit using Year quit tobacco: quit 1990s Alcohol intake: never Substance/Drug Use: never Household members: spouse and family Marital status: Number of children: 4 Highest education level completed: High School Graduate Current occupational status: retired 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
--- NOTE | 2024-05-06 10:13 | P.HPUD_ITS ---
Surgery/Procedure H&P Update DATE OF PROCEDURE: May 06, 2024 DATE H&P PERFORMED: 04/27/24 H&P UPDATE INFORMATION: I have reviewed H&P completed within last 30 days, I have examined patient prior to procedure and No changes to prior documentation PLANNED PROCEDURE: Operation Date: 05/06/24 10:15 Proposed Procedures p EGD 82694, 63414, G0105, K21.9, Z12.11x2, K44.9(Not Applicable) - DO babs Jackson Colonoscopy(Not Applicable) - Manuel Spencer DO
[2024-05-06 10:25] LABS: Blood Urea Nitrogen 13 mg/dL (8-23); Calcium 8.8 mg/dL (8.5-10.5); Carbon Dioxide 28 mmol/L (22-29); Chloride 102 mmol/L (98-107); Creatinine Clr Calc Pharmacy 66.6387; Glomerular Filtration Rate 83.2 mL/min (90-130); Glucose 97 mg/dL (65-115); Osmolality Calculated 294 mOsm/kg (285-295); Sodium 142 mmol/L (136-145)
[2024-05-06 11:01] VITALS: BP 120/89; PULSE 82; RESP 16; TEMP 36.2; O2SAT 96
[2024-05-06 11:21] VITALS: BP 153/99; PULSE 73; RESP 18; O2SAT 95
--- NOTE | 2024-05-06 11:30 | ANE.PACU2 ---
Inpatient post-anesthesia follow up: Airway intact: Yes Vital signs: Temperature 97.1 F Pulse Rate 73 Respiratory Rate 18 Blood Pressure 153/99 Pulse Oximetry 95 Oxygen Delivery Me thod Room Air Oxygen Flow Rate Fraction of Inspir ed Oxygen Hydration adequate: Yes Nausea and vomiting: No Pain level: 1 Mental status: Baseline
== END 2024-05-06 11:30 | disposition home or self-care (01) ==
PROVIDERS: Anesthesiology; PCP Family Medicine; Visit Provider Surgery
PROC: 0DJ08ZZ Inspection of Upper Intestinal Tract, Via Natural or Artificial Opening Endoscopic (ICD-10-PCS; principal; 2024-05-06 10:15)
PROC: 0DJD8ZZ Inspection of Lower Intestinal Tract, Via Natural or Artificial Opening Endoscopic (ICD-10-PCS; CPT 45378; 2024-05-06 10:15)
DX: Z12.11 Encounter for screening for malignant neoplasm of colon (principal); K44.9 Diaphragmatic hernia without obstruction or gangrene; K29.50 Unspecified chronic gastritis without bleeding; I25.10 Atherosclerotic heart disease of native coronary artery without angina pectoris; K21.9 Gastro-esophageal reflux disease without esophagitis; E78.5 Hyperlipidemia, unspecified; E11.40 Type 2 diabetes mellitus with diabetic neuropathy, unspecified; Z79.82 Long term (current) use of aspirin; Z79.84 Long term (current) use of oral hypoglycemic drugs; Z79.85 Long-term (current) use of injectable non-insulin antidiabetic drugs; Z88.5 Allergy status to narcotic agent; Z88.0 Allergy status to penicillin; I10 Essential (primary) hypertension; M79.7 Fibromyalgia; Z87.891 Personal history of nicotine dependence
CPT/HCPCS: 36416; 43239; 80048; 82962; 88305; 88342; G0121; J2704; J7040

== ENCOUNTER → 2024-05-18 07:52 | Outpatient (BNVA) | payer MEDICARE, SELFPAY | PROVIDERS: PCP Family Medicine; Visit Provider Podiatrist Foot & Ankle Surgery | DX: E11.42 Type 2 diabetes mellitus with diabetic polyneuropathy (principal); L60.3 Nail dystrophy; Z79.84 Long term (current) use of oral hypoglycemic drugs | CPT/HCPCS: 11721 ==

== ENCOUNTER → 2024-05-27 09:03 | Outpatient (BNVA) | payer MEDICARE, MEDICAID, SELFPAY | PROVIDERS: PCP Family Medicine; Visit Provider Surgery | DX: Z09 Encounter for follow-up examination after completed treatment for conditions other than malignant neoplasm (principal) | CPT/HCPCS: 99213 ==

== ENCOUNTER → 2024-06-02 14:28 | Outpatient (BNVA) | payer MEDICARE, SELFPAY | PROVIDERS: PCP Family Medicine; Visit Provider Physician Assistant | DX: M75.101 Unspecified rotator cuff tear or rupture of right shoulder, not specified as traumatic (principal); M75.41 Impingement syndrome of right shoulder | CPT/HCPCS: 20610; 73030; 99213; J3301; J9999 ==

== ENCOUNTER → 2024-07-20 11:52 | Outpatient (BNVA) | payer MEDICARE, SELFPAY | PROVIDERS: PCP Family Medicine; Visit Provider Family Medicine | DX: R23.3 Spontaneous ecchymoses (principal) | CPT/HCPCS: 85025 ==

== ENCOUNTER → 2024-08-17 07:43 | Outpatient (BNVA) | payer MEDICARE, SELFPAY | PROVIDERS: PCP Family Medicine; Visit Provider Podiatrist Foot & Ankle Surgery | DX: E11.8 Type 2 diabetes mellitus with unspecified complications (principal); E11.42 Type 2 diabetes mellitus with diabetic polyneuropathy; L60.3 Nail dystrophy; Z79.84 Long term (current) use of oral hypoglycemic drugs | CPT/HCPCS: 11721 ==

== ENCOUNTER → 2024-09-08 14:05 | Outpatient (BNVA) | payer MEDICARE, SELFPAY | PROVIDERS: PCP Family Medicine; Visit Provider Physician Assistant | DX: S49.91XA Unspecified injury of right shoulder and upper arm, initial encounter (principal); M75.41 Impingement syndrome of right shoulder; W19.XXXA Unspecified fall, initial encounter | CPT/HCPCS: 20610; 99213; J3301; J9999 ==

== ENCOUNTER → 2024-10-14 09:58 | Outpatient (BNVA) | payer MEDICARE, SELFPAY | PROVIDERS: PCP Family Medicine; Visit Provider Internal Medicine Cardiovascular Disease | DX: R29.810 Facial weakness (principal); I25.10 Atherosclerotic heart disease of native coronary artery without angina pectoris; E78.5 Hyperlipidemia, unspecified; I10 Essential (primary) hypertension; Z79.82 Long term (current) use of aspirin; Z86.73 Personal history of transient ischemic attack (TIA), and cerebral infarction without residual deficits | CPT/HCPCS: 99214 ==

== ENCOUNTER 2024-10-21 08:32 | Outpatient (CLI) | payer MEDICARE, SELFPAY ==
--- NOTE | 2024-10-21 09:00 | CT_ITS ---
WS: [id number] CT HEAD TECHNIQUE: Noncontrast CT of the head obtained from the skullbase to the vertex. CLINICAL INFORMATION: left facial and LUE weakness COMPARISON: 2014 DLP: 1006.[address] scans at [facility] use at least one of these dose optimization techniques: automated exposure control; mA and/or kV adjustment per patient size (includes targeted exams where dose is matched to clinical indication); or iterative reconstruction. FINDINGS: No evidence of intracranial hemorrhage or mass effect. Ventricular system and basal cisterns are patent. Mild small vessel changes with mild parenchymal volume loss. No extra-axial fluid collections. No evidence of mass or mass effect. Vascular calcification. Paranasal sinuses and mastoid air cells are well aerated. .Normal visualized soft tissues. CT/CT head wo con* [id number] IMPRESSION: 1. No evidence of intracranial hemorrhage or mass effect. 2. Mild small vessel changes. Mild parenchymal volume loss. 3. Vascular calcification. 4. No acute intracranial findings.
== END 2024-10-21 08:33 | disposition home or self-care (01) ==
LOC: RAD 08:33
PROVIDERS: PCP Family Medicine; Visit Provider Internal Medicine Cardiovascular Disease
DX: Z86.73 Personal history of transient ischemic attack (TIA), and cerebral infarction without residual deficits (principal); R29.810 Facial weakness; J84.9 Interstitial pulmonary disease, unspecified; I67.89 Other cerebrovascular disease; R90.89 Other abnormal findings on diagnostic imaging of central nervous system; R93.0 Abnormal findings on diagnostic imaging of skull and head, not elsewhere classified
CPT/HCPCS: 70450

== ENCOUNTER → 2024-10-22 10:55 | Outpatient (BNVA) | payer MEDICARE, SELFPAY | PROVIDERS: PCP Family Medicine; Visit Provider Family Medicine | DX: I10 Essential (primary) hypertension (principal); E11.9 Type 2 diabetes mellitus without complications; D53.9 Nutritional anemia, unspecified; E55.9 Vitamin D deficiency, unspecified; R79.89 Other specified abnormal findings of blood chemistry | CPT/HCPCS: 80048; 82306; 82607; 82746; 83036; 83735; 85025 ==

== ENCOUNTER 2024-11-13 06:41 | Outpatient (CLI) | payer MEDICARE, SELFPAY ==
--- NOTE | 2024-11-13 07:00 | USCV_ITS ---
Kellie Cash Age: 68 Gender: F : 1955 Exam Date: 11/13/2024 06:58 Ordering Phys: Andres Valencia MD ([email or web address]) Technologist: Exam Location: [facility] [place] Indication: cva BP: 120 / 70 HR: 69 Rhythm: Sinus Technical Quality: Adequate MEASUREMENTS (Male / Female) Normal Values 2D ECHO LV Diastolic Diameter PLAX 4.0 cm 4.2 - 5.9 / 3.9 - 5.3 cm IVS Diastolic Thickness 1.2 cm 0.6 - 1.0 / 0.6 - 0.9 cm IVS Systolic Thickness 1.5 cm LVPW Diastolic Thickness 1.2 cm 0.6 - 1.0 / 0.6 - 0.9 cm LVPW Systolic Thickness 1.6 cm LVOT Diameter 2.1 cm LV Ejection Fraction 2D Teich 61.2 % LV Ejection Fraction MOD 4C 66.5 % LV Ejection Fraction MOD 2C 69.5 % LV Ejection Fraction 2C AL 69.3 % LA Diameter 3.6 cm RA Systolic Volume 4C AL 21.6 ml RA Systolic Volume 4C MOD 20.0 ml LA Sys Volume AL 45.6 cm cubed LA Sys Volume Index AL 22.9 cm cubed/m squared Aorta at Sinotubular Diameter 2.7 cm IVC Diameter 1.4 cm M-MODE LA Ao Ratio MM 1.2 MV E Point Septal Separation 1.5 cm AV Cusp Separation MM 1.6 cm DOPPLER AV Peak Velocity 101.0 cm/s LVOT Peak Velocity 87.0 cm/s AV Area Cont Eq vti 3.5 cm squared AV Area Cont Eq pk 3.0 cm squared MV Peak Velocity 88.0 cm/s MV Area PHT 3.9 cm squared Mitral E to A Ratio 1.0 TV Peak Velocity 232.5 cm/s TR Peak Velocity 234.0 cm/s TR Peak Gradient 21.9 mmHg TV Peak E Velocity 68.0 cm/s PV Peak Velocity 91.0 cm/s FINDINGS Left Ventricle Normal left ventricular size and systolic function, EF 69%no regional wall motion abnormalities. . Mild left ventricular hypertrophy. Grade II/IV diastolic dysfunction, moderately elevated filling pressures. Right Ventricle The right ventricle is normal in size and function. Right Atrium The right atrium is normal in size. Left Atrium The left atrium is normal in size. Mitral Valve Thickened mitral valve. Aortic Valve Thickened aortic valve. Tricuspid Valve Trace to mild tricuspid valve regurgitation. Estimated pulmonary artery peak systolic pressure 25 mm of Hg. Pulmonic Valve Pulmonic valve not well visualized. Pericardium Normal pericardium without effusion. Aorta Normal ascending aorta dimension. IVC The inferior vena cava appears normal. CONCLUSIONS Normal left ventricular size and systolic function, EF 69%no regional wall motion abnormalities. . Mild left ventricular hypertrophy. Grade II/IV diastolic dysfunction, moderately elevated filling pressures. Thickened aortic and mitral valve. Trace to mild tricuspid valve regurgitation. Estimated pulmonary artery peak systolic pressure 25 mm of Hg. There is no pericardial effusion. There are no intracardiac masses. Compared to the study from 10/30/2017, there is development of left-ventricular diastolic dysfunction Dr Andres Valencia MD FAC (Electronically Signed) Final Date: 15 November 2024 22:49 S
--- NOTE | 2024-11-13 07:45 | USCV_ITS ---
Kellie Cash Age: 68 Gender: F : 1955 Exam Date: 11/13/2024 07:16 Ordering Phys: Andres Valencia MD ([email or web address]) Technologist: Exam Location: [facility] [place] Indication: cva Risk Factors: Previous Vascular Surgery: Right Brachial BP: / Left Brachial BP: / Right Left Velocity (cm/s) Spectral Plaque Velocity (cm/s) Spectral Plaque Syst/Diast Broadening Syst/Diast Broadening 68.50/ 20.60 Prox CCA 49.20 / 12.90 59.50/ 19.30 Mid CCA 54.40 / 11.60 63.40/ 19.30 Distal CCA 43.70 / 11.50 43.70/ 16.70 Prox ICA 26.70 / 8.60 63.30/ 26.90 Mid ICA 64.30 / 24.60 53.00/ 24.00 Distal ICA 73.90 / 30.70 59.50 ECA 43.60 1.00 ICA/CCA 1.70 Antegrade Vertebral Antegrade 33.80/ 7.70 cm/s 35.30/ 12.20 cm/s Tri Subclavian Tri 79.50 38.00 FINDINGS Normal Doppler flow velocities bilaterally. Intimal thickening in the ICA and CCA is bilaterally. Antegrade flow in the vertebral arteries bilaterally. Normal Doppler velocities in the subclavian and external carotid arteries bilaterally CONCLUSIONS 1. Intimal thickening of the common carotid and internal carotid arteries bilaterally with no unstable plaques or significant obstructive lesions 2. No significant stenosis in the external carotid, subclavian or vertebral arteries bilaterally 3. No similar previous studies are available for comparison Dr Andres Valencia MD [facility] (Electronically Signed) Final Date: 13 November 2024 13:31 S
== END 2024-11-13 06:42 | disposition home or self-care (01) ==
LOC: RAD 06:42
PROVIDERS: PCP Family Medicine; Visit Provider Internal Medicine Cardiovascular Disease
DX: Z86.73 Personal history of transient ischemic attack (TIA), and cerebral infarction without residual deficits (principal); R29.810 Facial weakness; I63.9 Cerebral infarction, unspecified; I35.8 Other nonrheumatic aortic valve disorders; I36.1 Nonrheumatic tricuspid (valve) insufficiency; I34.89 Other nonrheumatic mitral valve disorders; I51.89 Other ill-defined heart diseases; I51.7 Cardiomegaly
CPT/HCPCS: 93306; 93880

== ENCOUNTER → 2024-11-17 07:56 | Outpatient (BNVA) | payer MEDICARE, SELFPAY | PROVIDERS: PCP Family Medicine; Visit Provider Podiatrist Foot & Ankle Surgery | DX: E11.42 Type 2 diabetes mellitus with diabetic polyneuropathy (principal); L60.3 Nail dystrophy; E11.8 Type 2 diabetes mellitus with unspecified complications; Z79.84 Long term (current) use of oral hypoglycemic drugs | CPT/HCPCS: 11721 ==

== ENCOUNTER → 2024-12-15 13:26 | Outpatient (BNVA) | payer MEDICARE, SELFPAY | PROVIDERS: PCP Family Medicine; Visit Provider Physician Assistant | DX: M75.42 Impingement syndrome of left shoulder (principal); M75.41 Impingement syndrome of right shoulder; Z98.890 Other specified postprocedural states | CPT/HCPCS: 20610; 73030; 99213; J3301; J9999 ==

== ENCOUNTER 2025-02-15 09:46 | Outpatient (CLI) | payer MEDICARE, MEDICAID, SELFPAY ==
--- NOTE | 2025-02-15 09:54 | MM_ITS ---
WS: [id number] BILATERAL SCREENING DIGITAL TOMOSYNTHESIS MAMMOGRAM WITH CAD HISTORY: SCREENING COMPARISON: 02/14/2024, 01/28/2023 Bilateral CC and MLO views with tomosynthesis and synthetic mammography submitted. Computer aided detection analyzed. Breast composition: There are scattered areas of fibroglandular density. No suspicious masses, microcalcifications or architectural distortion. Benign calcifications. MM/MM scr BI tomosynthesis [id number] IMPRESSION: BI-RADS: 2 - Benign. FOLLOW UP: 1 Year Follow-up
== END 2025-02-15 09:47 | disposition home or self-care (01) ==
LOC: RAD 09:49
PROVIDERS: PCP Family Medicine; Visit Provider Family Medicine
DX: Z12.31 Encounter for screening mammogram for malignant neoplasm of breast (principal); R92.323 Mammographic fibroglandular density, bilateral breasts; R92.1 Mammographic calcification found on diagnostic imaging of breast
CPT/HCPCS: 77063; 77067

== ENCOUNTER → 2025-02-16 08:36 | Outpatient (BNVA) | payer MEDICARE, MEDICAID, SELFPAY | PROVIDERS: PCP Family Medicine; Visit Provider Podiatrist Foot & Ankle Surgery | DX: E11.42 Type 2 diabetes mellitus with diabetic polyneuropathy (principal); L60.3 Nail dystrophy; Z79.84 Long term (current) use of oral hypoglycemic drugs; E11.8 Type 2 diabetes mellitus with unspecified complications | CPT/HCPCS: 11721 ==

== ENCOUNTER → 2025-02-17 13:00 | Outpatient (BNVA) | payer MEDICARE, MEDICAID, SELFPAY | PROVIDERS: PCP Family Medicine; Visit Provider Family Medicine | DX: Z00.00 Encounter for general adult medical examination without abnormal findings (principal); E11.9 Type 2 diabetes mellitus without complications; R79.89 Other specified abnormal findings of blood chemistry; E11.42 Type 2 diabetes mellitus with diabetic polyneuropathy; E55.9 Vitamin D deficiency, unspecified | CPT/HCPCS: 80053; 80061; 82306; 82607; 83036; 84443; 85025 ==